=== PATIENT | female | born 1970 | race African-American/Black ===

== ENCOUNTER 2020-09-15 16:06 | Emergency (ER) | payer OTHER, SELFPAY ==
--- NOTE | ~2020-09-15 | CT_ITS ---
EXAMINATION: CT ABDOMEN AND PELVIS WITH CONTRAST CLINICAL INFORMATION: Epigastric pain COMPARISON: None TECHNIQUE: Multidetector volumetric images were obtained from the superior aspect of the liver through the pubic symphysis following administration 85 mL of Omnipaque 350 intravenous contrast. Sagittal and coronal reformatted images were obtained on the technologist's workstation. Oral contrast: No This CT examination was performed using dose optimization techniques as appropriate, variously including the following: *Automated exposure control *Adjustment of mA and/or kV according to patient size (this includes techniques or standardized protocols for targeted exams where dose is matched to indication/reason for exam; i.e. extremities or head) *Use of iterative reconstruction technique DLP: 461 mGy-cm FINDINGS: LUNG BASES: The visualized lung bases are unremarkable. LIVER, GALLBLADDER, AND BILIARY TREE: The liver is normal in size, shape, and attenuation. There is a 1.7 cm lesion in the caudate lobe measuring fluid the density likely cyst. There is mild periportal edema the gallbladder has been surgically removed. The proximal CBD is dilated measuring 1.2 cm. Distal CBD measures 1.7 x 1.5 cm PANCREAS: Unremarkable. SPLEEN: Unremarkable. ADRENAL GLANDS: Unremarkable. KIDNEYS AND URETERS: The kidneys are normal in size, shape, and attenuation. No hydronephrosis, hydroureter, or calculi seen. No perinephric stranding. BLADDER: Unremarkable. GASTROINTESTINAL TRACT: There is gastric sleeve surgical changes. The small bowel loops are normal caliber. There is moderate stool and gas seen in the right colon without distention. No free air or free fluid seen. ABDOMINAL WALL: There is a small umbilical hernia containing fat. LYMPH NODES: Normal. VASCULAR: Unremarkable. PELVIC VISCERA: The uterus is anteverted and appears unremarkable. No adnexal mass or free fluid seen. OSSEOUS STRUCTURES: There is no lytic or sclerotic process. There is mild bilateral facet arthropathy L4-L5 and L5-S1 disc levels. CT/CT abdomen pelvis w con IMPRESSION: Gastric sleeve surgical changes with a distended stomach. Mild constipation. Left hepatic lobe cyst.
[2020-09-15 17:13] VITALS: BP 180/100; PULSE 92; RESP 20; TEMP 36.1; O2SAT 100; BMI 29.2
[2020-09-15 17:56] LABS: MANUAL DIFF FLAG NO
[2020-09-15 17:57] LABS: Basophils Percent Auto 0.2 % (0-2); Eosinophils Absolute Auto 0.1 X10*3/uL (0.0-0.4); Eosinophils Percent Auto 0.6 % (0-4); Hematocrit 48.3 % (37-47); Hemoglobin 16.2 g/dl (12.0-16.0); Imm Gran Abs Auto 0.03 X10*3/uL (0.00-0.03); Imm Gran Pct Auto 0.2 % (0.0-0.4); Lymphocytes Absolute Auto 0.9 X10*3/uL (1.2-4.9); Lymphocytes Percent Auto 6.6 % (20-40); Mean Corpuscular HGB Conc 33.5 g/dl (31.0-35.0); Mean Corpuscular Hemoglobin 29.8 pg (27.0-33.0); Mean Corpuscular Volume 88.8 fL (80-98); Mean Platelet Volume 10.7 fL (9.4-12.3); Monocytes Absolute Auto 0.5 X10*3/uL (0.1-1.2); Monocytes Percent Auto 3.9 % (2-11); Neutrophils Absolute Auto 12.1 X10*3/uL (2.0-8.3); Neutrophils Percent Auto 88.5 % (45-73); Platelet Count 313 X10*3/uL (160-400); Red Blood Count 5.44 X10*6/uL (4.20-5.50); Red Cell Distribution Width 13.1 % (11.0-16.0); White Blood Count 13.7 X10*3/uL (4.8-10.8)
[2020-09-15 17:59] LABS: Glucose Urine UA NEG (NEG); Leukocyte Esterase Urine NEG (NEG); Nitrite Urine NEG (NEG); Specific Gravity - Urine >= 1.030 (1.005-1.025); Urine Blood NEG (NEG); Urine Ketones NEG (NEG); Urine Protein TRACE MG/DL (NEG-TRACE)
[2020-09-15 18:01] LABS: Appearance Urine CLEAR; Color Urine YELLOW
[2020-09-15 18:40] LABS: Influenza A PCR NEGATIVE (Negative); Influenza B PCR NEGATIVE (Negative); Resp Syncy Virus RNA Qual PCR NEGATIVE (Negative); SARS COV2 PCR INHOUSE NEGATIVE (Negative)
[2020-09-15 20:41] VITALS: BP 171/93; PULSE 89; RESP 18; TEMP 37; O2SAT 99
[2020-09-15 21:32] LABS: Alanine Aminotransferase 179 U/L (0-31); Albumin Level 4.3 g/dL (3.5-5.0); Alkaline Phosphatase 171 U/L (39-117); Anion Gap 12 (12-20); Aspartate Amino Transferase 372 U/L (5-31); Bilirubin Total 0.6 mg/dL (0.0-1.0); Blood Urea Nitrogen 14 mg/dL (9-16); Calcium 9.2 mg/dL (8.4-10.2); Carbon Dioxide 30 mmol/L (22-29); Chloride 103 mmol/L (96-108); Creatinine Clr Calc Pharmacy 71.8; Estimated Glomerular Filt Rate > 60; Glucose Random 105 mg/dL (60-115); Potassium 3.9 mmol/L (3.3-5.1); Sodium 141 mmol/L (135-145); Total Protein 7.2 g/dL (6.5-8.0)
--- NOTE | 2020-09-15 21:38 | ED.ABDPAIN ---
HPI - Abdominal Pain General Chief Complaint: Abdominal Pain Stated Complaint: SYMPTOMS Time Seen by Provider: 09/15/20 21:12 Source: patient Mode of arrival: ambulatory Limitations: no limitations History of Present Illness HPI narrative: Patient comes emergency room complaining of nausea, vomiting, diarrhea, and abdominal cramping, worse in the epigastric area. Patient states she has had this episodes in the past, has been seen by Gastroenterology. Patient states she had an upper endoscopy, she was told that she has a small ?lump somewhere in the stomach?. Patient denies fever chills. Related Data Previous Rx's Medication Instructions Recorded ibuprofen 800 mg tablet 800 mg PO TID PRN #90 tab 03/16/20 ProAir HFA 90 mcg/actuation 2 puff INHALATION Q6H PRN 30 Days 07/19/20 aerosol inhaler #8.5 g NS albuterol sulfate 90 mcg/actuation 2 puff INHALATION QID PRN #18 g 07/30/20 aerosol inhaler fluticasone propionate 110 1 puff INHALATION BID 30 Days #12 g 08/30/20 mcg/actuation HFA aerosol inhaler hyoscyamine sulfate 0.125 mg PO QID PRN #10 tab 09/15/20 ondansetron HCl [Zofran] 4 mg PO Q6H PRN #10 tab 09/15/20 Allergies Allergy/AdvReac Type Severity Reaction Status Date / Time No Known Allergies Allergy Unverified 01/22/20 14:59 [No Known Allergies*] Review of Systems Review of Systems Constitutional : No Weight loss, No Fever, No Chills, No Night Sweats, No Fatigue, No Malaise ENT/Mouth : No Hearing loss, No Ear Pain, No Nasal Congestion, No Sinus Pain, No Hoarseness, No sore throat, No Rhinorrhea, No Swallowing Difficulty Eyes: No Eye Pain, No Swelling, No Redness, No Foreign Body, No Discharge, No Vision Changes Cardiovascular : No Chest Pain, No SOB, No Dyspnea on Exertion, No Orthopnea, No Edema, No Palpitations Respiratory : No Cough, No Sputum, No Wheezing, No Smoke Exposure, No Dyspnea Gastrointestinal : Complaining of nausea, vomiting, diarrhea, no constipation, diffuse abdominal cramping, No Hematochezia, No Melena Genitourinary : no irregular bleeding, No Dysuria, No Urinary Frequency, No Hematuria, No Urinary Incontinence, No Urgency, No Flank Pain, No Urinary Flow Changes, No Hesitancy Musculoskeletal : No joint pain, No Myalgias, No Joint Swelling Skin : No Skin Lesions, No rash Neuro : No Weakness, No Numbness, No Paresthesias, No Loss of Consciousness, No Dizziness, No Headache Psych : No Anxiety/Panic, No Depression, No SI/HI/AH/VH, No Social Issues, Heme/Lymph: No Bruising, No Bleeding,No Lymphadenopathy Endocrine : No Polyuria, No Polydipsia, No Temperature Intolerance Physical Exam Vital Signs: Vital Signs: Last Vital Signs Temp 98.6 F 09/15/20 20:41 Pulse 89 09/15/20 20:41 Resp 18 09/15/20 22:00 BP 171/93 H 09/15/20 20:41 Pulse Ox 99 09/15/20 20:41 Body Mass Index 29.2 Appearance: Alert. Oriented X3. No acute distress. Well-appearing Eyes: Pupils equal, round and reactive to light. ENT: Pharynx normal. Moist mucous membranes Neck: Normal inspection. Neck supple. No lymph nodes noted. No crepitus CVS: Normal heart rate and rhythm. Pulses normal. Normal S1 and S2 Respiratory: No respiratory distress. Breath sounds normal. No Wheezing. No rales Abdomen: Soft and mild discomfort to palpation over the epigastric area, No rigidity. No distention. Skin: Skin warm and dry. Normal skin color. Normal skin turgor. Extremities: No lower extremity edema. No lower extremity edema. No Lacerations. No Rash Neuro: Oriented X 3. No motor deficit. No sensory deficit. Moving all extermities. No slurred speech. Course Course Course Narrative: I discussed the labs and imaging with the patient, patient likely having a viral syndrome causing the nausea vomiting and diarrhea. MDM - Abdominal Pain Lab Data Result diagrams: 09/15/20 17:47 09/15/20 20:47 Labs: Lab Results 09/15/20 09/15/20 09/15/20 Range/Units 17:47 17:47 17:48 WBC 13.7 H (4.8-10.8) X10*3/uL RBC 5.44 (4.20-5.50) X10*6/uL Hgb 16.2 H (12.0-16.0) g/dl Hct 48.3 H (37-47) % MCV 88.8 (80-98) fL MCH 29.8 (27.0-33.0) pg MCHC 33.5 (31.0-35.0) g/dl RDW 13.1 (11.0-16.0) % Plt Count 313 (160-400) X10*3/uL MPV 10.7 (9.4-12.3) fL Immature Gran % (Auto) 0.2 (0.0-0.4) % Neut % (Auto) 88.5 H (45-73) % Lymph % (Auto) 6.6 L (20-40) % [place] % (Auto) 3.9 (2-11) % Eos % (Auto) 0.6 (0-4) % Baso % (Auto) 0.2 (0-2) % Lymph # (Auto) 0.9 L (1.2-4.9) X10*3/uL [place] # (Auto) 0.5 (0.1-1.2) X10*3/uL Eos # (Auto) 0.1 (0.0-0.4) X10*3/uL Baso # (Auto) 0.0 (0.0-0.2) X10*3/uL Abs Immat Gran (auto) 0.03 (0.00-0.03) X10*3/uL Absolute Neuts (auto) 12.1 H (2.0-8.3) X10*3/uL Absolute Nucleated RBC 0.000 (0.0-0.012) X10*3/uL Nucleated RBC % (auto) 0.0 (0.0-0.2) /100WBC Hold Blue Top SEE NOTE Sodium (135-145) mmol/L Potassium (3.3-5.1) mmol/L Chloride (96-108) mmol/L Carbon Dioxide (22-29) mmol/L Anion Gap (12-20) BUN (9-16) mg/dL Creatinine (0.5-1.4) mg/dL Estim Creat Clear Calc Estimated GFR Random Glucose (60-115) mg/dL Calcium (8.4-10.2) mg/dL Total Bilirubin (0.0-1.0) mg/dL Direct Bilirubin (0.0-0.5) mg/dL AST (5-31) U/L ALT (0-31) U/L Alkaline Phosphatase (39-117) U/L Total Protein (6.5-8.0) g/dL Albumin (3.5-5.0) g/dL Lipase (8-78) U/L Urine Color Urine Appearance Urine pH (5.0-8.0) Ur Specific [place] (1.005-1.025) Urine Protein (NEG-TRACE) MG/DL Urine Glucose (UA) (NEG) MG/DL Urine Ketones (NEG) MG/DL Urine Blood (NEG) Urine Nitrite (NEG) Ur Leukocyte Esterase (NEG) Urine Opiates Screen (Not Detect) Ur Barbiturates Screen (Not Detect) Ur Phencyclidine Scrn (Not Detect) Ur Amphetamines Screen (Not Detect) U Benzodiazepines Scrn (Not Detect) Urine Cocaine Screen (Not Detect) U Marijuana (THC) Screen (Not Detect) Coronavirus (PCR) NEGATIVE (Negative) Influenza Type A (PCR) NEGATIVE (Negative) Influenza Type B (PCR) NEGATIVE (Negative) RSV RNA Qual (PCR) NEGATIVE (Negative) 09/15/20 09/15/20 09/15/20 Range/Units 17:51 17:51 20:47 WBC (4.8-10.8) X10*3/uL RBC (4.20-5.50) X10*6/uL Hgb (12.0-16.0) g/dl Hct (37-47) % MCV (80-98) fL MCH (27.0-33.0) pg MCHC (31.0-35.0) g/dl RDW (11.0-16.0) % Plt Count (160-400) X10*3/uL MPV (9.4-12.3) fL Immature Gran % (Auto) (0.0-0.4) % Neut % (Auto) (45-73) % Lymph % (Auto) (20-40) % [place] % (Auto) (2-11) % Eos % (Auto) (0-4) % Baso % (Auto) (0-2) % Lymph # (Auto) (1.2-4.9) X10*3/uL [place] # (Auto) (0.1-1.2) X10*3/uL Eos # (Auto) (0.0-0.4) X10*3/uL Baso # (Auto) (0.0-0.2) X10*3/uL Abs Immat Gran (auto) (0.00-0.03) X10*3/uL Absolute Neuts (auto) (2.0-8.3) X10*3/uL Absolute Nucleated RBC (0.0-0.012) X10*3/uL Nucleated RBC % (auto) (0.0-0.2) /100WBC Hold Blue Top Sodium 141 (135-145) mmol/L Potassium 3.9 (3.3-5.1) mmol/L Chloride 103 (96-108) mmol/L Carbon Dioxide 30 H (22-29) mmol/L Anion Gap 12 (12-20) BUN 14 (9-16) mg/dL Creatinine 0.84 (0.5-1.4) mg/dL Estim Creat Clear Calc 71.8 Estimated GFR > 60 Random Glucose 105 (60-115) mg/dL Calcium 9.2 (8.4-10.2) mg/dL Total Bilirubin 0.6 (0.0-1.0) mg/dL Direct Bilirubin 0.3 (0.0-0.5) mg/dL AST 372 H (5-31) U/L ALT 179 H (0-31) U/L Alkaline Phosphatase 171 H (39-117) U/L Total Protein 7.2 (6.5-8.0) g/dL Albumin 4.3 (3.5-5.0) g/dL Lipase 79 H (8-78) U/L Urine Color YELLOW Urine Appearance CLEAR Urine pH 6.0 (5.0-8.0) Ur Specific [place] >= 1.030 H (1.005-1.025) Urine Protein TRACE (NEG-TRACE) MG/DL Urine Glucose (UA) NEG (NEG) MG/DL Urine Ketones NEG (NEG) MG/DL Urine Blood NEG (NEG) Urine Nitrite NEG (NEG) Ur Leukocyte Esterase NEG (NEG) Urine Opiates Screen Not Detected (Not Detect) Ur Barbiturates Screen Not Detected (Not Detect) Ur Phencyclidine Scrn Not Detected (Not Detect) Ur Amphetamines Screen Not Detected (Not Detect) U Benzodiazepines Scrn Not Detected (Not Detect) Urine Cocaine Screen POSITIVE H (Not Detect) U Marijuana (THC) Screen POSITIVE H (Not Detect) Coronavirus (PCR) (Negative) Influenza Type A (PCR) (Negative) Influenza Type B (PCR) (Negative) RSV RNA Qual (PCR) (Negative) Imaging Data CT scan - abdomen: Radiologist's impression: COMPARISON: None TECHNIQUE: Multidetector volumetric images were obtained from the superior aspect of the liver through the pubic symphysis following administration 85 mL of Omnipaque 350 intravenous contrast. Sagittal and coronal reformatted images were obtained on the technologist's workstation. Oral contrast: No This CT examination was performed using dose optimization techniques as appropriate, variously including the following: *Automated exposure control *Adjustment of mA and/or kV according to patient size (this includes techniques or standardized protocols for targeted exams where dose is matched to indication/reason for exam; i.e. extremities or head) *Use of iterative reconstruction technique DLP: 461 mGy-cm FINDINGS: LUNG BASES: The visualized lung bases are unremarkable. LIVER, GALLBLADDER, AND BILIARY TREE: The liver is normal in size, shape, and attenuation. There is a 1.7 cm lesion in the caudate lobe measuring fluid the density likely cyst. There is mild periportal edema the gallbladder has been surgically removed. The proximal CBD is dilated measuring 1.2 cm. Distal CBD measures 1.7 x 1.5 cm PANCREAS: Unremarkable. SPLEEN: Unremarkable. ADRENAL GLANDS: Unremarkable. KIDNEYS AND URETERS: The kidneys are normal in size, shape, and attenuation. No hydronephrosis, hydroureter, or calculi seen. No perinephric stranding. BLADDER: Unremarkable. GASTROINTESTINAL TRACT: There is gastric sleeve surgical changes. The small bowel loops are normal caliber. There is moderate stool and gas seen in the right colon without distention. No free air or free fluid seen. ABDOMINAL WALL: There is a small umbilical hernia containing fat. LYMPH NODES: Normal. VASCULAR: Unremarkable. PELVIC VISCERA: The uterus is anteverted and appears unremarkable. No adnexal mass or free fluid seen. OSSEOUS STRUCTURES: There is no lytic or sclerotic process. There is mild bilateral facet arthropathy L4-L5 and L5-S1 disc levels. CT/CT abdomen pelvis w con IMPRESSION: Gastric sleeve surgical changes with a distended stomach. Mild constipation. Left hepatic lobe cyst. Discharge Plan Discharge Clinical Impression: Abdominal pain, vomiting, and diarrhea Patient Disposition: Home, Self-Care Instructions: Abdominal Pain (ED) Additional Instructions: Please follow-up with your primary care physician tomorrow. If you have any worsening or new symptoms, please return to the emergency room or call 911 Prescriptions: New hyoscyamine sulfate 0.125 mg tablet,disintegrating 0.125 mg PO QID PRN (Reason: dyspepsia) Qty: 10 RF: 0 ondansetron HCl [Zofran] 4 mg tablet 4 mg PO Q6H PRN (Reason: nausea and vomiting) Qty: 10 RF: 0 No Action ibuprofen 800 mg tablet 800 mg PO TID PRN (Reason: for pain) Qty: 90 RF: 5 albuterol sulfate [ProAir HFA] 90 mcg/actuation HFA aerosol inhaler 2 puff inhalation Q6H PRN (Reason: shortness of breath or wheezing) 30 Days Qty: 8.5 RF: 5 albuterol sulfate 90 mcg/actuation HFA aerosol inhaler 2 puff inhalation QID PRN (Reason: shortness of breath or wheezing) Qty: 18 RF: 5 Flovent HFA 110 mcg/actuation HFA aerosol inhaler 1 puff inhalation BID 30 Days Qty: 12 RF: 5 PMFSH Past Medical History Medical History Asthma Surgical History History of sleeve gastrectomy Family History Family History (Updated 02/07/20 @ 10:12 by ANAMIKA Dumont) Father No problems noted. Mother No problems noted. Social History Social History Smoking Status: Current every day smoker Smoked in Last 30 Days: Yes Use of substances other than those prescribed or required for medical reasons: Yes Substance Use Type: Marijuana Advance Directives: No Advance Directives Information Provided: No Patient : No (DENIES)
[2020-09-15 21:53] LABS: Amphetamine Screen Urine Not Detected (Not Detect); Barbiturates, Urine Not Detected (Not Detect); Benzodiazepines Screen Urine Not Detected (Not Detect); Cannabinoid Screen Urine POSITIVE (Not Detect); Cocaine Screen Urine POSITIVE (Not Detect); Opiate Screen Urine Not Detected (Not Detect); Phencyclidine Screen Urine Not Detected (Not Detect)
[2020-09-15] MEDS: iohexoL 350 MG/ML 100 ML INFUS..BTL IV (21:54)
[2020-09-15 21:57] LABS: Bilirubin Direct 0.3 mg/dL (0.0-0.5); Lipase 79 U/L (8-78)
[2020-09-15 22:00] VITALS: RESP 18
[2020-09-15] MEDS: ondansetron HCL 4 MG/2 ML VIAL IVPUSH (22:24)
--- NOTE | 2020-09-15 22:42 | PC.NURSE ---
pt reports nausea while eating chips in bed. affect is normal. monitoring at this time.
[2020-09-15] MEDS: PHENobarb/Hyoscy/Atropine/Scop 10 ML ELIXIR PO (23:18)
== END 2020-09-15 23:21 | disposition home or self-care (01) ==
PROVIDERS: Nurse Practitioner Family; Emergency Provider Emergency Medicine
DX: R10.13 Epigastric pain (principal); Z20.822 Contact with and (suspected) exposure to COVID-19; R11.10 Vomiting, unspecified; R19.7 Diarrhea, unspecified; K76.89 Other specified diseases of liver; K42.9 Umbilical hernia without obstruction or gangrene; F14.90 Cocaine use, unspecified, uncomplicated; F12.90 Cannabis use, unspecified, uncomplicated
CPT/HCPCS: 0241U; 36415; 74177; 80053; 80076; 80307; 81003; 83690; 85025; 96374; 99284; 99285; J2405; Q9967

== ENCOUNTER → 2021-04-07 13:57 | Outpatient (BNVA) | payer OTHER, SELFPAY | PROVIDERS: PCP Internal Medicine; Referring Provider Internal Medicine; Visit Provider Internal Medicine Cardiovascular Disease | DX: I10 Essential (primary) hypertension (principal); R94.31 Abnormal electrocardiogram [ECG] [EKG]; F17.210 Nicotine dependence, cigarettes, uncomplicated; F12.90 Cannabis use, unspecified, uncomplicated | CPT/HCPCS: 93005; 99202; 99212 ==

== ENCOUNTER 2021-04-21 11:17 | Emergency (ER) | payer OTHER, SELFPAY ==
[2021-04-21] VITALS (8 sets, daily range): BP systolic 140–259; BP diastolic 55–164; PULSE 66–101; RESP 16–18; TEMP 36.7–36.9; O2SAT 97–100; BMI 26.4
--- NOTE | ~2021-04-21 | XR_ITS ---
EXAMINATION: XR CHEST CLINICAL INFORMATION: Hypertension COMPARISON: Chest radiographs 10/14/2019, 11/26/2018, CT abdomen 09/15/2020 TECHNIQUE: Portable upright AP view of the chest was obtained. FINDINGS: Heart is within normal size. The vascularity is normal. There is no airspace consolidation or groundglass opacity or effusion. The hilar and mediastinal contours are unremarkable. No visible acute bony abnormality. XR/XR chest 1V IMPRESSION: Unremarkable examination.
--- NOTE | ~2021-04-21 | CT_ITS ---
EXAMINATION: CT HEAD WITHOUT CONTRAST (STROKE PROTOCOL) CLINICAL INFORMATION: Stroke protocol. Weakness and headache COMPARISON: CT brain 12/02/2018 TECHNIQUE: Contiguous axial imaging was performed from the skull base to vertex without intravenous administration of contrast. This CT examination was performed using dose optimization techniques as appropriate, variously including the following: *Automated exposure control *Adjustment of mA and/or kV according to patient size (this includes techniques or standardized protocols for targeted exams where dose is matched to indication/reason for exam; i.e. extremities or head) *Use of iterative reconstruction technique DLP: 656 mGy-cm FINDINGS: There is no intracranial hemorrhage, hematoma, or extra-axial fluid collection. The ventricles are normal in size. There is no hydrocephalus, edema, or mass effect. The toure-white matter differentiation appears symmetric. There is no acute infarct or mass lesion. The calvarium appears intact. There is no pneumocephalus or orbital emphysema. Is complete opacification of bilateral maxillary sinuses. Rest the paranasal sinuses and mastoid air cells are well-aerated and clear. Thickening. There are no air-fluid levels. CT/CT head for stroke IMPRESSION: No acute intracranial process seen. Chronic bilateral maxillary sinusitis. This critical result was discussed with Dr. Lorrie Campos at 12:22 PMon 04/21/2021. It was ascertained that the content and urgency of the report was understood at the time of direct communication.
--- NOTE | 2021-04-21 11:50 | ECG_ITS ---
Test Reason : HIGH BP Blood Pressure : / mmHG Vent. Rate : 104 BPM Atrial Rate : 104 BPM P-R Int : 136 ms QRS Dur : 080 ms QT Int : 386 ms P-R-T Axes : 054 074 019 degrees QTc Int : 507 ms Sinus tachycardia Minimal voltage criteria for LVH, may be normal variant ( Sokolow-Issa ) Nonspecific T wave abnormality Abnormal ECG When compared with ECG of 14-OCT-2019 10:17, Nonspecific T wave abnormality now evident in Lateral leads Referred By: Lorrie Campos Electronically Signed By:KAYLYN TREVINO MD
--- NOTE | 2021-04-21 11:51 | ED_ITS ---
HPI - Neuro Symptoms/Deficit General Chief Complaint: Neuro Symptoms/Deficit Stated Complaint: headache high bp Time Seen by Provider: 04/21/21 11:49 Source: patient Mode of arrival: ambulatory Limitations: no limitations History of Present Illness HPI Narrative: 50 yo female with hx of HTN on 5 medications amlodipine 10mg, carvedilol 12.5mg BID, hydralazine 25mg TID, HCTZ 25mg daily, losartan 100mg daily reports taking herself off BP medications 2 days ago using cocaine 3 days ago and drinking, feeling dizzy so she stopped her medications. Her spouse noted her BP was very high today, felt weak all over with headaches. Triage noted R sided weakness I do not appreciate that but she is overall diffusely weak and not participating in exam well. very poor historian. Onset (ago): day(s) (yesterday then became much worse this AM) Timing confirmed by: spouse Location: other (head) History of same: No Severity: moderate Quality: weak Relieving factors: none Exacerbating factors: other (used cocaine, did not take medications) Context: gradual onset On Anticoagulants: No Associated symptoms: headaches, malaise and weakness Related Data Home Medications Medication Instructions Recorded Confirmed fluticasone propionate 50 2 spray INTRANASAL DAILY PRN g 02/17/21 04/21/21 mcg/actuation nasal spray,suspension loratadine 10 mg capsule 10 mg PO DAILY PRN 02/17/21 04/21/21 omeprazole 40 mg capsule,delayed 40 mg PO DAILY PRN 02/17/21 04/21/21 release Previous Rx's Medication Instructions Recorded albuterol sulfate 90 mcg/actuation 2 puff INHALATION QID PRN #18 g 02/16/21 aerosol inhaler fluticasone propionate 110 1 puff INHALATION BID 30 Days #12 g 02/16/21 mcg/actuation HFA aerosol inhaler (Flovent HFA) ibuprofen 800 mg tablet 800 mg PO TID PRN #90 tab 02/16/21 carvedilol 25 mg tablet (Coreg) 25 mg PO BID #60 tab 04/07/21 hydralazine 50 mg tablet 50 mg PO BID #60 tab 04/07/21 blood pressure monitor #1 ea 04/18/21 Allergies Allergy/AdvReac Type Severity Reaction Status Date / Time No Known Allergies Allergy Verified 04/18/21 14:49 [No Known Allergies*] Review of Systems Review of Systems: Constitutional : No Fever, No Chills, No Fatigue ENT/Mouth : No sore throat, No Rhinorrhea Eyes: No Eye Pain, No Swelling, No Redness Cardiovascular : No Chest Pain, No SOB, No Dyspnea on Exertion Respiratory : No Cough, No Sputum Gastrointestinal : No Nausea, No Vomiting, No Diarrhea, No abdominal Pain Genitourinary : No Dysuria, No Urinary Frequency, No Hematuria, Musculoskeletal : No joint pain, No Myalgias, No Joint Swelling Skin : No Skin Lesions, No rash Neuro : pos Weakness, No Numbness, No Dizziness, positive Headache Psych : No Anxiety/Panic, No Depression Heme/Lymph: No Bruising, No Bleeding,No Lymphadenopathy Endocrine : No Polyuria, No Polydipsia All other systems reviewed and are negative [facility] Past Medical History Medical History Allergic rhinitis Anxiety Asthma Hemorrhagic gastritis Insomnia Lumbar spondylosis Overweight (BMI 25.0-29.9) Smoker Surgical History History of sleeve gastrectomy Family History Family History Father No problems noted. Mother No problems noted. Social History Social History Housing: Apartment Alcohol intake: current Alcohol intake frequency: holidays/special occasions only Patient Tobacco Use Status: Current everyday Tobacco user Cigarettes Per Day: 6 Second Hand Smoke Exposure: Yes Use of substances other than those prescribed or required for medical reasons: Yes Substance Use Type: Crack/Cocaine Advance Directives: No Advance Directives Information Provided: Yes Patient : No service: No Current occupational status: disabled Physical Exam Vital Signs: Vital Signs: Last Vital Signs Temp 98.0 F 04/21/21 11:58 Pulse 101 H 04/21/21 15:57 Resp 18 04/21/21 15:57 BP 148/76 H 04/21/21 15:57 Pulse Ox 98 04/21/21 15:57 BMI result Body Mass Index 26.4 Appearance: Somnolent Oriented X3. No acute distress. Eyes: Pupils equal, round and reactive to light. EOMi ENT: Pharynx normal. Neck: Normal inspection. Neck supple. CVS: Normal heart rate and rhythm. Pulses normal. Respiratory: No respiratory distress. Breath sounds normal. Abdomen: Soft and nontender. Skin: Skin warm and dry. Normal skin color. Normal skin turgor. Extremities: No lower extremity edema. Neuro: Oriented X 3. No motor deficit. No sensory deficit. CN2-12 intact . no drift Course Course Course Narrative: not a candidate for tPa given low NIH score as well as markedly high blood pressure stroke CT scan negative for ICH 1222pm somehow midpush of hydralazine BP 180 now she is markedly awake no deficits very perky smiling feels better. significant drop in BP will add on IVF, no neuro complaints at this time, unexpected drop since she is on 5 BP medications and only received 20mg IV hydralazine and she is normally on 25mg TID of hydralazine daily - NIH 0 feels much better BP markedly improved feels much better no symptoms offered CM to help with her encouraged to take BP medications and no cocaine use she is upset and not taking good care of herself she denies SI to me but states she is overwhelmed at home due to her 's dementia and that she puts his health before hers. trop not over delta has no CP/SOB no neuro findings, BP remained stable. MDM - Neuro Symptoms/Deficit MDM Narrative Medical decision making narrative: 50 yo female with poorly controlled HTN on 5 medications reports she has not been on meds for 5 days and used cocaine now comes in with headaches, dizziness, feeling weak - at this time will need stat head CT for ICH, I do not have a focal deficit, will attempt BP control with IV hydralazine, labs, EKG - start some of her oral medications - anticipate admission Lab Data Result diagrams: 04/21/21 12:05 04/21/21 12:05 Labs: Lab Results 04/21/21 04/21/21 04/21/21 Range/Units 11:54 12:05 12:05 WBC 8.2 (4.8-10.8) X10*3/uL RBC 4.86 (4.20-5.50) X10*6/uL Hgb 14.8 (12.0-16.0) g/dl Hct 42.8 (37.0-47.0) % MCV 88.1 (80.0-98.0) fL MCH 30.5 (27.0-33.0) pg MCHC 34.6 (31.0-35.0) g/dl RDW 13.2 (11.0-16.0) % Plt Count 424 H (160-400) X10*3/uL MPV 9.9 (9.4-12.3) fL Immature Gran % (Auto) 0.2 (0.0-0.4) % Neut % (Auto) 61.3 (45-73) % Lymph % (Auto) 29.5 (20-40) % [place] % (Auto) 6.6 (2-11) % Eos % (Auto) 1.8 (0-4) % Baso % (Auto) 0.6 (0-2) % Lymph # (Auto) 2.4 (1.2-4.9) X10*3/uL [place] # (Auto) 0.5 (0.1-1.2) X10*3/uL Eos # (Auto) 0.2 (0.0-0.4) X10*3/uL Baso # (Auto) 0.1 (0.0-0.2) X10*3/uL Abs Immat Gran (auto) 0.02 (0.00-0.03) X10*3/uL Absolute Neuts (auto) 5.0 (2.0-8.3) x10*3/uL Absolute Nucleated RBC 0.000 (0.0-0.012) X10*3/uL Nucleated RBC % (auto) 0.0 (0.0-0.2) /100WBC PT 11.4 (9.9-13.0) SEC INR 1.0 (0.9-1.1) APTT 33.3 (24.1-38.0) SEC Sodium (135-145) mmol/L Potassium (3.3-5.1) mmol/L Chloride (96-108) mmol/L Carbon Dioxide (22-29) mmol/L Anion Gap (12-20) BUN (9-16) mg/dL Creatinine (0.5-1.4) mg/dL Estim Creat Clear Calc Estimated GFR POC Glucose 81 (60-115) mg/dL Random Glucose (60-115) mg/dL Calcium (8.4-10.2) mg/dL Magnesium (1.6-2.6) mg/dL Total Bilirubin (0.0-1.0) mg/dL Direct Bilirubin (0.0-0.5) mg/dL AST (5-31) U/L ALT (0-31) U/L Alkaline Phosphatase (39-117) U/L Troponin I High Sens (<3.5-17.0) ng/L Total Protein (6.5-8.0) g/dL Albumin (3.5-5.0) g/dL Lipase (8-78) U/L Urine Color Urine Appearance Urine pH (5.0-8.0) Ur Specific [place] (1.005-1.025) Urine Protein (NEG-TRACE) MG/DL Urine Glucose (UA) (NEG) MG/DL Urine Ketones (NEG) MG/DL Urine Blood (NEG) Urine Nitrite (NEG) Ur Leukocyte Esterase (NEG) Urine Opiates Screen (Not Detect) Urine Fentanyl Screen (Not Detect) Ur Barbiturates Screen (Not Detect) Ur Phencyclidine Scrn (Not Detect) Ur Amphetamines Screen (Not Detect) U Benzodiazepines Scrn (Not Detect) Urine Cocaine Screen (Not Detect) U Marijuana (THC) Screen (Not Detect) Ethyl Alcohol mg/dL COVID-19 (LINDA) (Negative) COVID-19 Clin Com 04/21/21 04/21/21 04/21/21 Range/Units 12:05 12:05 12:05 WBC (4.8-10.8) X10*3/uL RBC (4.20-5.50) X10*6/uL Hgb (12.0-16.0) g/dl Hct (37.0-47.0) % MCV (80.0-98.0) fL MCH (27.0-33.0) pg MCHC (31.0-35.0) g/dl RDW (11.0-16.0) % Plt Count (160-400) X10*3/uL MPV (9.4-12.3) fL Immature Gran % (Auto) (0.0-0.4) % Neut % (Auto) (45-73) % Lymph % (Auto) (20-40) % [place] % (Auto) (2-11) % Eos % (Auto) (0-4) % Baso % (Auto) (0-2) % Lymph # (Auto) (1.2-4.9) X10*3/uL [place] # (Auto) (0.1-1.2) X10*3/uL Eos # (Auto) (0.0-0.4) X10*3/uL Baso # (Auto) (0.0-0.2) X10*3/uL Abs Immat Gran (auto) (0.00-0.03) X10*3/uL Absolute Neuts (auto) (2.0-8.3) x10*3/uL Absolute Nucleated RBC (0.0-0.012) X10*3/uL Nucleated RBC % (auto) (0.0-0.2) /100WBC PT (9.9-13.0) SEC INR (0.9-1.1) APTT (24.1-38.0) SEC Sodium 144 (135-145) mmol/L Potassium 3.3 (3.3-5.1) mmol/L Chloride 105 (96-108) mmol/L Carbon Dioxide 29 (22-29) mmol/L Anion Gap 13 (12-20) BUN 13 (9-16) mg/dL Creatinine 0.94 (0.5-1.4) mg/dL Estim Creat Clear Calc 61.1 Estimated GFR > 60 POC Glucose (60-115) mg/dL Random Glucose 91 (60-115) mg/dL Calcium 9.6 (8.4-10.2) mg/dL Magnesium 2.0 (1.6-2.6) mg/dL Total Bilirubin 0.8 (0.0-1.0) mg/dL Direct Bilirubin 0.3 (0.0-0.5) mg/dL AST 19 D (5-31) U/L ALT 13 (0-31) U/L Alkaline Phosphatase 114 D (39-117) U/L Troponin I High Sens 55.8 H* (<3.5-17.0) ng/L Total Protein 8.0 (6.5-8.0) g/dL Albumin 4.7 (3.5-5.0) g/dL Lipase 21 (8-78) U/L Urine Color Urine Appearance Urine pH (5.0-8.0) Ur Specific [place] (1.005-1.025) Urine Protein (NEG-TRACE) MG/DL Urine Glucose (UA) (NEG) MG/DL Urine Ketones (NEG) MG/DL Urine Blood (NEG) Urine Nitrite (NEG) Ur Leukocyte Esterase (NEG) Urine Opiates Screen (Not Detect) Urine Fentanyl Screen (Not Detect) Ur Barbiturates Screen (Not Detect) Ur Phencyclidine Scrn (Not Detect) Ur Amphetamines Screen (Not Detect) U Benzodiazepines Scrn (Not Detect) Urine Cocaine Screen (Not Detect) U Marijuana (THC) Screen (Not Detect) Ethyl Alcohol mg/dL COVID-19 (LINDA) Negative (Negative) COVID-19 Clin Com See Note 04/21/21 04/21/21 04/21/21 Range/Units 12:05 14:58 14:58 WBC (4.8-10.8) X10*3/uL RBC (4.20-5.50) X10*6/uL Hgb (12.0-16.0) g/dl Hct (37.0-47.0) % MCV (80.0-98.0) fL MCH (27.0-33.0) pg MCHC (31.0-35.0) g/dl RDW (11.0-16.0) % Plt Count (160-400) X10*3/uL MPV (9.4-12.3) fL Immature Gran % (Auto) (0.0-0.4) % Neut % (Auto) (45-73) % Lymph % (Auto) (20-40) % [place] % (Auto) (2-11) % Eos % (Auto) (0-4) % Baso % (Auto) (0-2) % Lymph # (Auto) (1.2-4.9) X10*3/uL [place] # (Auto) (0.1-1.2) X10*3/uL Eos # (Auto) (0.0-0.4) X10*3/uL Baso # (Auto) (0.0-0.2) X10*3/uL Abs Immat Gran (auto) (0.00-0.03) X10*3/uL Absolute Neuts (auto) (2.0-8.3) x10*3/uL Absolute Nucleated RBC (0.0-0.012) X10*3/uL Nucleated RBC % (auto) (0.0-0.2) /100WBC PT (9.9-13.0) SEC INR (0.9-1.1) APTT (24.1-38.0) SEC Sodium (135-145) mmol/L Potassium (3.3-5.1) mmol/L Chloride (96-108) mmol/L Carbon Dioxide (22-29) mmol/L Anion Gap (12-20) BUN (9-16) mg/dL Creatinine (0.5-1.4) mg/dL Estim Creat Clear Calc Estimated GFR POC Glucose (60-115) mg/dL Random Glucose (60-115) mg/dL Calcium (8.4-10.2) mg/dL Magnesium (1.6-2.6) mg/dL Total Bilirubin (0.0-1.0) mg/dL Direct Bilirubin (0.0-0.5) mg/dL AST (5-31) U/L ALT (0-31) U/L Alkaline Phosphatase (39-117) U/L Troponin I High Sens 66.8 H* (<3.5-17.0) ng/L Total Protein (6.5-8.0) g/dL Albumin (3.5-5.0) g/dL Lipase (8-78) U/L Urine Color YELLOW Urine Appearance HAZY Urine pH 6.5 (5.0-8.0) Ur Specific [place] 1.015 (1.005-1.025) Urine Protein NEG (NEG-TRACE) MG/DL Urine Glucose (UA) NEG (NEG) MG/DL Urine Ketones NEG (NEG) MG/DL Urine Blood NEG (NEG) Urine Nitrite NEG (NEG) Ur Leukocyte Esterase NEG (NEG) Urine Opiates Screen (Not Detect) Urine Fentanyl Screen (Not Detect) Ur Barbiturates Screen (Not Detect) Ur Phencyclidine Scrn (Not Detect) Ur Amphetamines Screen (Not Detect) U Benzodiazepines Scrn (Not Detect) Urine Cocaine Screen (Not Detect) U Marijuana (THC) Screen (Not Detect) Ethyl Alcohol < 10 mg/dL COVID-19 (LINDA) (Negative) COVID-19 Clin Com 04/21/21 Range/Units 14:58 WBC (4.8-10.8) X10*3/uL RBC (4.20-5.50) X10*6/uL Hgb (12.0-16.0) g/dl Hct (37.0-47.0) % MCV (80.0-98.0) fL MCH (27.0-33.0) pg MCHC (31.0-35.0) g/dl RDW (11.0-16.0) % Plt Count (160-400) X10*3/uL MPV (9.4-12.3) fL Immature Gran % (Auto) (0.0-0.4) % Neut % (Auto) (45-73) % Lymph % (Auto) (20-40) % [place] % (Auto) (2-11) % Eos % (Auto) (0-4) % Baso % (Auto) (0-2) % Lymph # (Auto) (1.2-4.9) X10*3/uL [place] # (Auto) (0.1-1.2) X10*3/uL Eos # (Auto) (0.0-0.4) X10*3/uL Baso # (Auto) (0.0-0.2) X10*3/uL Abs Immat Gran (auto) (0.00-0.03) X10*3/uL Absolute Neuts (auto) (2.0-8.3) x10*3/uL Absolute Nucleated RBC (0.0-0.012) X10*3/uL Nucleated RBC % (auto) (0.0-0.2) /100WBC PT (9.9-13.0) SEC INR (0.9-1.1) APTT (24.1-38.0) SEC Sodium (135-145) mmol/L Potassium (3.3-5.1) mmol/L Chloride (96-108) mmol/L Carbon Dioxide (22-29) mmol/L Anion Gap (12-20) BUN (9-16) mg/dL Creatinine (0.5-1.4) mg/dL Estim Creat Clear Calc Estimated GFR POC Glucose (60-115) mg/dL Random Glucose (60-115) mg/dL Calcium (8.4-10.2) mg/dL Magnesium (1.6-2.6) mg/dL Total Bilirubin (0.0-1.0) mg/dL Direct Bilirubin (0.0-0.5) mg/dL AST (5-31) U/L ALT (0-31) U/L Alkaline Phosphatase (39-117) U/L Troponin I High Sens (<3.5-17.0) ng/L Total Protein (6.5-8.0) g/dL Albumin (3.5-5.0) g/dL Lipase (8-78) U/L Urine Color Urine Appearance Urine pH (5.0-8.0) Ur Specific [place] (1.005-1.025) Urine Protein (NEG-TRACE) MG/DL Urine Glucose (UA) (NEG) MG/DL Urine Ketones (NEG) MG/DL Urine Blood (NEG) Urine Nitrite (NEG) Ur Leukocyte Esterase (NEG) Urine Opiates Screen Not Detected (Not Detect) Urine Fentanyl Screen Not Detected (Not Detect) Ur Barbiturates Screen Not Detected (Not Detect) Ur Phencyclidine Scrn Not Detected (Not Detect) Ur Amphetamines Screen Not Detected (Not Detect) U Benzodiazepines Scrn Not Detected (Not Detect) Urine Cocaine Screen POSITIVE H (Not Detect) U Marijuana (THC) Screen POSITIVE H (Not Detect) Ethyl Alcohol mg/dL COVID-19 (LINDA) (Negative) COVID-19 Clin Com ECG Data Attestation: I personally reviewed and interpreted this ECG as follows: ECG interpretation date: 04/21/21 ECG interpretation time: 13:02 Interpretation: Rate: 104 Rhythm: sinus tachycardia [place]: normal LVH Normal P waves. Normal ALEX. Normal QRS complex. ST T wave : nonspecific, no TE qTC: normal prior studies: no acute ischemia, artifact noted The study has been interpreted contemporaneously by me. . NIH Stroke Scale Internal: Initial- Upon Arrival Level of Consciousness: Alert Level of Consciousness Questions: Answers both questions correctly Level of Consciousness Commands: Performs both tasks correctly Best Gaze: Normal Visual: No visual loss Facial Palsy: Normal Motor Arm (Right): No drift Motor Arm (Left): No drift Motor Leg (Right): No drift Motor Leg (Left): No drift Limb Ataxia: Absent Sensory: Normal Best Language: No aphasia Dysarthia: Normal Extinction and Inattention: No abnormality Score: 0 Discharge Plan Discharge Clinical Impression: Cocaine use, Hypertension, uncontrolled Patient Disposition: Home, Self-Care Instructions: Cocaine Abuse (ED), Chronic Hypertension (ED) Additional Instructions: return to ED for any worsening symptoms or concerns take your medications follow up with your doctor please do not use cocaine you should at least be taking your carvedilol hydrochlorothiazide and amlodipine please call your doctor Prescriptions: No Action Flovent HFA 110 mcg/actuation HFA aerosol inhaler 1 puff inhalation BID 30 Days Qty: 12 RF: 5 albuterol sulfate 90 mcg/actuation HFA aerosol inhaler 2 puff inhalation QID PRN (Reason: shortness of breath or wheezing) Qty: 18 RF: 5 ibuprofen 800 mg tablet 800 mg PO TID PRN (Reason: for pain) Qty: 90 RF: 5 omeprazole 40 mg capsule,delayed release(DR/EC) 40 mg PO DAILY PRN (Reason: Acid Reflux) RF: 0 fluticasone propionate 50 mcg/actuation spray,suspension 2 spray intranasal DAILY PRN (Reason: allergy symptoms) RF: 0 loratadine 10 mg capsule 10 mg PO DAILY PRN (Reason: allergy symptoms) RF: 0 (DME) blood pressure monitor Kit See Rx Instructions .Route Qty: 1 RF: 0 carvedilol [Coreg] 25 mg tablet 25 mg PO BID Qty: 60 RF: 2 hydralazine 50 mg tablet 50 mg PO BID Qty: 60 RF: 2 Referrals: Tanvir Nguyen MD [Primary Care Provider] - 1 day
[2021-04-21 11:58] LABS: Glucose, Whole Blood 81 mg/dL (60-115)
[2021-04-21 12:12] LABS: MANUAL DIFF FLAG NO
[2021-04-21 12:14] LABS: Basophils Absolute Auto 0.1 X10*3/uL (0.0-0.2); Basophils Percent Auto 0.6 % (0-2); Eosinophils Absolute Auto 0.2 X10*3/uL (0.0-0.4); Eosinophils Percent Auto 1.8 % (0-4); Hematocrit 42.8 % (37.0-47.0); Hemoglobin 14.8 g/dl (12.0-16.0); Imm Gran Abs Auto 0.02 X10*3/uL (0.00-0.03); Imm Gran Pct Auto 0.2 % (0.0-0.4); Lymphocytes Absolute Auto 2.4 X10*3/uL (1.2-4.9); Lymphocytes Percent Auto 29.5 % (20-40); Mean Corpuscular HGB Conc 34.6 g/dl (31.0-35.0); Mean Corpuscular Hemoglobin 30.5 pg (27.0-33.0); Mean Corpuscular Volume 88.1 fL (80.0-98.0); Mean Platelet Volume 9.9 fL (9.4-12.3); Monocytes Absolute Auto 0.5 X10*3/uL (0.1-1.2); Monocytes Percent Auto 6.6 % (2-11); Neutrophils Percent Auto 61.3 % (45-73); Platelet Count 424 X10*3/uL (160-400); Red Blood Count 4.86 X10*6/uL (4.20-5.50); Red Cell Distribution Width 13.2 % (11.0-16.0); White Blood Count 8.2 X10*3/uL (4.8-10.8)
[2021-04-21] MEDS: hydrALAZINE HCl 20 MG/ML VIAL IVPUSH (12:15)
--- NOTE | 2021-04-21 12:18 | PC.NURSE ---
at arrival to room pt is listless, boyfriend answering questions. able to follow commands but slow response times. no unilat neuro deficits. listing left in wc. 2 person assist to bed and unable to balance or bear weight. nodds yes when asked about headache. pupils 5mm and reactive. equal. stopped all 5 htn meds 5 days ago. last used etoh and cocaine 2 days ago.
[2021-04-21 12:22] LABS: Prothrombin Time 11.4 SEC (9.9-13.0)
--- NOTE | 2021-04-21 12:22 | PC.NURSE ---
pt starts to perk up during administration of hydralazine. headache is improved as well.
[2021-04-21 12:25] LABS: Partial Thromboplastin Time 33.3 SEC (24.1-38.0)
[2021-04-21 12:34] LABS: Ethanol < 10 mg/dL
[2021-04-21 12:40] LABS: Alanine Aminotransferase 13 U/L (0-31); Albumin Level 4.7 g/dL (3.5-5.0); Alkaline Phosphatase 114 U/L (39-117); Anion Gap 13 (12-20); Aspartate Amino Transferase 19 U/L (5-31); Bilirubin Direct 0.3 mg/dL (0.0-0.5); Bilirubin Total 0.8 mg/dL (0.0-1.0); Blood Urea Nitrogen 13 mg/dL (9-16); Calcium 9.6 mg/dL (8.4-10.2); Carbon Dioxide 29 mmol/L (22-29); Chloride 105 mmol/L (96-108); Creatinine Clr Calc Pharmacy 61.1; Estimated Glomerular Filt Rate > 60; Glucose Random 91 mg/dL (60-115); Lipase 21 U/L (8-78); Potassium 3.3 mmol/L (3.3-5.1); Sodium 144 mmol/L (135-145)
[2021-04-21 12:42] LABS: Troponin-I High Sensitivity 55.8 ng/L (<3.5-17.0)
[2021-04-21 12:43] LABS: COVID-19 Test Negative (Negative); IDNOW Serial# 9DD0AD1C
--- NOTE | 2021-04-21 12:52 | PHA.MEDREC ---
Pharmacy Consult ? Medication Reconciliation Pharmacy has completed the medication reconciliation. Spoke to patients significant other, he says patient doesnt take blood pressure medications consistently due to side effects. Patient should be taking hydrochlorothiazine 25 mg, amlodipine 10 mg and losartan 100 mg. I called [facility] and they havent filled those medications and have no record, therefore I took those off the patients med list. Juliana AburtoD BCPS
[2021-04-21] MEDS: amLODIPine Besylate 10 MG TABLET PO (13:03)
[2021-04-21] MEDS: 0.9 % Sodium Chloride 1,000 ML 999 ML IV (13:16)
--- NOTE | 2021-04-21 13:50 | PC.NURSE ---
remains alert. improvement from arrival.
--- NOTE | 2021-04-21 14:26 | PC.NURSE ---
ambulatory with one assist to br. slightly unsteady on feet. reporting increased dizziness afterwards. wc used. headache resurfacing. bp increasing md aware.
[2021-04-21 15:07] LABS: Appearance Urine HAZY; Color Urine YELLOW; Glucose Urine UA NEG (NEG); Leukocyte Esterase Urine NEG (NEG); Nitrite Urine NEG (NEG); PH 6.5 (5.0-8.0); Specific Gravity - Urine 1.015 (1.005-1.025); Urine Blood NEG (NEG); Urine Ketones NEG (NEG); Urine Protein NEG (NEG-TRACE)
[2021-04-21 15:25] LABS: Amphetamine Screen Urine Not Detected (Not Detect); Barbiturates, Urine Not Detected (Not Detect); Benzodiazepines Screen Urine Not Detected (Not Detect); Cannabinoid Screen Urine POSITIVE (Not Detect); Cocaine Screen Urine POSITIVE (Not Detect); Fentanyl, urine Not Detected (Not Detect); Opiate Screen Urine Not Detected (Not Detect); Phencyclidine Screen Urine Not Detected (Not Detect)
[2021-04-21 15:46] LABS: Troponin-I High Sensitivity 66.8 ng/L (<3.5-17.0)
--- NOTE | 2021-04-21 15:57 | PC.NURSE ---
resting quietly. skin pwd. states headache is slight. nsr on monitor. awaits admission
== END 2021-04-21 16:54 | disposition home or self-care (01) ==
PROVIDERS: Emergency Provider Emergency Medicine; PCP Internal Medicine
DX: F14.90 Cocaine use, unspecified, uncomplicated (principal); I10 Essential (primary) hypertension; Z20.822 Contact with and (suspected) exposure to COVID-19; R51.9 Headache, unspecified; R53.1 Weakness; F12.90 Cannabis use, unspecified, uncomplicated; F17.200 Nicotine dependence, unspecified, uncomplicated
CPT/HCPCS: 36415; 70450; 71045; 80048; 80076; 80307; 81003; 82077; 82947; 83690; 83735; 84484; 85025; 85610; 85730; 87635; 93005; 96361; 96374; 99285

== ENCOUNTER → 2021-05-26 14:50 | Outpatient (REF) | payer OTHER, SELFPAY | LOC: HO.SL 14:50 | PROVIDERS: PCP Internal Medicine; Visit Provider Internal Medicine Cardiovascular Disease | DX: G47.10 Hypersomnia, unspecified (principal); I10 Essential (primary) hypertension | CPT/HCPCS: 95806 ==

== ENCOUNTER → 2022-03-06 12:58 | Outpatient (REF) | payer OTHER, SELFPAY ==
--- NOTE | 2022-03-06 13:27 | CA_ITS ---
Transthoracic Echocardiogram Patient (Last, First, Middle): Kourtney Hubbard I Gender: Female Date of : 1970 Age: 51 Procedure Date: 03/06/2022 Procedure Type: Transthoracic Echocardiogram Location: OP Height: 154.94 cm Weight: 55.79 kg BSA: 1.54 m2 Heart Rate: bpm BP: 122 / 60 mmHg [place] Tile Shader: Referring MD: Tanvir Nguyen MD Symptoms: R94.31 ABNORMAL EKG, I10 HTN Study Quality: Good ECG Rhythm: Sinus Conclusions: - The left ventricular systolic function is moderately decreased. The visually estimated ejection fraction is between 30-35%. - The basal inferior segment is akinetic. - No obvious valvular pathology seen on this study. Findings Left Ventricle Normal left ventricular cavity size. There is mildly increased left ventricular wall thickness. The left ventricular systolic function is moderately decreased. The visually estimated ejection fraction is between 30 35%. The calculated ejection fraction is 30% by biplane method. There is moderate global hypokinesis. E/E prime ratio is >15, consistent with elevated filling pressures. Evidence suggests grade I (mild) diastolic dysfunction. LV peak GLS -11%. Wall Motion Rest Echo Findings The basal inferior segment is akinetic. Right Ventricle Normal right ventricular cavity size and systolic function. Atria Both atria are normal in size. Aortic Valve There is a normal trileaflet aortic valve. There is no aortic valve stenosis. There is no aortic valve regurgitation. Mitral Valve There is mild anterior mitral leaflet thickening. There is trace mitral valve regurgitation. There is no mitral valve stenosis. Pulmonic Valve The pulmonic valve is likely normal. Tricuspid Valve Normal tricuspid valve structure. There is trace tricuspid valve regurgitation. There is no evidence of pulmonary hypertension. Great Vessels The aortic annulus, sinuses of valsalva, and asc aorta are normal in size. Venous The inferior vena cava is normal in size and collapses less than 50% with inspiration. Pericardium/Pleural There is a trivial pericardial effusion. Prior Study Comparison Changes noted compared to prior study dated: 11/26/2018. Decrease in LVEF. Recommendations, Care & Conclusions No obvious valvular pathology seen on this study. Measurements 2D Linear Measurements IVSd: 1.21 0.6-0.9/0.6-1.0 cm LVIDd: 4.40 3.9-5.3/4.2-5.9 cm LVIDd Index: 2.86 2.4-3.2/2.2-3.1 cm/m2 LVIDs: 3.52 2.0-3.6 cm LVPWd: 1.20 0.7-1.1 cm Ao Root: 2.50 2.1-3.5 cm LA Diam: 3.40 2.7-3.8/3.0-4.0 cm LAIDs Index: 2.21 1.5-2.3 cm/m2 LV Mass: 239.86 67-162/88-224 g LV Mass Index: 155.76 43-95/49-115 g/m2 LVOT Diam: 1.90 3.0+(-)1.3 cm 2D Systolic Function EF 4C: 35.70 >55% EF 2C: 27.70 >55% EF BiP: 30.20 >55% Mitral Valve MV Pk E: 0.67 MV PK A: 1.16 MV Decel Time: 215.00 E/A: 0.60 E'Lateral: 6.31 E'Medial: 3.48 E/E' Med: 19.20 E/E' Lat: 10.60 PHT: 63.00 MVA PHT: 3.49 Decel [place]: 3.10 Aortic Valve AoV Pk Shawn: 1.41 AoV Mn Shawn: 0.94 AoV VTI: 0.29 AoV Pk Grad: 8.00 Aov Mn Grad: 4.00 WESLY Cont.VTI: 1.56 LVOT LVOT Pk Shawn: 0.78 LVOT Mn Shawn: 0.54 LVOT VTI: 0.16 LVOT Pk Grad: 2.00 LVOT Mn Grad: 1.00 LVOT Diam: 1.90 LVOT Area: 2.84 Diastolic Function MV Pk E: 0.67 MV Pk A: 1.16 E/A: 0.60 E'Medial: 3.48 E/E' Med: 19.20 E' Laterial: 6.31 E/E' Lat: 10.60 Right Ventricle TAPSE (mm): 23.00 TVS' Shawn: 12.00 Tricuspid Valve TR Pk Shawn: 2.05 TR Pk Grad: 17.00 RA Press: 8.00 RVSP: 25.00 Great Vessels Aorta Ao Root-2D: 2.50 2.0-3.7 cm Ao Asc: 2.80 2.1-3.4 cm Pulmonary Valve PV Pk Shawn: 0.90 Peak PV Grad: 3.00 Updated in Other Vendor System with Status of Final Malcolm Schultz MD electronically signed on 03/06/2022 4:17:51 PM with status of Final
[2022-03-06 14:37] LABS: MANUAL DIFF FLAG NO
[2022-03-06 16:01] LABS: Basophils Absolute Auto 0.1 X10*3/uL (0.0-0.2); Basophils Percent Auto 0.8 % (0-2); Eosinophils Absolute Auto 0.1 X10*3/uL (0.0-0.4); Eosinophils Percent Auto 1.4 % (0-4); Hematocrit 41.5 % (37.0-47.0); Hemoglobin 13.9 g/dl (12.0-16.0); Imm Gran Abs Auto 0.02 X10*3/uL (0.00-0.03); Imm Gran Pct Auto 0.2 % (0.0-0.4); Lymphocytes Absolute Auto 2.5 X10*3/uL (1.2-4.9); Lymphocytes Percent Auto 27.6 % (20-40); Mean Corpuscular HGB Conc 33.5 g/dl (31.0-35.0); Mean Corpuscular Volume 89.6 fL (80.0-98.0); Mean Platelet Volume 10.6 fL (9.4-12.3); Monocytes Absolute Auto 0.5 X10*3/uL (0.1-1.2); Monocytes Percent Auto 5.9 % (2-11); Neutrophils Absolute Auto 5.8 x10*3/uL (2.0-8.3); Neutrophils Percent Auto 64.1 % (45-73); Platelet Count 403 X10*3/uL (160-400); Red Blood Count 4.63 X10*6/uL (4.20-5.50); Red Cell Distribution Width 12.6 % (11.0-16.0); White Blood Count 9.1 X10*3/uL (4.8-10.8)
[2022-03-06 16:22] LABS: Alanine Aminotransferase 18 U/L (0-31); Albumin Level 4.5 g/dL (3.5-5.0); Alkaline Phosphatase 122 U/L (39-117); Anion Gap 14 (12-20); Aspartate Amino Transferase 20 U/L (5-31); Bilirubin Total 0.5 mg/dL (0.0-1.0); Blood Urea Nitrogen 22 mg/dL (9-16); Calcium 9.5 mg/dL (8.4-10.2); Carbon Dioxide 32 mmol/L (22-29); Chloride 103 mmol/L (96-108); Cholesterol 171 mg/dL; Estimated Glomerular Filt Rate > 60; Glucose Fasting 81 mg/dL (60-99); HDL Cholesterol 65 mg/dL; LDL Cholesterol Calculated 93 mg/dl; Potassium 4.1 mmol/L (3.3-5.1); Sodium 145 mmol/L (135-145); Total Protein 7.6 g/dL (6.5-8.0); Triglycerides 68 mg/dL
[2022-03-06 16:42] LABS: TSH reflex Free T4 1.68 uIU/mL (0.32-4.0)
[2022-03-06 16:48] LABS: Troponin-I High Sensitivity 117.3 ng/L (<3.5-17.0)
[2022-03-06 16:57] LABS: Erythrocyte Sedimentation Rate 13 MM/HR (0-20)
== END ==
LOC: HO.CARD 12:58
PROVIDERS: PCP Internal Medicine; Visit Provider Internal Medicine
DX: R94.31 Abnormal electrocardiogram [ECG] [EKG] (principal); I10 Essential (primary) hypertension; R77.8 Other specified abnormalities of plasma proteins; E78.00 Pure hypercholesterolemia, unspecified; M79.7 Fibromyalgia
CPT/HCPCS: 36415; 80053; 80061; 84443; 84484; 85025; 85652; 93306; 93356

== ENCOUNTER → 2022-04-10 09:44 | Outpatient (REF) | payer OTHER, SELFPAY | LOC: HO.CARD 09:44 | PROVIDERS: PCP Internal Medicine; Visit Provider Internal Medicine Cardiovascular Disease | DX: R94.31 Abnormal electrocardiogram [ECG] [EKG] (principal); R93.1 Abnormal findings on diagnostic imaging of heart and coronary circulation; R77.8 Other specified abnormalities of plasma proteins | CPT/HCPCS: J0280; J0461; J2785 ==

== ENCOUNTER 2022-04-10 11:21 | Emergency (ER) | payer OTHER, SELFPAY ==
[2022-04-10 11:32] VITALS: BP 90/47; PULSE 71; RESP 16; O2SAT 99; BMI 24.1
--- NOTE | 2022-04-10 13:16 | ED_ITS ---
HPI - Syncope General Chief Complaint: Syncope Stated Complaint: Near Syncope Time Seen by Provider: 04/10/22 12:57 Source: patient, family, RN notes reviewed and old records reviewed Mode of arrival: other (Stretcher) History of Present Illness HPI narrative: 51-year-old female who had appointment for a stress test this morning. Apparently when she showed up there, her blood pressure was elevated, although it is not known how high. The patient was given carvedilol and hydrochlorothiazide and became near syncopal, with bradycardia and mild hypotension. The patient denies any symptoms at this time. States she felt ?sick? earlier, but feels better now. The patient states she did not have any chest pain, shortness of breath, fevers or chills. MD complaint: felt faint and almost passed out Prodromal symptoms: none Witnessed: Yes - by Other Context: at rest Injuries sustained associated with event: none Current symptoms: back to baseline Treatments prior to arrival: IV fluids Related Data Home Medications Medication Instructions Recorded Confirmed fluticasone propionate 50 2 spray intranasal DAILY PRN 02/17/21 02/18/22 mcg/actuation nasal allergy symptoms spray,suspension loratadine 10 mg capsule 10 mg PO DAILY PRN allergy symptoms 02/17/21 02/18/22 Previous Rx's Medication Instructions Recorded hydralazine 50 mg tablet 50 mg PO BID #60 tabs 05/08/21 carvedilol 25 mg tablet (Coreg) 25 mg PO BID #60 tabs 07/06/21 blood pressure monitor #1 ea 07/12/21 omeprazole 40 mg capsule,delayed 40 mg PO DAILY PRN Acid Reflux 90 11/14/21 release days #90 caps cyanocobalamin (vitamin B-12) 1,000 mcg PO DAILY 90 days #90 tabs 12/28/21 1,000 mcg tablet ibuprofen 800 mg tablet 800 mg PO TID PRN for pain #90 tabs 01/26/22 DEPENDS Adult Pull ups (MEDIUM) #100 ea 02/17/22 sucralfate 100 mg/mL oral 10 ml PO QIDACHS 30 days #1,200 mL 02/22/22 suspension (Carafate) albuterol sulfate 90 mcg/actuation 2 puff PO QID PRN for wheezing 03/07/22 aerosol inhaler (ProAir HFA) #8.5 ea fluticasone propionate 110 1 puff inhalation BID 30 days #12 03/07/22 mcg/actuation HFA aerosol inhaler grams (Flovent HFA) Allergies Allergy/AdvReac Type Severity Reaction Status Date / Time No Known Allergies Allergy Verified 02/18/22 22:13 [No Known Allergies*] Review of Systems Review of Systems: Constitutional: Denies chills and Denies fever(s) Eyes: Denies blurry vision and Denies diplopia ENT: Denies dizziness, Denies nasal congestion and Denies sore throat Cardiovascular: Denies chest pain, Denies rapid heart rate Respiratory: Denies cough and Denies wheezing Gastrointestinal: Denies diarrhea, Denies nausea and Denies vomiting Genitourinary: No dysuria, frequency or urgency. Musculoskeletal: Denies back pain and Denies myalgias Neuro: Denies dizziness and Denies headache Allergic/Immunologic: Denies wheezing, rash PMFSH Past Medical History Medical History Allergic rhinitis Anxiety Asthma Benign essential hypertension Hemorrhagic gastritis Insomnia Lumbar spondylosis Overweight (BMI 25.0-29.9) Smoker Surgical History History of sleeve gastrectomy Family History Family History Father No problems noted. Mother No problems noted. Social History Social History Housing: Apartment Alcohol intake: current Alcohol intake frequency: holidays/special occasions only Patient Tobacco Use Status: Current everyday Tobacco user Cigarettes Per Day: 6 Second Hand Smoke Exposure: Yes Substance Use Type: Crack/Cocaine Advance Directives: No Advance Directives Information Provided: No service: No Current occupational status: disabled Cognitive needs: No Hearing needs: No Vision needs: No Physical Exam Vital Signs: Vital Signs: Last Vital Signs Pulse 71 04/10/22 11:32 Resp 16 04/10/22 11:32 BP 90/47 L 04/10/22 11:32 Pulse Ox 99 04/10/22 11:32 O2 Del Method 04/10/22 11:32 BMI result Body Mass Index 24.1 Vital signs reviewed, mild hypotension Const: General: cooperative, healthy appearing, comfortable and no acute distress Orientation/consciousness: patient oriented x3 HEENT: Head: Yes normal to inspection, Yes normocephalic and Yes atraumatic Ears: external ears normal General nose exam: Normal external nose present Face and sinus: Yes normal facial exam Eyes: Conjunctivae: conjunctivae normal Sclerae: sclerae normal Pupils: Equal, round and reactive pupils present EOM: EOMs intact bilaterally Neck: Neck: Yes normal visual inspection and Yes full ROM Chest: Chest palpation & inspection: normal inspection of the chest Resp: Effort & Inspection: normal respiratory effort and no cough Auscultation: clear to auscultation bilaterally Cardio: Rate: regular rate Rhythm: regular rhythm Heart sounds: no murmurs GI: Inspection: Yes normal to inspection Back/Spine/Pelvis: Cervical Spine: normal cervical lordosis and cervical ROM normal Skin: General skin exam: no rashes or lesions noted, no jaundice and no mottling Neuro: General: patient oriented x3 Cranial nerves: Yes CN's II-XII intact bilaterally and Yes Equal, round and reactive pupils present Gait exam (Neuro): Normal gait present Medical Decision Making Medical Decision Making MDM Narrative: 51-year-old female who presented from stress testing with a near syncopal episode. The patient was noted to be hypertensive, although exact level of hypertension is not noted. The patient received p.o. medications and had an episode of bradycardia with hypotension. Upon arrival here to the emergency room, the patient is awake and alert, has no complaints at present, and feels back to normal except states her mouth feels slightly dry. Laboratory studies were obtained which are unremarkable. EKG as documented below. 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 Differential Diagnoses: Differential diagnosis (Syncope, near syncope, cardiac arrhythmia) Differential Diagnosis: The differential diagnosis associated with the patient?s presentation includes: Independent interpretation of EKG, rhythm strip, radiology study: Independent interp EKG,rhythm strip, radiology study I performed an independent interpretation of the: EKG My interpretation is normal sinus rhythm at 66, normal intervals, borderline QTC, inverted T-waves V3 through V6 as well as nonspecific T-wave changes in the lateral leads 1 and aVL, however no acute changes compared with previous EKG Independent historian (e.g., spouse, EMS, friend): Independent historian (e.g., spouse, EMS, friend) Clinical information obtained from an independent historian. History obtained from or confirmed by: Spouse Non-ED record review: Review of External (Non-ED) Record External record reviewed:: Office record and Outpatient record Tests considered but not performed: Tests Considered But Not Performed The following testing was considered but ultimately not selected after discussion with patient/family. Troponin, however, no history of chest pain or acute coronary syndrome type symptoms. Discharge Plan Discharge Clinical Impression: Near syncope, Abnormal ECG Adverse effects of medication Qualifiers: Encounter type: initial encounter Qualified Code(s): T50.905A - Adverse effect of unspecified drugs, medicaments and biological substances, initial encounter Patient Disposition: Home, Self-Care Instructions: Near Syncope (ED) Prescriptions: No Action hydralazine 50 mg tablet 50 mg PO BID Qty: 60 2RF carvedilol [Coreg] 25 mg tablet 25 mg PO BID Qty: 60 2RF Rx Instructions: must administer with a meal/food omeprazole 40 mg capsule,delayed release(DR/EC) 40 mg PO DAILY PRN (Reason: Acid Reflux) 90 Days Qty: 90 1RF cyanocobalamin (vitamin B-12) 1,000 mcg tablet 1,000 mcg PO DAILY 90 Days Qty: 90 3RF ibuprofen 800 mg tablet 800 mg PO TID PRN (Reason: for pain) Qty: 90 5RF sucralfate [Carafate] 100 mg/mL suspension 10 ml PO QIDACHS 30 Days Qty: 1200 3RF Flovent HFA 110 mcg/actuation HFA aerosol inhaler 1 puff inhalation BID 30 Days Qty: 12 5RF albuterol sulfate [ProAir HFA] 90 mcg/actuation HFA aerosol inhaler 2 puff PO QID PRN (Reason: for wheezing) Qty: 8.5 0RF fluticasone propionate 50 mcg/actuation spray,suspension 2 spray intranasal DAILY PRN (Reason: allergy symptoms) Rx Instructions: administer into each nostril loratadine 10 mg capsule 10 mg PO DAILY PRN (Reason: allergy symptoms) (DME) blood pressure monitor Kit See Rx Instructions .Route Qty: 1 0RF Rx Instructions: As directed - use to monitor BP daily as instructed (DME) DEPENDS Adult Pull ups (MEDIUM) medium See Rx Instructions .Route .MEDSUPPLY Qty: 100 12RF Rx Instructions: As directed
--- NOTE | 2022-04-10 13:25 | ECG_ITS ---
Test Reason : SYNCOPE Blood Pressure : / mmHG Vent. Rate : 066 BPM Atrial Rate : 066 BPM P-R Int : 140 ms QRS Dur : 088 ms QT Int : 538 ms P-R-T Axes : 055 068 060 degrees QTc Int : 564 ms Normal sinus rhythm Minimal voltage criteria for LVH, may be normal variant ( Sokolow-Issa ) T wave abnormality, consider anterolateral ischemia Prolonged QT Abnormal ECG When compared with ECG of 21-APR-2021 12:54, Vent. rate has decreased BY 38 BPM T wave inversion now evident in Anterior leads Referred By: Cristi Olivas Electronically Signed By:KAYLYN TREVINO MD
[2022-04-10 14:03] LABS: MANUAL DIFF FLAG NO
[2022-04-10 14:16] LABS: Basophils Percent Auto 0.4 % (0-2); Eosinophils Absolute Auto 0.1 X10*3/uL (0.0-0.4); Eosinophils Percent Auto 0.6 % (0-4); Hemoglobin 13.1 g/dl (12.0-16.0); Imm Gran Abs Auto 0.02 X10*3/uL (0.00-0.03); Imm Gran Pct Auto 0.2 % (0.0-0.4); Lymphocytes Absolute Auto 1.7 X10*3/uL (1.2-4.9); Lymphocytes Percent Auto 17.4 % (20-40); Mean Corpuscular HGB Conc 34.5 g/dl (31.0-35.0); Mean Corpuscular Hemoglobin 29.9 pg (27.0-33.0); Mean Corpuscular Volume 86.8 fL (80.0-98.0); Mean Platelet Volume 10.2 fL (9.4-12.3); Monocytes Absolute Auto 0.3 X10*3/uL (0.1-1.2); Monocytes Percent Auto 3.1 % (2-11); Neutrophils Absolute Auto 7.6 x10*3/uL (2.0-8.3); Neutrophils Percent Auto 78.3 % (45-73); Platelet Count 396 X10*3/uL (160-400); Red Blood Count 4.38 X10*6/uL (4.20-5.50); Red Cell Distribution Width 12.6 % (11.0-16.0); White Blood Count 9.8 X10*3/uL (4.8-10.8)
[2022-04-10 14:20] LABS: Anion Gap 13 (12-20); Blood Urea Nitrogen 10 mg/dL (9-16); Calcium 8.9 mg/dL (8.4-10.2); Carbon Dioxide 27 mmol/L (22-29); Chloride 106 mmol/L (96-108); Creatinine Clr Calc Pharmacy 64.2; Estimated Glomerular Filt Rate > 60; Glucose Random 117 mg/dL (60-115); Potassium 3.7 mmol/L (3.3-5.1); Sodium 142 mmol/L (135-145)
== END 2022-04-10 15:21 | disposition home or self-care (01) ==
PROVIDERS: Emergency Provider Emergency Medicine; PCP Internal Medicine
DX: R55 Syncope and collapse (principal); F17.210 Nicotine dependence, cigarettes, uncomplicated; Z71.6 Tobacco abuse counseling; Z79.899 Other long term (current) drug therapy
CPT/HCPCS: 36415; 80048; 85025; 93005; 99283; J0461

== ENCOUNTER → 2022-06-13 14:51 | Outpatient (BNVA) | payer OTHER, SELFPAY | PROVIDERS: PCP Internal Medicine; Referring Provider Internal Medicine; Visit Provider Internal Medicine | DX: I10 Essential (primary) hypertension (principal); I42.9 Cardiomyopathy, unspecified; R94.31 Abnormal electrocardiogram [ECG] [EKG]; E66.3 Overweight; F17.210 Nicotine dependence, cigarettes, uncomplicated; Z68.23 Body mass index [BMI] 23.0-23.9, adult; Z71.89 Other specified counseling; Z90.3 Acquired absence of stomach [part of] | CPT/HCPCS: 99202 ==

== ENCOUNTER 2022-09-13 13:13 | Outpatient (AMB) | payer OTHER, SELFPAY ==
[2022-09-13 13:15] VITALS: O2SAT 91
--- NOTE | 2022-09-13 13:15 | MHC.PC.OV ---
Vital Signs 09/13/22 13:15 Pulse Oximetry (%) 91 L Oxygen Delivery Method Room Air Intake Visit Reasons: FOLLOW UP Intake Note: Patient is here for a follow up. Blockmason Required: No Accompanied by: Self / Same As Patient Allergies No Known Allergies [No Known Allergies*] Allergy (Verified 01/19/24 19:54) Medication List - Last Reconciled 01/19/24 by Tanvir Nguyen MD aspirin 81 mg PO DAILY 30 days atorvastatin 40 mg PO BEDTIME 90 days blood pressure monitor As directed - use to monitor BP daily as instructed carvedilol (Coreg) 25 mg PO BID 90 days cholecalciferol (vitamin D3) 50 mcg PO DAILY 90 days [DEPENDS Adult Pull ups (MEDIUM) As directed] fluticasone furoate-vilanterol 100-25 mcg/dose (Breo Ellipta) 1 inh inhalation DAILY isosorbide mononitrate ER 60 mg PO DAILY 90 days loratadine 10 mg PO DAILY losartan 100 mg PO DAILY 90 days omeprazole 40 mg PO DAILY PRN 90 days Tobacco use date assessed: 09/13/22 HPI FOLLOW UP HPI Details Patient comes in today for her follow up visit - was last seen via telehealth back on 02/17/2022 Patient states that she currently feels okay She denies any headaches or dizziness Denies any chest pains, no increased SOB No nausea/vomiting, no abdominal pain No change in bowel habits noted States that she is taking her meds as prescribed but she is unable to accurately list her meds, especially the ones she is supposedly taking for her blood pressure and they appear to have not been refilled for some time now She finally had her echocardiogram done back at the end of February 2022 and would like to know how her test came out She was seen by cardiology a few months ago but they could not figure out what medications patient was on at the time as she herself could not really tell them the name of her current meds or which ones she was taking then Was advised that they need to figure out first what she is on so they can figure out some kind of evaluation and management plan going forward She also has no follow up labs done recently [facility] Medical History Hypertensive emergency Elevated troponin Vitamin D deficiency Essential hypertension Overweight (BMI 25.0-29.9) Smoker Anxiety Insomnia Lumbar spondylosis Allergic rhinitis Hemorrhagic gastritis Asthma Surgical History History of sleeve gastrectomy Family History Father No problems noted. Mother No problems noted. Social History Household Members: None Housing: Apartment Do you presently have visiting nurse or other home services: Yes Alcohol intake: current Alcohol intake frequency: a few times a week Patient Tobacco Use Status: Current someday Tobacco user Tobacco use type: Cigarette Cigarettes Per Day: 4 e-Cigarette/Vaping Use: Never Used Second Hand Smoke Exposure: Yes Substance Use Type: Crack/Cocaine service: No Current occupational status: disabled Cognitive needs: No Hearing needs: No Vision needs: No Questionnaire PHQ-9 Over the last 2 weeks, how often have you been bothered by any of the following problems? 1. Little interest or pleasure in doing things: nearly every day 2. Feeling down, depressed, or hopeless: nearly every day 3. Trouble falling or staying asleep, or sleeping too much: nearly every day 4. Feeling tired or having little energy: not at all 5. Poor appetite or overeating: not at all 6. Feeling bad about yourself - or that you are a failure or have let yourself or your family down: not at all 7. Trouble concentrating on things, such as reading the newspaper or watching television: not at all 8. Moving or speaking so slowly that other people could have noticed. Or the opposite - being so fidgety or restless that you have been moving around a lot more than usual: not at all 9. Thoughts that you would be better off or of hurting yourself in some way: not at all Total score: 9 Depression Screening Interpretation: Positive Depression Screening Follow-up: Existing condition and Declines treatment 49697 - PHQ-9 Billing: Yes Source: Developed by Drs. Cristi Arceo, Radha Egan, Jewel Nash and colleagues, with an educational jose from [employer]. Thrive Questionnaire Date Thrive assessed: 09/13/22 I am a: Patient What is your living situation today?: I have a steady place to live Within the past 12 months, did the food you bought not last and you didn't have the money to get more?: Never true Within the past 12 months, did you worry whether your food would run out before you got money to buy more?: Never true Do you have trouble paying for medicines?: No Do you have trouble getting transportation to medical appointments?: No Do you have trouble paying your heating and electricity bill?: No Do you have trouble taking care of your child, family member or friend?: No Do you have trouble with day-to-day activities such as bathing, preparing meals, shopping, managing finances, etc.?: No Are you currently unemployed and looking for a job?: No Are you interested in more education?: No Please select the resources that you would like help with: None Currently or been in a relationship where the following occur: no concerns reported AUDIT C Alcohol Use Questionnaire (AUDIT-C) 1. How often do you have a drink containing alcohol?: Monthly or less 2. How many drinks containing alcohol do you have on a typical day when you are drinking?: 1 or 2 3. How often do you have six or more drinks on one occasion?: Never Total Score: 1 Score Reviewed/Action Taken: Yes PORFIRIO-7 AMB Questionnaire PORFIRIO-7 Date PORFIRIO - 7 assessed: 09/13/22 Feeling nervous, anxious, or on edge: 3 = Nearly every day Not being able to stop or control worryin = Nearly every day Worrying too much about different things: 3 = Nearly every day Trouble relaxin = Nearly every day Being so restless that it is hard to sit still: 0 = Not at all Becoming easily annoyed or irritable: 0 = Not at all Feeling afraid as if something awful might happen: 0 = Not at all Total PORFIRIO-7 score (0-4 normal; 5-9 mild; 10-14 moderate; 15-21 severe): 12 Source: Developed by Drs. Cristi Arceo, Radha Egan, Jewel Nash and colleagues, with an educational jose from [employer]. Review of Systems Const Denies chills, Denies fatigue, Denies fever(s) and Denies headache(s) ENT Denies dysphagia, Denies dizziness, Denies otalgia, Denies headache(s), Denies nasal congestion, Denies neck pain, Denies odynophagia and Denies sore throat Card Denies chest pain, Denies palpitations and Denies dyspnea Resp Denies chest congestion, Denies cough and Denies dyspnea GI Denies abdominal pain, Denies constipation, Denies dysphagia, Denies heartburn, Denies diarrhea, Denies nausea, Denies odynophagia and Denies vomiting Denies difficulty voiding, Denies nocturia, Denies dysuria, Reports urinary incontinence (at times) and Denies urinary urgency Musc Reports back pain (over the lower back; increased pain and spasms over both sides of spine) and Denies neck pain Skin/Breast Denies rash Neuro Denies dizziness and Denies headache(s) Psych Reports anxiety Endo Denies fatigue and Denies palpitations Physical exam (Primary Care) Vital Signs: Last Vital Signs Pulse Ox 91 L 09/13/22 13:15 Oxygen Delivery Method Room Air 09/13/22 13:15 Tobacco/Smoking Status: Tobacco use Status Tobacco use date assessed 09/13/22 09/13/22 13:21 Patient Tobacco Use Status Current everyday Tobacco 09/13/22 13:21 Tobacco use type Cigarette 09/13/22 13:21 e-Cigarette/Vaping Use Never Used 09/13/22 13:21 PHQ-9: PHQ-9 Score PHQ-9: Total score 9 09/13/22 14:06 Depression Screening Interpretation: Positive Depression Screening Follow-up: Existing condition and Declines treatment Thrive Assessment: Date of Thrive Assessment Date Thrive assessed 09/13/22 09/13/22 13:21 Currently or been in a relationship where the following occur: no concerns reported Const General: no acute distress and alert HENMT Ears: TM's normal bilaterally and EAC's normal Throat: Yes posterior oropharynx normal and Yes tonsils normal (no TP congestion) Neck Neck: Yes no lymphadenopathy and Yes supple Thyroid: Thyroid normal Resp Auscultation: clear to auscultation bilaterally, no crackles and no rales Cardio Rate: regular rate Rhythm: regular rhythm Heart sounds: no murmurs GI Palpation (GI): Soft to palpation and nontender Auscultation: normal bowel sounds General: Yes no CVA tenderness Back/Spine/Pelvis Back: no CVA tenderness Thoracic/Lumbar Spine: paraspinal muscle tenderness bilaterally in the mid lumbar and in the lower lumbar and lumbar spinal tenderness Skin Rashes: no rashes Extrem General: Yes no clubbing, cyanosis or edema Assessment and Plan Assessment & Plan (1) Benign essential hypertension: Code(s): I10 - Essential (primary) hypertension Plan: Reinforced low-sodium diet - goal is systolic BP of at least 130 mm or less She is supposed to be on Losartan 100 mg QD, Amlodipine 10 mg QD, Hydrochlorothiazide 25 mg QD, Carvedilol 25 mg BID and Hydralazine 50 mg BID Admits that she has not been taking her meds for a while now and that she has been out of all of her meds and needs them all refilled Will refill all of her Rx at this time and advised to start back on them TERENCE (2) Abnormal EKG: Code(s): R94.31 - Abnormal electrocardiogram [ECG] [EKG] Plan: Echocardiogram done back in February 2022 revealed moderately decreased left ventricular systolic function, with the visually estimated ejection fraction between 30-35%. The basal inferior segment is akinetic and no obvious valvular pathology seen on this study Follow up with cardiology as scheduled (3) Hemorrhagic gastritis: Code(s): K29.71 - Gastritis, unspecified, with bleeding Qualifiers: Chronicity: chronic Gastritis type: unspecified gastritis Qualified Code(s): K29.51 - Unspecified chronic gastritis with bleeding Plan: EGD done back in 2015 ([address] Dr[address] Llanos) revealed findings of hemorrhagic gastritis with a small hiatal hernia Reinforced dietary restrictions Continue Omeprazole 40 mg QD She was seeing Dr. Llanos in the past for GI follow-up but has not seen GI in a while now She was referred back to GI at her last visit but it does not look like she has been seen yet (4) Asthma: Code(s): J45.909 - Unspecified asthma, uncomplicated Qualifiers: Asthma complication type: uncomplicated Asthma persistence: persistent Asthma severity: moderate Qualified Code(s): J45.40 - Moderate persistent asthma, uncomplicated Plan: Continue Flovent HFA 110 mcg 1 inhalation BID and ProAIr HFA 2 inhalations every 6 hours as needed (5) Allergic rhinitis: Code(s): J30.9 - Allergic rhinitis, unspecified Qualifiers: Allergic rhinitis seasonality: unspecified Allergic rhinitis trigger: unspecified Qualified Code(s): J30.9 - Allergic rhinitis, unspecified Plan: Continue Fluticasone 50 mcg nasal spray QD PRN and Loratadine 10 mg QD PRN (6) Lumbar spondylosis: Code(s): M47.816 - Spondylosis without myelopathy or radiculopathy, lumbar region Plan: Reinforced activity and weight lifting restrictions (7) Insomnia: Code(s): G47.00 - Insomnia, unspecified Qualifiers: Insomnia type: primary Qualified Code(s): F51.01 - Primary insomnia Plan: Sleep hygiene reinforced Continue Rozerem 8 mg Q HS PRN (8) Anxiety: Code(s): F41.9 - Anxiety disorder, unspecified Plan: Continue Citalopram 20 mg QD Follow up with psychiatry as scheduled (9) Smoker: Code(s): F17.200 - Nicotine dependence, unspecified, uncomplicated Plan: Counseled again on smoking cessation Plan Follow up in 1 month for her uncontrolled BP (due to non-compliance with meds) Medications: New amlodipine 10 mg PO DAILY 30 tabs 2RF 30 days loratadine 10 mg PO DAILY PRN 90 tabs 3RF allergy symptoms 90 days J30.9 - Allergic rhinitis, unspecified Changed From albuterol sulfate 90 mcg/actuation 2 puffs PO QID PRN 8.5 ea 0RF for wheezing To albuterol sulfate 90 mcg/actuation (ProAir HFA) 2 puffs PO QID PRN 8.5 ea 5RF shortness of breath or wheezing From fluticasone propionate 50 mcg/actuation administer into each nostril 2 sprays intranasal DAILY PRN allergy symptoms To fluticasone propionate 50 mcg/actuation administer into each nostril 2 sprays intranasal DAILY PRN 16 grams 5RF allergy symptoms From loratadine 10 mg PO DAILY PRN allergy symptoms To loratadine 10 mg PO DAILY PRN 90 caps 3RF allergy symptoms 90 days Refilled carvedilol (Coreg) must administer with a meal/food 25 mg PO BID 60 tabs 2RF omeprazole 40 mg PO DAILY PRN 90 caps 1RF Acid Reflux 90 days fluticasone propionate 110 mcg/actuation (Flovent HFA) 1 puff inhalation BID 12 grams 5RF 30 days Coding Level of Care Code Est Pt Level 3 (36091) Diagnoses Benign essential hypertension I10 Abnormal EKG R94.31 Chronic gastritis with bleeding, unspecified gastritis type K29.51 Chronicity: chronic Gastritis type: unspecified gastritis Moderate persistent asthma without complication J45.40 Asthma complication type: uncomplicated Asthma persistence: persistent Asthma severity: moderate Allergic rhinitis, unspecified seasonality, unspecified trigger J30.9 Allergic rhinitis seasonality: unspecified Allergic rhinitis trigger: unspecified Lumbar spondylosis M47.816 Primary insomnia F51.01 Insomnia type: primary Anxiety F41.9 Smoker F17.200
== END 2022-09-13 14:14 | disposition home or self-care (01) ==
LOC: HO.HMGH 13:13
PROVIDERS: PCP Internal Medicine; Visit Provider Internal Medicine
DX: I10 Essential (primary) hypertension (principal); R94.31 Abnormal electrocardiogram [ECG] [EKG]; K29.51 Unspecified chronic gastritis with bleeding; J45.40 Moderate persistent asthma, uncomplicated; J30.9 Allergic rhinitis, unspecified; M47.816 Spondylosis without myelopathy or radiculopathy, lumbar region; F51.01 Primary insomnia; F41.9 Anxiety disorder, unspecified; F17.200 Nicotine dependence, unspecified, uncomplicated
CPT/HCPCS: 99499

== ENCOUNTER 2023-01-03 14:51 | Outpatient (AMB) | payer OTHER, SELFPAY ==
--- NOTE | 2023-01-03 15:06 | MHC.PC.OV ---
Vital Signs 01/03/23 15:07 Height 5 ft 4 in Weight 139 lb 8 oz BMI 23.9 BP 136/80 Blood Pressure Location Lt brachial Position Sitting Pulse 61 Pulse Source Pulse Oximeter Pulse Oximetry (%) 99 Oxygen Delivery Method Room Air Intake Visit Reasons: 1 month f/u Allergies No Known Allergies [No Known Allergies*] Allergy (Verified 01/03/23 15:43) Medication List - Last Reconciled 01/03/23 by Tanvir Nguyen MD albuterol sulfate 90 mcg/actuation (ProAir HFA) 2 puffs PO QID PRN amlodipine 10 mg PO DAILY 30 days blood pressure monitor As directed - use to monitor BP daily as instructed carvedilol (Coreg) 25 mg PO BID cyanocobalamin (vitamin B-12) 1,000 mcg PO DAILY 90 days [DEPENDS Adult Pull ups (MEDIUM) As directed] fluticasone propionate 50 mcg/actuation 2 sprays intranasal DAILY PRN fluticasone propionate 110 mcg/actuation (Flovent HFA) 1 puff inhalation BID 30 days ibuprofen 800 mg PO TID PRN loratadine 10 mg PO DAILY PRN 90 days loratadine 10 mg PO DAILY PRN 90 days omeprazole 40 mg PO DAILY PRN 90 days sucralfate (Carafate) 10 mL PO QIDACHS 30 days Ventolin HFA 90 mcg/actuation (albuterol sulfate) 2 puffs inhalation Q6H PRN 30 days NS Tobacco use date assessed: 01/03/23 Dental Screening Dental Screen Date: 01/03/23 Did you have a dental visit in the last 12 months?: No Did you have a dental problem in the last 6 months where you did not have access to dental care?: No Was dental information given to patient?: No HPI 1 month f/u HPI Details Patient comes in today for her follow up visit States that she feels okay Relates that she was seen by cardiology at [facility] [place] recently and had some work ups done to check out her heart but we are unable to find any records or reports related to these Have advised patient that the last time cardiology saw her, based on her records, was BEFORE her last visit with me in September 2022 but she remains insistent that she was seen and had some tests done recently Recalls also getting some kind of stress test done a few months ago but again there are no records pertaining to this Have noted that when she was seen by cardiology back in June 2022, there were a lot of confusion as to what medications she was actually taking at the time for her blood pressure as they tried to correlate her Rx with her pharmacy and was supposedly told that there were Rx that have not been refilled in a while States that she is currently on Losartan 100 mg QD, Amlodipine 10 mg QD and Carvedilol 25 mg BID; is not taking Hydralazine at present She denies any headaches or dizziness Denies any chest pains, no SOB No nausea/vomiting, no abdominal pain No change in bowel habits noted Would like to see ENT to have her hearing examined - feels that she is slowly losing her hearing PFSH Medical History Allergic rhinitis Anxiety Asthma Benign essential hypertension Hemorrhagic gastritis Insomnia Lumbar spondylosis Overweight (BMI 25.0-29.9) Smoker Surgical History History of sleeve gastrectomy Family History Father No problems noted. Mother No problems noted. Social History Housing: Apartment Alcohol intake: current Alcohol intake frequency: holidays/special occasions only Patient Tobacco Use Status: Current everyday Tobacco user Tobacco use type: Cigarette Cigarettes Per Day: 4 e-Cigarette/Vaping Use: Never Used Second Hand Smoke Exposure: Yes Substance Use Type: Crack/Cocaine service: No Current occupational status: disabled Cognitive needs: No Hearing needs: No Vision needs: No Questionnaire PHQ-9 Over the last 2 weeks, how often have you been bothered by any of the following problems? 1. Little interest or pleasure in doing things: nearly every day 2. Feeling down, depressed, or hopeless: nearly every day 3. Trouble falling or staying asleep, or sleeping too much: nearly every day 4. Feeling tired or having little energy: not at all 5. Poor appetite or overeating: not at all 6. Feeling bad about yourself - or that you are a failure or have let yourself or your family down: not at all 7. Trouble concentrating on things, such as reading the newspaper or watching television: not at all 8. Moving or speaking so slowly that other people could have noticed. Or the opposite - being so fidgety or restless that you have been moving around a lot more than usual: not at all 9. Thoughts that you would be better off or of hurting yourself in some way: not at all Total score: 9 Depression Screening Interpretation: Positive (feels that she is more stressed out and anxious rather than depressed) Depression Screening Follow-up: Existing condition, Follow-up Visit Requested and Declines treatment 01806 - PHQ-9 Billing: Yes Source: Developed by Drs. Cristi Arceo, Radha Egan, Jewel Nash and colleagues, with an educational jose from [employer]. Thrive Questionnaire Date Thrive assessed: 01/03/23 I am a: Patient What is your living situation today?: I have a steady place to live Within the past 12 months, did the food you bought not last and you didn't have the money to get more?: Never true Within the past 12 months, did you worry whether your food would run out before you got money to buy more?: Never true Do you have trouble paying for medicines?: No Do you have trouble getting transportation to medical appointments?: No Do you have trouble paying your heating and electricity bill?: No Do you have trouble taking care of your child, family member or friend?: No Do you have trouble with day-to-day activities such as bathing, preparing meals, shopping, managing finances, etc.?: No Are you currently unemployed and looking for a job?: No Are you interested in more education?: No Please select the resources that you would like help with: None Currently or been in a relationship where the following occur: no concerns reported AUDIT C Alcohol Use Questionnaire (AUDIT-C) 1. How often do you have a drink containing alcohol?: Monthly or less 2. How many drinks containing alcohol do you have on a typical day when you are drinking?: 1 or 2 3. How often do you have six or more drinks on one occasion?: Never Total Score: 1 Score Reviewed/Action Taken: Yes PORFIRIO-7 AMB Questionnaire PORFIRIO-7 Date PORFIRIO - 7 assessed: 01/03/23 Feeling nervous, anxious, or on edge: 3 = Nearly every day Not being able to stop or control worryin = Nearly every day Worrying too much about different things: 3 = Nearly every day Trouble relaxin = Nearly every day Being so restless that it is hard to sit still: 0 = Not at all Becoming easily annoyed or irritable: 0 = Not at all Feeling afraid as if something awful might happen: 0 = Not at all Total PORFIRIO-7 score (0-4 normal; 5-9 mild; 10-14 moderate; 15-21 severe): 12 Source: Developed by Drs. Cristi Arceo, Radha Egan, Jewel Nash and colleagues, with an educational jose from [employer]. Review of Systems Const Denies chills, Reports fatigue, Denies fever(s) and Denies headache(s) ENT Denies dysphagia, Denies dizziness, Denies otalgia, Denies headache(s), Reports hearing loss, Denies neck pain, Denies odynophagia and Denies sore throat Card Denies chest pain, Denies palpitations and Denies dyspnea Resp Denies cough and Denies dyspnea GI Denies abdominal pain, Denies constipation, Denies dysphagia, Denies heartburn, Denies diarrhea, Denies nausea, Denies odynophagia and Denies vomiting Denies difficulty voiding, Denies nocturia, Denies dysuria and Reports urinary incontinence (at times) Musc Reports back pain (over the lower back) and Denies neck pain Skin/Breast Denies rash Neuro Denies dizziness and Denies headache(s) Psych Reports anxiety Endo Reports fatigue and Denies palpitations Physical exam (Primary Care) Vital Signs: Last Vital Signs Pulse 61 01/03/23 15:07 BP 136/80 01/03/23 15:07 Pulse Ox 99 01/03/23 15:07 Oxygen Delivery Method Room Air 01/03/23 15:07 BMI result Body Mass Index 23.9 Tobacco/Smoking Status: Tobacco use Status Tobacco use date assessed 01/03/23 01/03/23 15:10 Patient Tobacco Use Status Current everyday Tobacco 01/03/23 15:10 Tobacco use type Cigarette 01/03/23 15:10 e-Cigarette/Vaping Use Never Used 01/03/23 15:10 PHQ-9: PHQ-9 Score PHQ-9: Total score 9 01/04/23 09:21 Depression Screening Interpretation: Positive (feels that she is more stressed out and anxious rather than depressed) Depression Screening Follow-up: Existing condition, Follow-up Visit Requested and Declines treatment Thrive Assessment: Date of Thrive Assessment Date Thrive assessed 01/03/23 01/03/23 15:10 Currently or been in a relationship where the following occur: no concerns reported Const General: no acute distress and alert HENMT Ears: TM's normal bilaterally and EAC's normal Throat: Yes posterior oropharynx normal and Yes tonsils normal (no TP congestion) Neck Neck: Yes no lymphadenopathy and Yes supple Resp Auscultation: clear to auscultation bilaterally, no rales and no wheezes Cardio Rate: regular rate Rhythm: regular rhythm Heart sounds: no murmurs GI Palpation (GI): Soft to palpation and nontender Auscultation: normal bowel sounds Back/Spine/Pelvis Thoracic/Lumbar Spine: lumbar spinal tenderness Skin Rashes: no rashes Extrem General: Yes no clubbing, cyanosis or edema Assessment and Plan Assessment & Plan (1) Benign essential hypertension: Code(s): I10 - Essential (primary) hypertension Plan: Reinforced low-sodium diet - goal is systolic BP of at least 130 mm or less Continue Losartan 100 mg QD, Amlodipine 10 mg QD and Carvedilol 25 mg BID Will have her get some follow up labs done in 3 months (2) Abnormal EKG: Code(s): R94.31 - Abnormal electrocardiogram [ECG] [EKG] Plan: Was supposed to have echocardiogram done earlier this year but patient states that she never did get it done - this was reordered a few months ago but was cancelled, as patient apparently had one done recently back in February 2022, which revealed (+) cardiomyopathy Her left ventricular systolic function was noted to be moderately decreased, with a visually estimated ejection fraction between 30-35%. The basal inferior segment was akinetic but no obvious valvular pathology was seen on this study. Follow up with cardiology as scheduled - she was seen back in June 2022 but does not have a follow up appt scheduled and she is advised to call up the cardiology office to schedule one (3) Hemorrhagic gastritis: Code(s): K29.71 - Gastritis, unspecified, with bleeding Qualifiers: Gastritis type: unspecified gastritis Chronicity: chronic Qualified Code(s): K29.51 - Unspecified chronic gastritis with bleeding Plan: EGD done back in [address] ([address] Llanos) evealed findings of hemorrhagic gastritis with a small hiatal hernia She has been advised that this may be the cause of her recurrent nausea and vomiting over the years Reinforced dietary restrictions Continue Omeprazole 40 mg QD and Carafate 10 ml QID Follow up with GI as scheduled (4) Asthma: Code(s): J45.909 - Unspecified asthma, uncomplicated Qualifiers: Asthma severity: moderate Asthma persistence: persistent Asthma complication type: uncomplicated Qualified Code(s): J45.40 - Moderate persistent asthma, uncomplicated Plan: Continue Flovent HFA 110 mcg 1 inhalation BID and ProAIr HFA 2 inhalations every 6 hours as needed (5) Allergic rhinitis: Code(s): J30.9 - Allergic rhinitis, unspecified Qualifiers: Allergic rhinitis trigger: unspecified Allergic rhinitis seasonality: unspecified Qualified Code(s): J30.9 - Allergic rhinitis, unspecified Plan: Continue Fluticasone 50 mcg nasal spray QD PRN and Loratadine 10 mg QD PRN (6) Lumbar spondylosis: Code(s): M47.816 - Spondylosis without myelopathy or radiculopathy, lumbar region Plan: Reinforced activity and weight lifting restrictions Continue Ibuprofen 800 mg TID PRN for pain (7) Hearing loss: Code(s): H91.90 - Unspecified hearing loss, unspecified ear Qualifiers: Hearing loss type: unspecified Laterality: unspecified laterality Qualified Code(s): H91.90 - Unspecified hearing loss, unspecified ear Plan: Per request, will refer her to ENT for further evaluation and management (8) Insomnia: Code(s): G47.00 - Insomnia, unspecified Qualifiers: Insomnia type: primary Qualified Code(s): F51.01 - Primary insomnia Plan: Sleep hygiene reinforced Used to take Rozerem but states that she is currently not taking anything for sleep (9) Anxiety: Code(s): F41.9 - Anxiety disorder, unspecified Plan: Was taking Citalopram 20 mg QD in the past but self-discontinued this at some point Follow up with psychiatry as scheduled (10) Smoker: Code(s): F17.200 - Nicotine dependence, unspecified, uncomplicated Plan: Counseled again on smoking cessation Plan Follow up in 3 months Orders: Orders B Type Natriuretic Peptide 3 Months I50.9 - Heart failure, unspecified Comprehensive [place]. Panel Fast 3 Months E78.00 - Pure hypercholesterolemia, unspecified Lipid Panel 3 Months E78.00 - Pure hypercholesterolemia, unspecified TSH reflex Free T4 3 Months E78.00 - Pure hypercholesterolemia, unspecified Vitamin D 25-OH Total 3 Months E55.9 - Vitamin D deficiency, unspecified Complete Blood Count Auto Diff 3 Months I10 - Essential (primary) hypertension UA CC w/rflx Micro + Cult 3 Months R30.0 - Dysuria Referrals Ear/Nose/Throat Referral H91.90 - Unspecified hearing loss, unspecified ear Medications: Discontinued hydralazine Discontinued Reason: Doctor's Order 50 mg PO BID 60 tabs 2RF Coding Level of Care Code Est Pt Level 4 (17879) Diagnoses Benign essential hypertension I10 Abnormal EKG R94.31 Hemorrhagic gastritis K29.51 Gastritis type: unspecified gastritis Chronicity: chronic Asthma J45.40 Asthma severity: moderate Asthma persistence: persistent Asthma complication type: uncomplicated Allergic rhinitis J30.9 Allergic rhinitis trigger: unspecified Allergic rhinitis seasonality: unspecified Lumbar spondylosis M47.816 Hearing loss H91.90 Hearing loss type: unspecified Laterality: unspecified laterality Insomnia F51.01 Insomnia type: primary Anxiety F41.9 Smoker F17.200
[2023-01-03 15:07] VITALS: BP 136/80; PULSE 61; O2SAT 99; BMI 23.9
== END 2023-01-03 16:07 | disposition home or self-care (01) ==
PROVIDERS: PCP Internal Medicine; Visit Provider Internal Medicine
DX: I10 Essential (primary) hypertension (principal); J45.40 Moderate persistent asthma, uncomplicated; F41.9 Anxiety disorder, unspecified; F17.210 Nicotine dependence, cigarettes, uncomplicated; R94.31 Abnormal electrocardiogram [ECG] [EKG]; K29.51 Unspecified chronic gastritis with bleeding; J30.9 Allergic rhinitis, unspecified; M47.816 Spondylosis without myelopathy or radiculopathy, lumbar region; H91.93 Unspecified hearing loss, bilateral; F51.01 Primary insomnia
CPT/HCPCS: 99214

== ENCOUNTER 2023-02-06 10:24 | Outpatient (AMB) | payer OTHER, SELFPAY ==
--- NOTE | 2023-02-06 10:39 | A.OFFPC_ITS ---
Vital Signs 02/06/23 10:40 Height 5 ft 4 in Weight 138 lb BMI 23.7 BP 144/78 H Blood Pressure Location Lt brachial Position Sitting Pulse 71 Pulse Source Pulse Oximeter Pulse Oximetry (%) 98 Oxygen Delivery Method Room Air Intake Visit Reasons: Low back pain Instructor Bridge Required: No Accompanied by: Self / Same As Patient Allergies No Known Allergies [No Known Allergies*] Allergy (Verified 02/06/23 12:07) Medication List - Last Reconciled 02/06/23 by Tanvir Nguyen MD albuterol sulfate 90 mcg/actuation (ProAir HFA) 2 puffs PO QID PRN amlodipine 10 mg PO DAILY 30 days blood pressure monitor As directed - use to monitor BP daily as instructed carvedilol (Coreg) 25 mg PO BID cyanocobalamin (vitamin B-12) 1,000 mcg PO DAILY 90 days [DEPENDS Adult Pull ups (MEDIUM) As directed] fluticasone propionate 50 mcg/actuation 2 sprays intranasal DAILY PRN fluticasone propionate 110 mcg/actuation (Flovent HFA) 1 puff inhalation BID 30 days ibuprofen 800 mg PO TID PRN loratadine 10 mg PO DAILY PRN 90 days loratadine 10 mg PO DAILY PRN 90 days omeprazole 40 mg PO DAILY PRN 90 days sucralfate (Carafate) 10 mL PO QIDACHS 30 days tizanidine 4 mg PO Q8H PRN 30 days Ventolin HFA 90 mcg/actuation (albuterol sulfate) 2 puffs inhalation Q6H PRN 30 days NS Tobacco use date assessed: 02/06/23 Dental Screening Dental Screen Date: 02/06/23 Did you have a dental visit in the last 12 months?: No Did you have a dental problem in the last 6 months where you did not have access to dental care?: No Was dental information given to patient?: No HPI Low back pain HPI Details Patient comes in today complaining of increased pain and recurrent spasms over her lower back bilaterally (on both sides of her spine) for the past couple of days She denies any heavy lifting or any activity or trauma recently that could have triggered her current back problems but recalls falling (fell sitting down) a few weeks ago - is not sure if this is what brought on her current issue States that she felt concerned about her kidneys based on the location of her pain so she called to schedule an appointment to come in and get this checked out She denies any urinary frequency or dysuria and has not noticed any blood in her urine lately No other acute complaints or symptoms are noted at present [facility] Medical History Benign essential hypertension Overweight (BMI 25.0-29.9) Smoker Anxiety Insomnia Lumbar spondylosis Allergic rhinitis Hemorrhagic gastritis Asthma Surgical History History of sleeve gastrectomy Family History Father No problems noted. Mother No problems noted. Social History Housing: Apartment Alcohol intake: current Alcohol intake frequency: holidays/special occasions only Patient Tobacco Use Status: Current everyday Tobacco user Tobacco use type: Cigarette Cigarettes Per Day: 4 e-Cigarette/Vaping Use: Never Used Second Hand Smoke Exposure: Yes Substance Use Type: Crack/Cocaine service: No Current occupational status: disabled Cognitive needs: No Hearing needs: No Vision needs: No Questionnaire PHQ-9 Over the last 2 weeks, how often have you been bothered by any of the following problems? 1. Little interest or pleasure in doing things: nearly every day 2. Feeling down, depressed, or hopeless: nearly every day 3. Trouble falling or staying asleep, or sleeping too much: nearly every day 4. Feeling tired or having little energy: not at all 5. Poor appetite or overeating: not at all 6. Feeling bad about yourself - or that you are a failure or have let yourself or your family down: not at all 7. Trouble concentrating on things, such as reading the newspaper or watching television: not at all 8. Moving or speaking so slowly that other people could have noticed. Or the opposite - being so fidgety or restless that you have been moving around a lot more than usual: not at all 9. Thoughts that you would be better off or of hurting yourself in some way: not at all Total score: 9 Depression Screening Interpretation: Positive (feels that she is more stressed out and anxious rather than depressed) Depression Screening Follow-up: Existing condition, Follow-up Visit Requested and Declines treatment Depression Screening Done: Yes [id number] - PHQ-9 Billing: Yes Source: Developed by Drs. Cristi Arceo, Radha Egan, Jewel Nash and colleagues, with an educational jose from [employer]. Thrive Questionnaire Date Thrive assessed: 02/06/23 I am a: Patient What is your living situation today?: I have a steady place to live Within the past 12 months, did the food you bought not last and you didn't have the money to get more?: Never true Within the past 12 months, did you worry whether your food would run out before you got money to buy more?: Never true Do you have trouble paying for medicines?: No Do you have trouble getting transportation to medical appointments?: No Do you have trouble paying your heating and electricity bill?: No Do you have trouble taking care of your child, family member or friend?: No Do you have trouble with day-to-day activities such as bathing, preparing meals, shopping, managing finances, etc.?: No Are you currently unemployed and looking for a job?: No Are you interested in more education?: No Please select the resources that you would like help with: None Currently or been in a relationship where the following occur: no concerns reported AUDIT C Alcohol Use Questionnaire (AUDIT-C) 1. How often do you have a drink containing alcohol?: Monthly or less 2. How many drinks containing alcohol do you have on a typical day when you are drinking?: 1 or 2 3. How often do you have six or more drinks on one occasion?: Never Total Score: 1 Score Reviewed/Action Taken: Yes PORFIRIO-7 AMB Questionnaire PORFIRIO-7 Date PORFIROI - 7 assessed: 02/06/23 Feeling nervous, anxious, or on edge: 3 = Nearly every day Not being able to stop or control worryin = Nearly every day Worrying too much about different things: 3 = Nearly every day Trouble relaxin = Nearly every day Being so restless that it is hard to sit still: 0 = Not at all Becoming easily annoyed or irritable: 0 = Not at all Feeling afraid as if something awful might happen: 0 = Not at all Total PORFIRIO-7 score (0-4 normal; 5-9 mild; 10-14 moderate; 15-21 severe): 12 Source: Developed by Drs. Cristi Arceo, Radha Egan, Jewel Nash and colleagues, with an educational jose from [employer]. Review of Systems Const Denies fatigue, Denies fever(s) and Denies headache(s) ENT Denies dysphagia, Denies dizziness, Denies otalgia, Denies headache(s), Reports hearing loss, Denies neck pain, Denies odynophagia and Denies sore throat Card Denies chest pain, Denies palpitations and Denies dyspnea Resp Denies cough and Denies dyspnea GI Denies abdominal pain, Denies constipation, Denies dysphagia, Denies heartburn, Denies diarrhea, Denies nausea, Denies odynophagia and Denies vomiting Denies difficulty voiding, Denies nocturia, Denies dysuria and Reports urinary incontinence (at times) Musc Reports back pain (over the lower back; increased pain and spasms over both sides of spine) and Denies neck pain Skin/Breast Denies rash Neuro Denies dizziness and Denies headache(s) Psych Reports anxiety Endo Denies fatigue and Denies palpitations Physical exam (Primary Care) Vital Signs: Last Vital Signs Pulse 71 02/06/23 10:40 BP 144/78 H 02/06/23 10:40 Pulse Ox 98 02/06/23 10:40 Oxygen Delivery Method Room Air 02/06/23 10:40 BMI result Body Mass Index 23.7 Tobacco/Smoking Status: Tobacco use Status Tobacco use date assessed 02/06/23 02/06/23 10:41 Patient Tobacco Use Status Current everyday Tobacco 02/06/23 10:41 Tobacco use type Cigarette 02/06/23 10:41 e-Cigarette/Vaping Use Never Used 02/06/23 10:41 PHQ-9: PHQ-9 Score PHQ-9: Total score 9 02/06/23 10:41 Depression Screening Interpretation: Positive (feels that she is more stressed out and anxious rather than depressed) Depression Screening Follow-up: Existing condition, Follow-up Visit Requested and Declines treatment Thrive Assessment: Date of Thrive Assessment Date Thrive assessed 02/06/23 02/06/23 10:41 Currently or been in a relationship where the following occur: no concerns reported Const General: no acute distress and alert HENMT Ears: TM's normal bilaterally and EAC's normal Throat: Yes posterior oropharynx normal and Yes tonsils normal (no TP congestion) Neck Neck: Yes no lymphadenopathy and Yes supple Resp Auscultation: clear to auscultation bilaterally, no rales and no wheezes Cardio Rate: regular rate Rhythm: regular rhythm Heart sounds: no murmurs GI Palpation (GI): Soft to palpation and nontender Auscultation: normal bowel sounds Back/Spine/Pelvis Thoracic/Lumbar Spine: paraspinal muscle tenderness bilaterally in the upper lumbar, in the mid lumbar and in the lower lumbar and lumbar spinal tenderness Skin Rashes: no rashes Extrem General: Yes no clubbing, cyanosis or edema Office Procedures Flu Questionnaire Does the patient have a severe egg allergy?: No Immunizations flu vacc [id number] 6mos up(PF) 60 mcg(15 mcgx4)/0.5 mL IM syringe Performing Provider: Tanvir Nguyen MD [facility] Documented (not given) by: Vicki Nielsen on 02/06/23 10:45 Reason Not Given: Patient Refused Assessment and Plan Assessment & Plan (1) Strain of lumbar paraspinal muscle: Code(s): S39.012A - Strain of muscle, fascia and tendon of lower back, initial encounter Qualifiers: Encounter type: initial encounter Qualified Code(s): S39.012A - Strain of muscle, fascia and tendon of lower back, initial encounter Plan: Patient is reassured that based on the location of her pain and the nature of her symptoms, she does NOT have any problems with her kidneys and that her symptoms are mostly due to muscle strain of the bilateral paraspinal muscles over her lumbar region Advised that her fall a few weeks ago may have contributed to her current issues but they could also have been triggered by something more recent Will start her on Tizanidine 4 mg TID PRN; may also apply some warm compress over her lower back PRN for symptomatic relief Will refer her as well to physical therapy for further evaluation and management Plan Follow up as scheduled next month Orders: Orders Influenza [id number] Immunization Today Z23 - Encounter for immunization PT Evaluation and Treatment Today S39.012A - Strain of muscle, fascia and tendon of lower back, initial encounter Medications: New tizanidine 4 mg PO Q8H 30 days PRN 90 tabs 0RF muscle spasms Coding Level of Care Code Est Pt Level 3 (95270) Diagnoses Strain of lumbar paraspinous muscle, initial encounter S39.012A Encounter type: initial encounter
[2023-02-06 10:40] VITALS: BP 144/78; PULSE 71; O2SAT 98; BMI 23.7
== END 2023-02-06 11:17 | disposition home or self-care (01) ==
PROVIDERS: PCP Internal Medicine; Visit Provider Internal Medicine
DX: S39.012A Strain of muscle, fascia and tendon of lower back, initial encounter (principal)
CPT/HCPCS: 99213

== ENCOUNTER 2023-02-14 14:05 | Outpatient (REF) | payer OTHER, SELFPAY ==
[2023-02-15 04:37] LABS: HIV AB/AG Nonreactive (Nonreactive); HIV Num 1 0.07 S/CO (0.00-0.99)
== END 2023-02-14 14:06 | disposition home or self-care (01) ==
LOC: HO.LAB 14:05
PROVIDERS: PCP Internal Medicine; Visit Provider Internal Medicine
DX: Z20.2 Contact with and (suspected) exposure to infections with a predominantly sexual mode of transmission (principal)
CPT/HCPCS: 36415; 87389

== ENCOUNTER 2023-06-01 09:19 | Outpatient (REF) | payer OTHER, SELFPAY ==
[2023-06-01 09:33] LABS: MANUAL DIFF FLAG NO
[2023-06-01 10:34] LABS: Basophils Absolute Auto 0.1 X10*3/uL (0.0-0.2); Basophils Percent Auto 0.6 % (0-2); Eosinophils Absolute Auto 0.1 X10*3/uL (0.0-0.4); Eosinophils Percent Auto 1.3 % (0-4); Hematocrit 42.2 % (37.0-47.0); Imm Gran Abs Auto 0.01 X10*3/uL (0.00-0.03); Imm Gran Pct Auto 0.1 % (0.0-0.4); Lymphocytes Absolute Auto 2.4 X10*3/uL (1.2-4.9); Mean Corpuscular HGB Conc 33.2 g/dl (31.0-35.0); Mean Corpuscular Hemoglobin 29.5 pg (27.0-33.0); Mean Corpuscular Volume 88.8 fL (80.0-98.0); Mean Platelet Volume 10.7 fL (9.4-12.3); Monocytes Absolute Auto 0.4 X10*3/uL (0.1-1.2); Monocytes Percent Auto 4.8 % (2-11); Neutrophils Percent Auto 63.2 % (45-73); Platelet Count 326 X10*3/uL (160-400); Red Blood Count 4.75 X10*6/uL (4.20-5.50); Red Cell Distribution Width 12.7 % (11.0-16.0); White Blood Count 7.9 X10*3/uL (4.8-10.8)
[2023-06-01 10:42] LABS: Appearance Urine Clear; Color Urine Yellow; Glucose Urine UA Negative (Negative); Leukocyte Esterase Urine Negative (Negative); Nitrite Urine Negative (Negative); PH 6.5 (5.0-9.0); Urine Blood Negative (Negative); Urine Ketones Negative (Negative); Urine Protein Negative (Neg-Trace)
[2023-06-01 11:02] LABS: B Type Natriuretic Peptide 338 pg/mL (<100)
[2023-06-01 11:30] LABS: Alanine Aminotransferase 14 U/L (0-31); Albumin Level 4.1 g/dL (3.5-5.0); Alkaline Phosphatase 120 U/L (39-117); Anion Gap 12 (12-20); Aspartate Amino Transferase 17 U/L (5-31); Bilirubin Total 0.7 mg/dL (0.0-1.0); Blood Urea Nitrogen 12 mg/dL (9-16); Calcium 9.4 mg/dL (8.4-10.2); Carbon Dioxide 29 mmol/L (22-29); Chloride 105 mmol/L (96-108); Cholesterol 162 mg/dL (<200); Estimated Glomerular Filt Rate 57; Glucose Fasting 80 mg/dL (60-99); HDL Cholesterol 74 mg/dL (>40); LDL Cholesterol Calculated 75 mg/dL (<100); Sodium 142 mmol/L (135-145); Total Protein 7.3 g/dL (6.5-8.0); Triglycerides 65 mg/dL (<150)
[2023-06-01 11:34] LABS: Vitamin D 25-OH Total 9.3 ng/mL (>30)
== END 2023-06-01 09:20 | disposition home or self-care (01) ==
LOC: HO.LAB 09:19
PROVIDERS: PCP Internal Medicine; Visit Provider Internal Medicine
DX: I11.0 Hypertensive heart disease with heart failure (principal); I50.9 Heart failure, unspecified; R30.0 Dysuria; E78.00 Pure hypercholesterolemia, unspecified; E55.9 Vitamin D deficiency, unspecified
CPT/HCPCS: 36415; 80053; 80061; 81003; 82306; 83880; 84443; 85025

== ENCOUNTER 2023-09-21 09:35 | Outpatient (AMB) | payer OTHER, SELFPAY ==
[2023-09-21 09:37] VITALS: BP 176/102; PULSE 90; O2SAT 98; BMI 24.7
--- NOTE | 2023-09-21 09:37 | A.OFFPC_ITS ---
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 Required: No Marketing Support Assistant: Not Required per policy Accompanied by: Self / Same As Patient Allergies No Known Allergies [No Known Allergies*] Allergy (Verified 09/21/23 10:24) Medication List - Last Reconciled 09/21/23 by Tanvir Nguyen MD albuterol sulfate 90 mcg/actuation (Ventolin HFA) 2 puffs PO QID PRN amlodipine 10 mg PO DAILY 30 days blood pressure monitor As directed - use to monitor BP daily as instructed carvedilol (Coreg) 25 mg PO BID cyanocobalamin (vitamin B-12) 1,000 mcg PO DAILY 90 days [DEPENDS Adult Pull ups (MEDIUM) As directed] fluticasone propionate 110 mcg/actuation (Flovent HFA) 1 puff inhalation BID 30 days fluticasone propionate 50 mcg/actuation 2 sprays intranasal DAILY PRN ibuprofen 800 mg PO TID PRN loratadine 10 mg PO DAILY PRN 90 days loratadine 10 mg PO DAILY PRN 90 days omeprazole 40 mg PO DAILY PRN 90 days sucralfate (Carafate) 10 mL PO QIDACHS 30 days tizanidine 4 mg PO Q8H PRN 30 days Ventolin HFA 90 mcg/actuation (albuterol sulfate) 2 puffs inhalation Q6H PRN 30 days NS Tobacco use date assessed: 09/21/23 Dental Screening Dental Screen Date: 09/21/23 Did you have a dental visit in the last 12 months?: No Did you have a dental problem in the last 6 months where you did not have access to dental care?: No Was dental information given to patient?: Patient has dentist HPI Chest pain HPI Details Patient comes in today for her follow up visit States that she's had a low-grade fever and sore throat x 3 days Notes that her chest feels tight at times; states that she has a recurrent cough and coughs up thick whitish phlegm occasionally Has noticed some BLUNT and chest discomfort/heaviness recently She denies any headaches or dizziness No nausea/vomiting, no abdominal pain No change in bowel habits noted Would like to know how she did on her labs done back in May 2023 [facility] Medical History (Updated 09/21/23 @ 11:05 by Tanvir Nguyen MD) Vitamin D deficiency Essential hypertension Overweight (BMI 25.0-29.9) Smoker Anxiety Insomnia Lumbar spondylosis Allergic rhinitis Hemorrhagic gastritis Asthma Surgical History History of sleeve gastrectomy Family History Father No problems noted. Mother No problems noted. Social History Housing: Apartment Alcohol intake: current Alcohol intake frequency: holidays/special occasions only Patient Tobacco Use Status: Current everyday Tobacco user Tobacco use type: Cigarette Cigarettes Per Day: 4 e-Cigarette/Vaping Use: Never Used Second Hand Smoke Exposure: Yes Substance Use Type: Crack/Cocaine service: No Current occupational status: disabled Cognitive needs: No Hearing needs: No Vision needs: No Questionnaire PHQ-9 Over the last 2 weeks, how often have you been bothered by any of the following problems? 1. Little interest or pleasure in doing things: not at all 2. Feeling down, depressed, or hopeless: not at all 3. Trouble falling or staying asleep, or sleeping too much: not at all 4. Feeling tired or having little energy: not at all 5. Poor appetite or overeating: not at all 6. Feeling bad about yourself - or that you are a failure or have let yourself or your family down: not at all 7. Trouble concentrating on things, such as reading the newspaper or watching television: not at all 8. Moving or speaking so slowly that other people could have noticed. Or the opposite - being so fidgety or restless that you have been moving around a lot more than usual: not at all 9. Thoughts that you would be better off or of hurting yourself in some way: not at all Total score: 0 Depression Screening Interpretation: Positive (feels that she is more stressed out and anxious rather than depressed) Depression Screening Follow-up: Existing condition, Follow-up Visit Requested and Declines treatment Depression Screening Done: Yes 59682 - PHQ-9 Billing: Yes Source: Developed by Drs. Cristi Arceo, Radha Egan, Jewel Nash and colleagues, with an educational jose from [employer]. Thrive Questionnaire Date Thrive assessed: 09/21/23 I am a: Patient What is your living situation today?: I have a steady place to live Within the past 12 months, did the food you bought not last and you didn't have the money to get more?: Never true Within the past 12 months, did you worry whether your food would run out before you got money to buy more?: Never true Do you have trouble paying for medicines?: No Do you have trouble getting transportation to medical appointments?: No Do you have trouble paying your heating and electricity bill?: No Do you have trouble taking care of your child, family member or friend?: No Do you have trouble with day-to-day activities such as bathing, preparing meals, shopping, managing finances, etc.?: No Are you currently unemployed and looking for a job?: No Are you interested in more education?: No Please select the resources that you would like help with: None Currently or been in a relationship where the following occur: no concerns reported THRIVE Score: 0 AUDIT C Alcohol Use Questionnaire (AUDIT-C) 1. How often do you have a drink containing alcohol?: Monthly or less 2. How many drinks containing alcohol do you have on a typical day when you are drinking?: 1 or 2 3. How often do you have six or more drinks on one occasion?: Never Total Score: 1 Score Reviewed/Action Taken: Yes PORFIRIO-7 AMB Questionnaire PORFIRIO-7 Date PORFIRIO - 7 assessed: 09/21/23 Feeling nervous, anxious, or on edge: 0 = Not at all Not being able to stop or control worryin = Not at all Worrying too much about different things: 0 = Not at all Trouble relaxin = Not at all Being so restless that it is hard to sit still: 0 = Not at all Becoming easily annoyed or irritable: 0 = Not at all Feeling afraid as if something awful might happen: 0 = Not at all Total PORFIRIO-7 score (0-4 normal; 5-9 mild; 10-14 moderate; 15-21 severe): 0 Source: Developed by Drs. Cristi Arceo, Radha Egan, Jewel Nash and colleagues, with an educational jose from [employer]. Review of Systems Const Denies chills, Reports fatigue, Reports fever(s) (x 3 days) and Denies headache(s) ENT Denies dysphagia, Denies dizziness, Denies otalgia, Denies headache(s), Reports hearing loss, Reports nasal congestion, Denies neck pain, Denies odynophagia and Reports sore throat Card Denies chest pain, Denies palpitations and Reports dyspnea on exertion (mild) Resp Reports chest congestion (chest feels tight at times), Reports cough (on and off, coughs up thick whitish phegm at times), Reports dyspnea on exertion (mild) and Denies wheezing GI Denies abdominal pain, Denies constipation, Denies dysphagia, Denies heartburn, Denies diarrhea, Denies nausea, Denies odynophagia and Denies vomiting Denies difficulty voiding, Denies nocturia, Denies dysuria, Reports urinary incontinence (at times) and Denies urinary urgency Musc Reports back pain (over the lower back; increased pain and spasms over both sides of spine) and Denies neck pain Skin/Breast Denies rash Neuro Denies dizziness and Denies headache(s) Psych Reports anxiety Endo Reports fatigue and Denies palpitations Aller/Immun Denies wheezing Physical exam (Primary Care) Vital Signs: Last Vital Signs Pulse 90 09/21/23 09:37 BP 176/102 H 09/21/23 09:37 Pulse Ox 98 09/21/23 09:37 Oxygen Delivery Method Room Air 09/21/23 09:37 BMI result Body Mass Index 24.7 Tobacco/Smoking Status: Tobacco use Status Tobacco use date assessed 09/21/23 09/21/23 09:39 Patient Tobacco Use Status Current everyday Tobacco 09/21/23 09:39 Tobacco use type Cigarette 09/21/23 09:39 e-Cigarette/Vaping Use Never Used 09/21/23 09:39 PHQ-9: PHQ-9 Score PHQ-9: Total score 0 09/21/23 09:44 Depression Screening Interpretation: Positive (feels that she is more stressed out and anxious rather than depressed) Depression Screening Follow-up: Existing condition, Follow-up Visit Requested and Declines treatment Thrive Assessment: Date of Thrive Assessment Date Thrive assessed 09/21/23 09/21/23 09:39 Currently or been in a relationship where the following occur: no concerns reported Const General: no acute distress and alert HENMT Ears: TM's normal bilaterally and EAC's normal Throat: Yes posterior oropharynx normal and Yes tonsils normal (no TP congestion) Neck Neck: Yes no lymphadenopathy and Yes supple Thyroid: Thyroid normal Resp Auscultation: no crackles, no rales, rhonchi (scattered) throughout, no wheezes and diminished lung sounds bilateral Cardio Rate: regular rate Rhythm: regular rhythm Heart sounds: no murmurs GI Palpation (GI): Soft to palpation and nontender Auscultation: normal bowel sounds General: Yes no CVA tenderness Back/Spine/Pelvis Back: no CVA tenderness Thoracic/Lumbar Spine: paraspinal muscle tenderness bilaterally in the mid lumbar and in the lower lumbar and lumbar spinal tenderness Skin Rashes: no rashes Extrem General: Yes no clubbing, cyanosis or edema Results Reviewed Results Reviewed: Laboratory Tests 06/01/23 06/01/23 09:25 09:32 WBC 7.9 Hgb 14.0 Hct 42.2 Plt Count 326 Sodium 142 Potassium 4.0 Creatinine 1.02 Estimated GFR 57 Fasting Glucose 80 Calcium 9.4 AST 17 ALT 14 B-Natriuretic Peptide 338 H Triglycerides 65 Cholesterol 162 LDL Cholesterol, Calc 75 HDL Cholesterol 74 25-OH Vitamin D Total 9.3 L TSH 1.70 Ur Specific [place] 1.020 Urine Protein Negative Urine Glucose (UA) Negative Urine Blood Negative Urine Nitrite Negative Ur Leukocyte Esterase Negative Assessment and Plan Assessment & Plan (1) Essential hypertension: Code(s): I10 - Essential (primary) hypertension Plan: Reinforced low sodium diet - goal is systolic BP of at least 120 to 130 mm or less Patient at this point is completely unsure of what she is taking for her blood pressure and based on her Rx log, she has not filled her Rx in a while She is advised that we need to get her blood pressure controlled better as quickly as possible Will start her back on Losartan 100 mg QD, Amlodipine 10 mg QD and Carvedilol 25 mg BID She is reminded to try to monitor her blood pressure regularly (2) Vitamin D deficiency: Code(s): E55.9 - Vitamin D deficiency, unspecified Plan: She is advised that her Vitamin D level was very low on her labs done back in May 2023 - level was <10 Will start her on Vitamin D3 2000 units QD (3) QT prolongation: Code(s): R94.31 - Abnormal electrocardiogram [ECG] [EKG] Plan: Patient was seen for this by cardiology last year but her BP at the time was very high and patient was unable to provide information as to what medications she was on at the time so no evaluation could be done then Echocardiogram done back in February 2022 revealed moderately decreased left ventricular systolic function, with the visually estimated ejection fraction between 30-35%. The basal inferior segment is akinetic but no obvious valvular pathology was seen on the study She is advised that we will repeat an echocardiogram on her sometime this year but I would like her to work on getting her blood pressure under control first (4) Asthma exacerbation: Code(s): J45.901 - Unspecified asthma with (acute) exacerbation Qualifiers: Asthma severity: unspecified severity Asthma persistence: persistent Qualified Code(s): J45.901 - Unspecified asthma with (acute) exacerbation Plan: Will start her empirically on Azithromycin QD x 5 days Continue Flovent HFA 110 mcg 1 inhalation BID and Albuterol HFA 2 inhalations Q 6 hours PRN (5) Hemorrhagic gastritis: Code(s): K29.71 - Gastritis, unspecified, with bleeding Qualifiers: Gastritis type: unspecified gastritis Chronicity: chronic Qualified Code(s): K29.51 - Unspecified chronic gastritis with bleeding Plan: EGD done back in 2015 ([address] Llanos) evealed findings of hemorrhagic gastritis with a small hiatal hernia Reinforced dietary restrictions Continue Omeprazole 40 mg QD and Carafate 10 ml QID Follow up with GI as scheduled (6) Allergic rhinitis: Code(s): J30.9 - Allergic rhinitis, unspecified Qualifiers: Allergic rhinitis trigger: unspecified Allergic rhinitis seasonality: unspecified Qualified Code(s): J30.9 - Allergic rhinitis, unspecified Plan: Continue Fluticasone 50 mcg nasal spray QD PRN and Loratadine 10 mg QD PRN (7) Lumbar spondylosis: Code(s): M47.816 - Spondylosis without myelopathy or radiculopathy, lumbar region Plan: Reinforced activity and weight lifting restrictions Continue Ibuprofen 800 mg TID PRN for pain (8) Hearing loss: Code(s): H91.90 - Unspecified hearing loss, unspecified ear Qualifiers: Hearing loss type: unspecified Laterality: unspecified laterality Qualified Code(s): H91.90 - Unspecified hearing loss, unspecified ear Plan: She was seen by ENT last month (August 2023) and confirmed that she does have significant hearing loss but she is not at a point yet where she will require hearing aids Follow up with ENT as scheduled (9) Insomnia: Code(s): G47.00 - Insomnia, unspecified Qualifiers: Insomnia type: primary Qualified Code(s): F51.01 - Primary insomnia Plan: Sleep hygiene reinforced Used to take Rozerem but states that she is currently not taking anything for sleep (10) Anxiety: Code(s): F41.9 - Anxiety disorder, unspecified Plan: Was taking Citalopram 20 mg QD in the past but self-discontinued this at some point Follow up with psychiatry as scheduled (11) Smoker: Code(s): F17.200 - Nicotine dependence, unspecified, uncomplicated Plan: Counseled again on smoking cessation Plan Follow up in 3 months Medications: New losartan 100 mg PO DAILY 90 days 90 tabs 1RF cholecalciferol (vitamin D3) 50 mcg PO DAILY 90 days 90 caps 3RF E55.9 - Vitamin D deficiency, unspecified azithromycin take 500 mg today (day 1), then 250 mg for 4 days (days 2-5) PO 6 tabs 0RF Changed From carvedilol (Coreg) must administer with a meal/food 25 mg PO BID 60 tabs 2RF To carvedilol (Coreg) must administer with a meal/food 25 mg PO BID 90 days 180 tabs 1RF From amlodipine 10 mg PO DAILY 30 days 30 tabs 2RF To amlodipine 10 mg PO DAILY 90 days 90 tabs 1RF Coding Level of Care Code Est Pt Level 4 (98164) Diagnoses Essential hypertension I10 Vitamin D deficiency E55.9 QT prolongation R94.31 Exacerbation of persistent asthma, unspecified asthma severity J45.901 Asthma severity: unspecified severity Asthma persistence: persistent Chronic gastritis with bleeding, unspecified gastritis type K29.51 Gastritis type: unspecified gastritis Chronicity: chronic Allergic rhinitis, unspecified seasonality, unspecified trigger J30.9 Allergic rhinitis trigger: unspecified Allergic rhinitis seasonality: unspecified Lumbar spondylosis M47.816 Hearing loss, unspecified hearing loss type, unspecified laterality H91.90 Hearing loss type: unspecified Laterality: unspecified laterality Primary insomnia F51.01 Insomnia type: primary Anxiety F41.9 Smoker F17.200
== END 2023-09-21 10:41 | disposition home or self-care (01) ==
PROVIDERS: PCP Internal Medicine; Visit Provider Internal Medicine
DX: I10 Essential (primary) hypertension (principal); E55.9 Vitamin D deficiency, unspecified; R94.31 Abnormal electrocardiogram [ECG] [EKG]; J45.901 Unspecified asthma with (acute) exacerbation; K29.51 Unspecified chronic gastritis with bleeding; J30.9 Allergic rhinitis, unspecified; M47.816 Spondylosis without myelopathy or radiculopathy, lumbar region; H91.90 Unspecified hearing loss, unspecified ear; F51.01 Primary insomnia; F41.9 Anxiety disorder, unspecified; F17.200 Nicotine dependence, unspecified, uncomplicated
CPT/HCPCS: 99214

== ENCOUNTER 2023-10-02 13:25 | Observation (INO) | payer OTHER, SELFPAY ==
[2023-10-02] VITALS (10 sets, daily range): BP systolic 166–205; BP diastolic 75–106; PULSE 58–84; RESP 16–28; TEMP 36.2–36.9; O2SAT 97–99; BMI 27.4
--- NOTE | 2023-10-02 | ECG_ITS ---
Test Reason : chest pain Blood Pressure : / mmHG Vent. Rate : 079 BPM Atrial Rate : 079 BPM P-R Int : 128 ms QRS Dur : 076 ms QT Int : 380 ms P-R-T Axes : 012 051 036 degrees QTc Int : 435 ms Normal sinus rhythm Minimal voltage criteria for LVH, may be normal variant ( Sokolow-Issa ) Borderline ECG When compared with ECG of 10-APR-2022 11:48, T wave inversion no longer evident in Anterolateral leads QT has shortened Referred By: Generic ED Physician Electronically Signed By:RUDOLPH OVIEDO
--- NOTE | ~2023-10-02 | XR_ITS ---
EXAMINATION: XR CHEST CLINICAL INFORMATION: Chest pain COMPARISON: Chest radiograph 04/21/2021 TECHNIQUE: 2 views of the chest were obtained. FINDINGS: There is mild cardiac enlargement. No other significant abnormality is noted involving the lungs, mediastinum, bony thorax or soft tissues. Multiple surgical clips are present in the upper abdomen. XR/XR chest 2V IMPRESSION: Mild cardiomegaly. No acute intrathoracic disease.
--- NOTE | 2023-10-02 13:50 | ED_ITS ---
HPI - Chest Pain General Chief Complaint: Chest Pain Stated Complaint: Chest Pain 2 days Time Seen by Provider: 10/02/23 14:35 History of Present Illness HPI narrative: 53 y/o F patient; PMH uncontrolled HTN due to medication non-compliance, hypertensive cardiomyopathy; presents from home reporting two days of left-sided chest pain radiating into her left-sided neck and down her left-sided arm associated with nausea without vomiting, chills, and diaphoresis. She states it has been constant the last two days. Worse with exertion such as going up steps. It first started by waking her up from sleep with the pain. She did see her PCP one week ago. She states she was supposed to be on 13 medications but was not taking them reliably so her PCP changed her to D3, Carvedilol 25mg BID, and Losartan 100mg OD. She states she has been taking these as prescribed including this morning. Chart review shows patient followed by Dairy Technician Dr. Schultz, last seen in office 06/13/2022. At that time noted to have uncontrolled HTN due to non- compliance with medication and uncertainty regarding which anti-hypertensive medications patient was actually taking. ECHO 03/06/2022 with LVEF 30 - 35%, moderate global hypokinesis. Consistent with grade I diastolic dysfunction. The patient confirms that this visit and ECHO were her last follow up with cardiology she states I haven't been taking care of myself . Related Data Previous Rx's ?Medication ?Instructions ?Recorded blood pressure monitor #1 ea 07/12/21 DEPENDS Adult Pull ups (MEDIUM) #100 ea 02/17/22 sucralfate 100 mg/mL oral 10 ml PO QIDACHS 30 days #1,200 mL 02/22/22 suspension (Carafate) Ventolin HFA 90 mcg/actuation 2 puff inhalation Q6H PRN 06/02/22 aerosol inhaler (albuterol sulfate) shortness of breath or wheezing 30 days #18 grams fluticasone propionate 110 1 puff inhalation BID 30 days #12 09/13/22 mcg/actuation HFA aerosol inhaler grams (Flovent HFA) loratadine 10 mg capsule 10 mg PO DAILY PRN allergy 09/13/22 symptoms 90 days #90 caps loratadine 10 mg tablet 10 mg PO DAILY PRN allergy 09/13/22 symptoms 90 days #90 tabs cyanocobalamin (vitamin B-12) 1,000 mcg PO DAILY 90 days #90 tabs 12/12/22 1,000 mcg tablet tizanidine 4 mg tablet 4 mg PO Q8H PRN muscle spasms 30 02/06/23 days #90 tabs ibuprofen 800 mg tablet 800 mg PO TID PRN for pain #90 tabs 03/19/23 omeprazole 40 mg capsule,delayed 40 mg PO DAILY PRN Acid Reflux 90 03/28/23 release days #90 caps albuterol sulfate 90 mcg/actuation 2 puff PO QID PRN for wheezing #18 05/14/23 aerosol inhaler (Ventolin HFA) ea fluticasone propionate 50 2 spray intranasal DAILY PRN for 09/13/23 mcg/actuation nasal allergies #48 mL spray,suspension amlodipine 10 mg tablet 10 mg PO DAILY 90 days #90 tabs 09/21/23 azithromycin 250 mg tablet See Rx Instructions PO .COMPLEX #6 09/21/23 tabs carvedilol 25 mg tablet (Coreg) 25 mg PO BID 90 days #180 tabs 09/21/23 cholecalciferol (vitamin D3) 50 50 mcg PO DAILY 90 days #90 caps 09/21/23 mcg (2,000 unit) capsule losartan 100 mg tablet 100 mg PO DAILY 90 days #90 tabs 09/21/23 Allergies Allergy/AdvReac Type Severity Reaction Status Date / Time No Known Allergies Allergy Verified 10/02/23 13:46 [No Known Allergies*] Review of Systems 2 Review of Systems: Yes all other systems are reviewed and are negative PMFSH Past Medical History Attestation statement: The following information was validated with the patient. Source: old records reviewed Medical History Vitamin D deficiency Essential hypertension Overweight (BMI 25.0-29.9) Smoker Anxiety Insomnia Lumbar spondylosis Allergic rhinitis Hemorrhagic gastritis Asthma Surgical History History of sleeve gastrectomy Family History Family History Father No problems noted. Mother No problems noted. Social History Social History Housing: Apartment Alcohol intake: current Alcohol intake frequency: a few times a week Patient Tobacco Use Status: Current everyday Tobacco user Tobacco use type: Cigarette Cigarettes Per Day: 4 Smoked in Last 30 Days: Yes e-Cigarette/Vaping Use: Never Used Second Hand Smoke Exposure: Yes Use of substances other than those prescribed or required for medical reasons: No Substance Use Type: Crack/Cocaine Advance Directives: No Advance Directives Information Provided: No Do you have a plan to hurt others: No Plan service: No Current occupational status: disabled Cognitive needs: No Hearing needs: No Vision needs: No Physical Exam 2 Vital Signs: Vital Signs: Last Vital Signs Temp 98.0 F 10/02/23 16:10 Pulse 59 10/02/23 16:10 Resp 20 10/02/23 16:10 BP 182/87 H 10/02/23 16:10 Pulse Ox 98 10/02/23 16:10 O2 Del Method Room Air 10/02/23 16:10 BMI result Body Mass Index 27.4 Patient is afebrile, hypertensive, without tachycardia. Const: General: cooperative Orientation/consciousness: patient oriented x3 HEENT: Head: Yes normal to inspection Eyes: General: appearance normal, both eyes and all related structures P upils: Equal, round and reactive pupils present Neck: Neck: Yes normal visual inspection, Yes full ROM, Yes supple and No tender Chest: Chest palpation & inspection: normal inspection of the chest and normal palpation of entire chest wall Resp: Effort & Inspection: normal respiratory effort, able to speak in complete sentences, no cough and no respiratory distress Auscultation: clear to auscultation bilaterally Cardio: Rate: regular rate Rhythm: regular rhythm Peripheral pulses: P eripheral pulses 2+ throughout GI: Inspection: Yes normal to inspection, No Abdominal wall edema and No distended Palpation (GI): Soft to palpation, not firm, nontender, no guarding and not rigid Auscultation: normal bowel sounds Neuro: General: patient oriented x3 Cranial nerves: Yes Equal, round and reactive pupils present Course Course Course Narrative: RME performed by Bette Lemus PA-C. Patient is a 53 year old assigned female at presenting to the emergency department with chest pain. Patient states over the last 2 days she has had chest pain. Detailed physical exam and review of systems are deferred to the reel worker. EKG, Labs, imaging, and swabs ordered. Patient placed back in the waiting room pending room availability and results. Reevaluation(s) Reevaluation #1: Patient is afebrile and hypertensive. Reviewed triage work up - agree with plan. Ordered for dose of Nitroglycerin due to hypertension and chest pain. Reevaluation #2: Patient with continued chest pain and now associated nausea. Ordered for repeat EKG - unchanged compared to prior. Ordered for second dose of Nitroglycerin, Zofran 4mg IV, and ASA 324mg PO. Laboratory studies reviewed. No leukocytosis. Baseline Hgb. No transaminitis. Troponin 42.2. COVID/Flu/RSV negative. CXR unremarkable. Possible element of hypertensive urgency as patient's BP on arrival 205/88. However improved to 182/87. Would not further emergently lower at this time as patient has known chronic hypertension. Goal BP 180mmHg systolic. Plan: Admit to hospitalist for ACS work up. Believe patient will need repeat ECHO and possibly stress test. Condition: Stable Hospitalist requesting utox - ordered. Hospitalist requesting cardiology consult. Spoke with Dr. Schultz (Cardiology) who agreed with plan for admission. Medications Administered Discontinued Medications Generic Name Dose Route Start Last Admin Trade Name Freq PRN Reason Stop Dose Admin Aspirin 324 mg 10/02/23 16:08 10/02/23 16:34 Aspirin 81 Mg Tab.Chew PO 10/02/23 16:09 324 mg ONCE ONE Administration Nitroglycerin 0.4 mg 10/02/23 15:09 10/02/23 15:27 Nitroglycerin 0.4 Mg Tab.Subl SUBLINGUAL 10/02/23 15:10 0.4 mg ONCE ONE Administration Nitroglycerin 0.4 mg 10/02/23 16:26 10/02/23 16:34 Nitroglycerin 0.4 Mg Tab.Subl SUBLINGUAL 10/02/23 16:27 0.4 mg ONCE ONE Administration Ondansetron HCl 4 mg 10/02/23 16:26 10/02/23 16:34 Ondansetron Hcl 4 Mg/2 Ml Vial IVPUSH 10/02/23 16:27 4 mg ONCE ONE Administration Medical Decision Making Lab Data 10/02/23 14:56 10/02/23 14:56 Labs: Lab Results 10/02/23 Range/Units 14:56 WBC 7.2 (4.8-10.8) X10*3/uL RBC 4.60 (4.20-5.50) X10*6/uL Hgb 14.6 (12.0-16.0) g/dl Hct 41.3 (37.0-47.0) % MCV 89.8 (80.0-98.0) fL MCH 31.7 (27.0-33.0) pg MCHC 35.4 H (31.0-35.0) g/dl RDW 12.9 (11.0-16.0) % Plt Count TNP MPV TNP Immature Gran % (Auto) 0.3 (0.0-0.4) % Neut % (Auto) 73.2 H (45-73) % Lymph % (Auto) 21.1 (20-40) % [place] % (Auto) 4.4 (2-11) % Eos % (Auto) 0.6 (0-4) % Baso % (Auto) 0.4 (0-2) % Lymph # (Auto) 1.5 (1.2-4.9) X10*3/uL [place] # (Auto) 0.3 (0.1-1.2) X10*3/uL Eos # (Auto) 0.0 (0.0-0.4) X10*3/uL Baso # (Auto) 0.0 (0.0-0.2) X10*3/uL Abs Immat Gran (auto) 0.02 (0.00-0.03) X10*3/uL Absolute Neuts (auto) 5.3 (2.0-8.3) x10*3/uL Absolute Nucleated RBC 0.000 (0.0-0.012) X10*3/uL Nucleated RBC % (auto) 0.0 (0.0-0.2) /100WBC Smear Tech's Comments VERIFIED Sodium 141 (135-145) mmol/L Potassium 3.5 (3.3-5.1) mmol/L Chloride 109 H (96-108) mmol/L Carbon Dioxide 23 (22-29) mmol/L Anion Gap 13 (12-20) BUN 13 (9-16) mg/dL Creatinine 0.90 (0.5-1.4) mg/dL Estim Creat Clear Calc 62.6 Estimated GFR > 60 Random Glucose 111 (60-115) mg/dL Calcium 9.1 (8.4-10.2) mg/dL Magnesium 1.9 (1.6-2.6) mg/dL Total Bilirubin 0.6 (0.0-1.0) mg/dL AST 19 (5-31) U/L ALT 14 (0-31) U/L Alkaline Phosphatase 105 (39-117) U/L Troponin I High Sens 42.2 H (<3.5-17.0) ng/L Total Protein 7.1 (6.5-8.0) g/dL Albumin 3.9 (3.5-5.0) g/dL Lipase 41 (8-78) U/L Influenza Type A (PCR) NEGATIVE (Negative) Influenza Type B (PCR) NEGATIVE (Negative) RSV RNA Qual (PCR) NEGATIVE (Negative) SARS-CoV-2 RNA (RT-PCR) NEGATIVE (Negative) Radiology Impression Discussion of test interpretation with radiology: I have reviewed the radiologist's reading. Radiologist Impression: EXAMINATION: XR CHEST CLINICAL INFORMATION: Chest pain COMPARISON: Chest radiograph 04/21/2021 TECHNIQUE: 2 views of the chest were obtained. FINDINGS: There is mild cardiac enlargement. No other significant abnormality is noted involving the lungs, mediastinum, bony thorax or soft tissues. Multiple surgical clips are present in the upper abdomen. XR/XR chest 2V IMPRESSION: Mild cardiomegaly. No acute intrathoracic disease. Discharge Plan Discharge Patient Disposition: Admitted As Inpatient Prescriptions: No Action sucralfate [Carafate] 100 mg/mL suspension 10 ml PO QIDACHS 30 Days Qty: 1200 3RF albuterol sulfate [Ventolin HFA] 90 mcg/actuation HFA aerosol inhaler 2 puff inhalation Q6H PRN (Reason: shortness of breath or wheezing) 30 Days Qty: 18 5RF cyanocobalamin (vitamin B-12) 1,000 mcg tablet 1,000 mcg PO DAILY 90 Days Qty: 90 3RF ibuprofen 800 mg tablet 800 mg PO TID PRN (Reason: for pain) Qty: 90 5RF omeprazole 40 mg capsule,delayed release(DR/EC) 40 mg PO DAILY PRN (Reason: Acid Reflux) 90 Days Qty: 90 1RF albuterol sulfate [Ventolin HFA] 90 mcg/actuation HFA aerosol inhaler 2 puff PO QID PRN (Reason: for wheezing) Qty: 18 5RF fluticasone propionate 50 mcg/actuation spray,suspension 2 spray intranasal DAILY PRN (Reason: for allergies) Qty: 48 1RF Flovent HFA 110 mcg/actuation HFA aerosol inhaler 1 puff inhalation BID 30 Days Qty: 12 5RF loratadine 10 mg capsule 10 mg PO DAILY PRN (Reason: allergy symptoms) 90 Days Qty: 90 3RF loratadine 10 mg tablet 10 mg PO DAILY PRN (Reason: allergy symptoms) 90 Days Qty: 90 3RF (DME) blood pressure monitor Kit See Rx Instructions .Route Qty: 1 0RF Rx Instructions: As directed - use to monitor BP daily as instructed (DME) DEPENDS Adult Pull ups (MEDIUM) medium See Rx Instructions .Route .MEDSUPPLY Qty: 100 12RF Rx Instructions: As directed tizanidine 4 mg tablet 4 mg PO Q8H PRN (Reason: muscle spasms) 30 Days Qty: 90 0RF azithromycin 250 mg tablet See Rx Instructions PO .COMPLEX Qty: 6 0RF Rx Instructions: take 500 mg today (day 1), then 250 mg for 4 days (days 2-5) PO losartan 100 mg tablet 100 mg PO DAILY 90 Days Qty: 90 1RF amlodipine 10 mg tablet 10 mg PO DAILY 90 Days Qty: 90 1RF carvedilol [Coreg] 25 mg tablet 25 mg PO BID 90 Days Qty: 180 1RF Rx Instructions: must administer with a meal/food cholecalciferol (vitamin D3) 50 mcg (2,000 unit) capsule 50 mcg PO DAILY 90 Days Qty: 90 3RF Print Language: [place] Islander
--- NOTE | 2023-10-02 15:09 | ECG_ITS ---
Test Reason : CHEST PAIN Blood Pressure : / mmHG Vent. Rate : 057 BPM Atrial Rate : 057 BPM P-R Int : 132 ms QRS Dur : 086 ms QT Int : 470 ms P-R-T Axes : 016 057 070 degrees QTc Int : 457 ms Sinus bradycardia Moderate voltage criteria for LVH, may be normal variant ( Sokolow-Issa , [place] product ) Nonspecific ST and T wave abnormality Abnormal ECG When compared with ECG of 02-OCT-2023 13:39, Nonspecific T wave abnormality, worse in Lateral leads Referred By: Mae Dietrich Electronically Signed By:RUDOLPH OVIEDO
[2023-10-02 15:25] LABS: Eosinophils Percent Auto 0.6 % (0-4); Hematocrit 41.3 % (37.0-47.0); Hemoglobin 14.6 g/dl (12.0-16.0); Imm Gran Pct Auto 0.3 % (0.0-0.4); Lymphocytes Percent Auto 21.1 % (20-40); Mean Corpuscular HGB Conc 35.4 g/dl (31.0-35.0); Mean Corpuscular Hemoglobin 31.7 pg (27.0-33.0); Mean Corpuscular Volume 89.8 fL (80.0-98.0); Monocytes Percent Auto 4.4 % (2-11); Neutrophils Percent Auto 73.2 % (45-73); Red Cell Distribution Width 12.9 % (11.0-16.0)
[2023-10-02 15:26] LABS: Basophils Percent Auto 0.4 % (0-2); Imm Gran Abs Auto 0.02 X10*3/uL (0.00-0.03); Lymphocytes Absolute Auto 1.5 X10*3/uL (1.2-4.9); MANUAL DIFF FLAG SCAN; Monocytes Absolute Auto 0.3 X10*3/uL (0.1-1.2); Neutrophils Absolute Auto 5.3 x10*3/uL (2.0-8.3); PLT CLUMP 1; SCAN SMEAR FLAG 1
[2023-10-02] MEDS: Nitroglycerin 0.4 MG TAB.SUBL SUBLINGUAL ×2 (15:27→16:34)
[2023-10-02 15:31] LABS: Alanine Aminotransferase 14 U/L (0-31); Albumin Level 3.9 g/dL (3.5-5.0); Alkaline Phosphatase 105 U/L (39-117); Anion Gap 13 (12-20); Aspartate Amino Transferase 19 U/L (5-31); Bilirubin Total 0.6 mg/dL (0.0-1.0); Blood Urea Nitrogen 13 mg/dL (9-16); Calcium 9.1 mg/dL (8.4-10.2); Carbon Dioxide 23 mmol/L (22-29); Chloride 109 mmol/L (96-108); Creatinine Clr Calc Pharmacy 62.6; Estimated Glomerular Filt Rate > 60; Glucose Random 111 mg/dL (60-115); Lipase 41 U/L (8-78); Magnesium 1.9 mg/dL (1.6-2.6); Potassium 3.5 mmol/L (3.3-5.1); SLIDE REVIEW VERIFIED; Sodium 141 mmol/L (135-145); Total Protein 7.1 g/dL (6.5-8.0)
[2023-10-02 15:39] LABS: Troponin-I High Sensitivity 42.2 ng/L (<3.5-17.0)
[2023-10-02 15:40] LABS: White Blood Count 7.2 X10*3/uL (4.8-10.8)
[2023-10-02 15:51] LABS: Influenza A PCR NEGATIVE (Negative); Influenza B PCR NEGATIVE (Negative); Resp Syncy Virus RNA Qual PCR NEGATIVE (Negative); SARS COV2 PCR INHOUSE NEGATIVE (Negative)
--- NOTE | 2023-10-02 16:10 | PC.NURSE ---
pt is alert and oriented, skin appropriate for ethnicity, respirations even and unlabored, pt reports not feeling any better, still having the chest pain 5/10 on the left sided and now having nausea on top of if, which is new, normal sinus on the monitor
[2023-10-02] MEDS: Aspirin 81 MG TAB.CHEW 324 MG PO (16:34)
[2023-10-02] MEDS: ondansetron HCL 4 MG/2 ML VIAL IVPUSH (16:34)
[2023-10-02 17:36] LABS: Troponin-I High Sensitivity 39.2 ng/L (<3.5-17.0)
--- NOTE | 2023-10-02 17:53 | PHA.MEDREC ---
Pharmacy Consult ? Medication Reconciliation Pharmacy has completed the medication reconciliation.Patient stated she saw her doctor within the past few weeks and she stated she was not taking her medications correctly before then so the Doctor decided to discontinue her at home medications except the vitamin D-3 softgel caps, the losaratan 100mg tab and the carvedilol 25mg tab and slowly re-introduce the other necessary ones she needs,
--- NOTE | 2023-10-02 18:11 | PM.IMHP ---
History of Present Illness Date of Service: 10/02/23 Chief Complaint: chest pain 53yo F with HTN, HFrEF [EF 30-35% 03/06/22] and asthma who woke up this morning with chest pressure radiating up to her left jaw and the back of her head. No exertional worsening of the pain. No dyspnea but endorses diaphoresis and nausea. She says the pain was actually present last night and came on at rest. Currently on just losartan and carvedilol but previously on many more medications; the current regimen was prescribed by her PCP last week. She sees banana grader Dr Schultz and has noted to have issues with medication compliance. Denies diabetes, CAD, or CVA. She arrived in the ED with BP 205/88 and was given aspirin and nitroglycerin. Currently BP is 166/75 and chest pain has mostly resolved, with just some residual chest pressure. EKG with sinus braycardia and LVH. Hs-Tn-I 42.2; repeat after 2hr 39.2. History of cocaine use but denies any recent use. Review of Systems Review of Systems: Yes all other systems are reviewed and are negative FOR[facility]LY [facility], [facility] Medical History Vitamin D deficiency Essential hypertension Overweight (BMI 25.0-29.9) Smoker Anxiety Insomnia Lumbar spondylosis Allergic rhinitis Hemorrhagic gastritis Asthma Family History Father No problems noted. Mother No problems noted. Surgical History History of sleeve gastrectomy Social History Housing: Apartment Alcohol intake: current Alcohol intake frequency: a few times a week Patient Tobacco Use Status: Current everyday Tobacco user Tobacco use type: Cigarette Cigarettes Per Day: 4 Smoked in Last 30 Days: Yes e-Cigarette/Vaping Use: Never Used Second Hand Smoke Exposure: Yes Use of substances other than those prescribed or required for medical reasons: No Substance Use Type: Crack/Cocaine Advance Directives: No Advance Directives Information Provided: No Do you have a plan to hurt others: No Plan service: No Current occupational status: disabled Cognitive needs: No Hearing needs: No Vision needs: No Meds Allergies Allergy/AdvReac Type Severity Reaction Status Date / Time No Known Allergies Allergy Verified 10/02/23 13:46 [No Known Allergies*] Active Medications: Current Medications Acetaminophen (Acetaminophen 325 Mg Tablet) 650 mg PO Q6H PRN PRN Reason: Pain, Mild (Pain Scale 1-3) Enoxaparin Sodium (Enoxaparin Sodium 40 Mg/0.4 Ml Syringe) 40 mg SUBCUT Q24H YUE Ondansetron HCl (Ondansetron Hcl 4 Mg/2 Ml Vial) 4 mg IVPUSH Q8H PRN PRN Reason: Nausea and Vomiting Sodium Chloride (0.9 % Sodium Chloride Flush 3 Ml Syringe) 3 ml IVFLUSH QSHIFT YEU Physical Exam Vital Signs and Narrative: Vital Signs: Last Vital Signs Temp 98.0 F 10/02/23 16:10 Pulse 58 10/02/23 17:17 Resp 18 10/02/23 17:17 BP 166/75 H 10/02/23 17:17 Pulse Ox 98 10/02/23 16:10 O2 Del Method Room Air 10/02/23 16:10 BMI result Body Mass Index 27.4 Gen: in no acute distress HEENT: sclera anicteric, moist mucus membranes Neck: supple Lungs: clear to auscultation bilaterally Heart: regular rate and rhythm, no murmurs Abd: soft, non-tender, non-distended Ext: no edema Skin: warm/well-perfused Neuro: alert and oriented x3, no focal findings Psych: appropriate affect Results Labs 10/02/23 14:56 10/02/23 14:56 Labs: Laboratory Results - last 24 hr 10/02/23 10/02/23 14:56 16:58 MCV 89.8 MCH 31.7 MCHC 35.4 H RDW 12.9 Plt Count TNP MPV TNP Immature Gran % (Auto) 0.3 Neut % (Auto) 73.2 H Lymph % (Auto) 21.1 [place] % (Auto) 4.4 Eos % (Auto) 0.6 Baso % (Auto) 0.4 Lymph # (Auto) 1.5 [place] # (Auto) 0.3 Eos # (Auto) 0.0 Baso # (Auto) 0.0 Abs Immat Gran (auto) 0.02 Absolute Neuts (auto) 5.3 Absolute Nucleated RBC 0.000 Nucleated RBC % (auto) 0.0 Smear Tech's Comments VERIFIED Anion Gap 13 Estim Creat Clear Calc 62.6 Estimated GFR > 60 Random Glucose 111 Calcium 9.1 Magnesium 1.9 Total Bilirubin 0.6 AST 19 ALT 14 Alkaline Phosphatase 105 Troponin I High Sens 42.2 H 39.2 H Total Protein 7.1 Albumin 3.9 Lipase 41 Influenza Type A (PCR) NEGATIVE Influenza Type B (PCR) NEGATIVE RSV RNA Qual (PCR) NEGATIVE SARS-CoV-2 RNA (RT-PCR) NEGATIVE Imaging Radiologist's Impressions: Impressions Chest X-Ray 10/02/23 14:15 IMPRESSION: Mild cardiomegaly. No acute intrathoracic disease. Assessment and Plan (1) Chest pain: Status: Acute (2) Hypertension: Status: Acute Plan 53yo F with HTN, HFrEF [EF 30-35% 03/06/22] and asthma presenting with chest pain, questionable medication compliance, and history [though denies recent] of cocaine use. Found to have indeterminate-level troponins. Chest pain mostly improved but not entirely gone after nitrates. NSTEMI - Doubt ACS, likely type 2 due to uncontrolled HTN. Admit to telemetry on observation, resume antihypertensives, give ASA + atorvastatin, check lipid panel + A1c, consult Cardiology. Check Utox. HTN - Resume carvedilol and losartan; add other agents as needed to control BP VTE ppx - LMWH dispo - eventually home code - full Quality Stroke Does the patient have a stroke diagnosis?: No VTE Prior VTE?: No VTE Risk Level:: Medical - moderate - high VTE Device Contraindication: N/A - Device Ordered VTE Drug Contraindication: N/A - Med Ordered
[2023-10-02] MEDS: Enoxaparin Sodium 40 MG/0.4 ML SYRINGE SUBCUT (18:31)
[2023-10-02] MEDS: Atorvastatin Calcium 40 MG TABLET PO (21:57)
[2023-10-02] MEDS: carvediloL 25 MG TABLET PO (21:57)
[2023-10-02] MEDS: Acetaminophen 325 MG TABLET 650 MG PO (21:57)
--- NOTE | 2023-10-02 22:00 | PC.NURSE ---
This headline writer assumed care of this Pt at 1900. Pt A&Ox3, primarily Pashto speaking, reports 5/10 left sided CP. Pt ambulated independently with steady gait to BR.
[2023-10-03] VITALS (10 sets, daily range): BP systolic 125–177; BP diastolic 60–86; PULSE 53–66; RESP 12–20; TEMP 36.2–36.8; O2SAT 95–98; BMI 28.0
[2023-10-03] MEDS: 0.9 % Sodium Chloride Flush 3 ML SYRINGE IVFLUSH ×4 (00:50→20:32)
[2023-10-03 05:44] LABS: Cholesterol 139 mg/dL (<200); HDL Cholesterol 65 mg/dL (>40); LDL Cholesterol Calculated 61 mg/dL (<100); Triglycerides 67 mg/dL (<150)
[2023-10-03 05:47] LABS: B Type Natriuretic Peptide 193 pg/mL (<100)
--- NOTE | 2023-10-03 05:54 | MHC.EDTECH ---
pt resting in bed no issues noted. call ndiaye within reach. pt given another blanket
--- NOTE | 2023-10-03 07:00 | CA_ITS ---
Transthoracic Echocardiogram Patient (Last, First, Middle): Kourtney Hubbard I Gender: Female Date of : 1970 Age: 53 Procedure Date: 10/03/2023 Procedure Type: Transthoracic Echocardiogram Location: [facility] [place] [facility] [place] Height: 154.94 cm Weight: 67.13 kg BSA: 1.66 m2 Heart Rate: bpm BP: 149 / 74 mmHg Barrel Header: Referring MD: Malcolm Schultz MD Symptoms: chest pain Study Quality: Adequate ECG Rhythm: Sinus Conclusions: - The left ventricular systolic function is moderately decreased. The calculated ejection fraction is 36% by biplane method. - No obvious valvular pathology seen on this study. Findings Procedure Information Contrast agent, definity, is being given per protocol without apparent complications. Left Ventricle Normal left ventricular cavity size. There is moderately increased left ventricular wall thickness. The left ventricular systolic function is moderately decreased. The calculated ejection fraction is 36% by biplane method. There is moderate global hypokinesis. Evidence suggests grade I (mild) diastolic dysfunction. Right Ventricle Normal right ventricular cavity size and systolic function. Atria Both atria are normal in size. Aortic Valve The aortic valve was not well visualized. There is no aortic valve stenosis. There is no aortic valve regurgitation. Mitral Valve The mitral valve appears normal. There is trace mitral valve regurgitation. There is no mitral valve stenosis. Pulmonic Valve The pulmonic valve is likely normal. Tricuspid Valve There is trace tricuspid valve regurgitation. There is no evidence of pulmonary hypertension. Great Vessels The asc aorta is normal in size. Venous The inferior vena cava is normal in size and collapses greater than 50% with inspiration. Pericardium/Pleural There is no evidence of pericardial effusion. Prior Study Comparison No significant change compared to prior study dated: 03/06/2022. Recommendations, Care & Conclusions No obvious valvular pathology seen on this study. Measurements 2D Linear Measurements IVSd: 1.30 0.6-0.9/0.6-1.0 cm LVIDd: 4.87 3.9-5.3/4.2-5.9 cm LVIDd Index: 2.93 2.4-3.2/2.2-3.1 cm/m2 LVIDs: 3.62 2.0-3.6 cm LVPWd: 1.32 0.7-1.1 cm Ao Root: 2.50 2.1-3.5 cm LA Diam: 4.20 2.7-3.8/3.0-4.0 cm LAIDs Index: 2.53 1.5-2.3 cm/m2 LV Mass: 316.88 67-162/88-224 g LV Mass Index: 190.89 43-95/49-115 g/m2 LVOT Diam: 2.10 3.0+(-)1.3 cm 2D Systolic Function EF 4C: 36.30 >55% EF 2C: 40.60 >55% EF BiP: 35.70 >55% Mitral Valve MV Pk E: 0.80 MV PK A: 0.96 MV Decel Time: 276.00 E/A: 0.80 E'Lateral: 4.90 E'Medial: 4.24 E/E' Med: 18.90 E/E' Lat: 16.40 PHT: 81.00 MVA PHT: 2.72 Decel [place]: 2.90 Aortic Valve AoV Pk Shawn: 1.62 AoV Pk Grad: 10.00 LVOT LVOT Pk Shawn: 0.89 LVOT Mn Shawn: 0.61 LVOT VTI: 0.19 LVOT Pk Grad: 3.00 LVOT Mn Grad: 2.00 LVOT Diam: 2.10 LVOT Area: 3.46 Diastolic Function MV Pk E: 0.80 MV Pk A: 0.96 E/A: 0.80 E'Medial: 4.24 E/E' Med: 18.90 E' Laterial: 4.90 E/E' Lat: 16.40 Right Ventricle TAPSE (mm): 22.00 TVS' Shawn: 12.00 Tricuspid Valve TR Pk Shawn: 1.56 TR Pk Grad: 10.00 RA Press: 3.00 RVSP: 13.00 Great Vessels Aorta Ao Root-2D: 2.50 2.0-3.7 cm Ao Asc: 3.00 2.1-3.4 cm Pulmonary Valve PV Pk Shawn: 0.99 Peak PV Grad: 4.00 Updated in Other Vendor System with Status of Final Malcolm Schultz MD electronically signed on 10/03/2023 5:20:14 PM with status of Final
[2023-10-03 07:26] LABS: Estimated Average Glucose 94 mg/dL; Hemoglobin A1c % 4.9 % (<6.0)
[2023-10-03] MEDS: carvediloL 25 MG TABLET PO (09:12)
[2023-10-03] MEDS: Losartan Potassium 50 MG TABLET 100 MG PO (09:13)
[2023-10-03] MEDS: Cholecalciferol (Vitamin D3) 25 MCG TABLET 50 MCG PO (09:13)
[2023-10-03] MEDS: Aspirin 81 MG TAB.CHEW PO (09:13)
--- NOTE | 2023-10-03 09:52 | P.CONCA_ITS ---
History of Present Illness History of Present Illness Date of Service: 10/03/23 Chief complaint: chest pain, elevated troponin Narrative: This is a cardiology consultation regarding chest pain and high blood pressure. We have seen in the clinic in the past. Patient has a long history of noncompliance. She has hypertension that is not well controlled and she has had blood pressures very much in the 200s in the past. She also has a cardiomyopathy based on a prior echocardiogram. However, has not had any ischemic workup. Per the last note from PCP from few days ago, it seems that she has not taken any meds for a while. This is based on the treatment log. Hence it seems that he started on combination of carvedilol, losartan, amlodipine. Patient claims to have taken all these medications over the last few days but presents with chest pain and a pressures well above the 200 range and hence she is admitted. Currently, she still has some nonspecific discomfort in the chest. Not clear what that is. Review of Systems 2 Review of Systems: Yes all other systems are reviewed and are negative Constitutional: Constitutional: Reports as per HPI and Reports no additional constitutional complaints Eyes: Eyes: Reports as per HPI and Denies no additional eye complaints ENT: Denies system reviewed and no additional complaints, except as documented and Reports as per HPI Cardiovascular: Cardiovascular: Reports as per HPI, Reports no additional cardiovascular complaints, Denies acrocyanosis, Denies cool extremities, Reports chest pain, Denies leg edema, Denies lightheadedness, Denies palpitations and Denies dyspnea Respiratory: Respiratory: Reports as per HPI, Denies no additional respiratory complaints and Denies dyspnea Gastrointestinal: Gastrointestinal: Reports as per HPI and Denies no additional gastrointestinal complaints Genitourinary: Genitourinary: Reports as per HPI Musculoskeletal: Musculoskeletal: Reports no additional musculoskeletal complaints and Reports as per HPI Integumentary/Breasts: Skin/Breast: Reports system reviewed and no additional complaints, except as docu Neurologic: Reports system reviewed and no additional complaints, except as documented and Reports as per HPI Psychiatric: Psychiatric: Reports no additional psychiatric complaints and Reports as per HPI Endocrine: Endocrine: Reports no additional endocrine complaints, Reports as per HPI and Denies palpitations Hematologic/Lymphatic: Hematologic/Lymphatic: Reports no additional hematologic/lymphatic complaints and Reports as per HPI Allergic/Immunologic: Allergic/Immunologic: Reports no additional allergic/immunologic complaints and Reports as per HPI [facility] Past Medical History Medical History (Updated 10/03/23 @ 09:57 by Malcolm Schultz MD) Vitamin D deficiency Essential hypertension Overweight (BMI 25.0-29.9) Smoker Anxiety Insomnia Lumbar spondylosis Allergic rhinitis Hemorrhagic gastritis Asthma Family History Family History Father No problems noted. Mother No problems noted. Surgical History Surgical History History of sleeve gastrectomy Social History Social History Housing: Apartment Alcohol intake: current Alcohol intake frequency: a few times a week Patient Tobacco Use Status: Current someday Tobacco user Tobacco use type: Cigarette Cigarettes Per Day: 4 Smoked in Last 30 Days: Yes e-Cigarette/Vaping Use: Never Used Second Hand Smoke Exposure: Yes Use of substances other than those prescribed or required for medical reasons: No Substance Use Type: Crack/Cocaine Advance Directives: No Advance Directives Information Provided: No Do you have a plan to hurt others: No Plan Nutrition Risks: No Nutritional Risk service: No Current occupational status: disabled Cognitive needs: No Hearing needs: No Vision needs: No Meds Allergies Allergy/AdvReac Type Severity Reaction Status Date / Time No Known Allergies Allergy Verified 10/02/23 13:46 [No Known Allergies*] Active Medications: Current Medications Acetaminophen (Acetaminophen 325 Mg Tablet) 650 mg PO Q6H PRN PRN Reason: Pain, Mild (Pain Scale 1-3) Last Admin: 10/02/23 21:57 Dose: 650 mg Aspirin (Aspirin 81 Mg Tab.Chew) 81 mg PO DAILY [facility] Last Admin: 10/03/23 09:13 Dose: 81 mg Atorvastatin Calcium (Atorvastatin Calcium 40 Mg Tablet) 40 mg PO BEDTIME [facility] Last Admin: 10/02/23 21:57 Dose: 40 mg Carvedilol (Carvedilol 25 Mg Tablet) 25 mg PO BID [facility]; Protocol Last Admin: 10/03/23 09:12 Dose: 25 mg Enoxaparin Sodium (Enoxaparin Sodium 40 Mg/0.4 Ml Syringe) 40 mg SUBCUT Q24H [facility] Last Admin: 10/02/23 18:31 Dose: 40 mg Losartan Potassium (Losartan Potassium 50 Mg Tablet) 100 mg PO DAILY [facility]; Protocol Last Admin: 10/03/23 09:13 Dose: 100 mg Ondansetron HCl (Ondansetron Hcl 4 Mg/2 Ml Vial) 4 mg IVPUSH Q8H PRN PRN Reason: Nausea and Vomiting Sodium Chloride (0.9 % Sodium Chloride Flush 3 Ml Syringe) 3 ml IVFLUSH QSHIFT [facility] Last Admin: 10/03/23 09:13 Dose: 3 ml Vitamin D (Cholecalciferol (Vitamin D3) 25 Mcg Tablet) 50 mcg PO DAILY [facility] Last Admin: 10/03/23 09:13 Dose: 50 mcg Physical Exam 2 Vital Signs: Vital Signs: Last Vital Signs Temp 97.5 F 10/03/23 07:56 Pulse 66 10/03/23 09:12 Resp 16 10/03/23 07:56 BP 149/74 H 10/03/23 09:13 Pulse Ox 97 10/03/23 07:56 O2 Del Method Room Air 10/03/23 07:56 BMI result Body Mass Index 27.4 Const: General: comfortable and no acute distress O rientation/consciousness: patient oriented x3 HEENT: Other: Unremarkable Head: Yes normal to inspection Neck: Neck: Yes normal visual inspection Chest: Chest palpation & inspection: normal inspection of the chest Resp: Auscultation: clear to auscultation bilaterally Cardio: Palpation: normal PMI Heart sounds: S1 normal heart sound present, S2 normal heart sound present, no gallops, no murmurs and no rubs GI: Palpation (GI): Soft to palpation Back/Spine/Pelvis: Other: unremarkable Skin: General skin exam: no rashes or lesions noted Neuro: General: patient oriented x3 Extrem: General: Yes normal to inspection Psych: Mental Status: mental status grossly normal Objective Labs and Meds 10/02/23 14:56 10/02/23 14:56 Lab results: Laboratory Results - last 24 hr 10/02/23 10/02/23 10/03/23 14:56 16:58 04:43 WBC 7.2 RBC 4.60 Hgb 14.6 Hct 41.3 MCV 89.8 MCH 31.7 MCHC 35.4 H RDW 12.9 Plt Count TNP MPV TNP Immature Gran % (Auto) 0.3 Neut % (Auto) 73.2 H Lymph % (Auto) 21.1 [place] % (Auto) 4.4 Eos % (Auto) 0.6 Baso % (Auto) 0.4 Lymph # (Auto) 1.5 [place] # (Auto) 0.3 Eos # (Auto) 0.0 Baso # (Auto) 0.0 Abs Immat Gran (auto) 0.02 Absolute Neuts (auto) 5.3 Absolute Nucleated RBC 0.000 Nucleated RBC % (auto) 0.0 Smear Tech's Comments VERIFIED Sodium 141 Potassium 3.5 Chloride 109 H Carbon Dioxide 23 Anion Gap 13 BUN 13 Creatinine 0.90 Estim Creat Clear Calc 62.6 Estimated GFR > 60 Random Glucose 111 Estimat Average Glucose 94 Hemoglobin A1c % 4.9 Calcium 9.1 Magnesium 1.9 Total Bilirubin 0.6 AST 19 ALT 14 Alkaline Phosphatase 105 Troponin I High Sens 42.2 H 39.2 H B-Natriuretic Peptide 193 H Total Protein 7.1 Albumin 3.9 Triglycerides 67 Cholesterol 139 LDL Cholesterol, Calc 61 HDL Cholesterol 65 Lipase 41 Influenza Type A (PCR) NEGATIVE Influenza Type B (PCR) NEGATIVE RSV RNA Qual (PCR) NEGATIVE SARS-CoV-2 RNA (RT-PCR) NEGATIVE ECG Interpretation: EKG with sinus rhythm at 79/Min; voltage criteria for LVH; normal [place] and corrected QT. Compared to prior EKG from 2021, the T inversions in the anterior/anterolateral leads are not seen. Imaging Radiologist's impression: Impressions Chest X-Ray 10/02/23 14:15 IMPRESSION: Mild cardiomegaly. No acute intrathoracic disease. Assessment and Plan (1) Hypertensive emergency: Status: Acute (2) Elevated troponin: Status: Acute Plan Initial blood pressure was 205/88 mm Hg. Most recently 149/74 mm Hg the same. High sensitivity troponin levels are 42.2 and 39.2. Echocardiogram from 2021 with LVEF of 30-35%. Basal inferior akinesis. Overall, poorly controlled hypertension mainly from noncompliance with evidence of cardiomyopathy. Elevated troponins suggest some degree of myocardial injury from the uncontrolled pressures. Current meds are carvedilol 25 mg b.i.d., losartan 100 mg daily and the blood pressure seems fairly reasonable. This actually indicates that she has probably not taking her meds at home. Otherwise, she is also on aspirin and some statins. With regard to the chest pain, could be all from high blood pressure. Underlying coronary disease also a possibility. We can repeat echocardiogram for evaluation. At some point, myocardial perfusion imaging study. Again even if there is an issue and she needs interventions, with poor compliance there would be more problems. Hence still compliance and taking medications as advised still the primary recommendation. Discussed with Dr. White. Procedures Date of Service Date of Service: 10/03/23
--- NOTE | 2023-10-03 12:04 | P.PNIM_ITS ---
Subjective Subjective Date of Service: 10/03/23 Interval History: BP improved Nausea resolved Still having chest pressure, about 4/10 in intensity Review of Systems Review of Systems: Yes all other systems are reviewed and are negative Physical Exam 2 Vital Signs: Vital Signs: Last Vital Signs Temp 97.8 F 10/03/23 11:31 Pulse 53 10/03/23 11:31 Resp 18 10/03/23 11:31 BP 132/60 10/03/23 11:31 Pulse Ox 96 10/03/23 11:31 O2 Del Method Room Air 10/03/23 11:31 BMI result Body Mass Index 28.0 Gen: in no acute distress HEENT: sclera anicteric, moist mucus membranes Neck: supple Lungs: clear to auscultation bilaterally Heart: regular rate and rhythm, no murmurs Abd: soft, non-tender, non-distended Ext: no edema Skin: warm/well-perfused Neuro: alert and oriented x3, no focal findings Psych: appropriate affect Objective Data Active Medications Acetaminophen (Acetaminophen 325 Mg Tablet) 650 mg PO Q6H PRN PRN Reason: Pain, Mild (Pain Scale 1-3) Last Admin: 10/02/23 21:57 Dose: 650 mg Documented By: YENY Aspirin (Aspirin 81 Mg Tab.Chew) 81 mg PO DAILY [facility] Last Admin: 10/03/23 09:13 Dose: 81 mg Documented By: LILLIAN Atorvastatin Calcium (Atorvastatin Calcium 40 Mg Tablet) 40 mg PO BEDTIME [facility] Last Admin: 10/02/23 21:57 Dose: 40 mg Documented By: YENY Carvedilol (Carvedilol 25 Mg Tablet) 25 mg PO BID [facility]; Protocol Last Admin: 10/03/23 09:12 Dose: 25 mg Documented By: LILLIAN Enoxaparin Sodium (Enoxaparin Sodium 40 Mg/0.4 Ml Syringe) 40 mg SUBCUT Q24H [facility] Last Admin: 10/02/23 18:31 Dose: 40 mg Documented By: JAVI Losartan Potassium (Losartan Potassium 50 Mg Tablet) 100 mg PO DAILY [facility]; Protocol Last Admin: 10/03/23 09:13 Dose: 100 mg Documented By: LILLIAN Nitroglycerin (Nitroglycerin 0.1 Mg Patch.Td24) 0.1 mg TRANSDERMA DAILY [facility]; Protocol Ondansetron HCl (Ondansetron Hcl 4 Mg/2 Ml Vial) 4 mg IVPUSH Q8H PRN PRN Reason: Nausea and Vomiting Sodium Chloride (0.9 % Sodium Chloride Flush 3 Ml Syringe) 3 ml IVFLUSH QSHIFT [facility] Last Admin: 10/03/23 09:13 Dose: 3 ml Documented By: LILLIAN Vitamin D (Cholecalciferol (Vitamin D3) 25 Mcg Tablet) 50 mcg PO DAILY [facility] Last Admin: 10/03/23 09:13 Dose: 50 mcg Documented By: LILLIAN Labs 10/02/23 14:56 10/02/23 14:56 Labs: Laboratory Results - last 24 hr 10/02/23 10/02/23 10/03/23 14:56 16:58 04:43 MCV 89.8 MCH 31.7 MCHC 35.4 H RDW 12.9 Plt Count TNP MPV TNP Immature Gran % (Auto) 0.3 Neut % (Auto) 73.2 H Lymph % (Auto) 21.1 [place] % (Auto) 4.4 Eos % (Auto) 0.6 Baso % (Auto) 0.4 Lymph # (Auto) 1.5 [place] # (Auto) 0.3 Eos # (Auto) 0.0 Baso # (Auto) 0.0 Abs Immat Gran (auto) 0.02 Absolute Neuts (auto) 5.3 Absolute Nucleated RBC 0.000 Nucleated RBC % (auto) 0.0 Smear Tech's Comments VERIFIED Anion Gap 13 Estim Creat Clear Calc 62.6 Estimated GFR > 60 Random Glucose 111 Estimat Average Glucose 94 Hemoglobin A1c % 4.9 Calcium 9.1 Magnesium 1.9 Total Bilirubin 0.6 AST 19 ALT 14 Alkaline Phosphatase 105 Troponin I High Sens 42.2 H 39.2 H B-Natriuretic Peptide 193 H Total Protein 7.1 Albumin 3.9 Triglycerides 67 Cholesterol 139 LDL Cholesterol, Calc 61 HDL Cholesterol 65 Lipase 41 Influenza Type A (PCR) NEGATIVE Influenza Type B (PCR) NEGATIVE RSV RNA Qual (PCR) NEGATIVE SARS-CoV-2 RNA (RT-PCR) NEGATIVE Assessment and Plan (1) Hypertensive emergency: Status: Acute Plan d2 53yo F with HTN, HFrEF [EF 30-35% 03/06/22] and asthma presenting with chest pain, questionable medication compliance, and history [though denies recent] of cocaine use. Found to have indeterminate-level troponins. Chest pain improves but persists. troponin elevation - Doubt ACS, likely type 2 due to uncontrolled HTN. Cardiology consulted, TTE pending, may need inpt stress test. Check Utox. Continue + atorvastatin. HTN - Resumed carvedilol and losartan; add other agents as needed to control BP; concern of noncompliance. VTE ppx - LMWH dispo - eventually home code - full Total time managing care of this patient today: 35 minutes. Quality Stroke Does the patient have a stroke diagnosis?: No VTE Prior VTE?: No VTE Risk Level:: Medical - moderate - high VTE Device Contraindication: N/A - Device Ordered VTE Drug Contraindication: N/A - Med Ordered
[2023-10-03] MEDS: Nitroglycerin 0.1 MG PATCH.TD24 TRANSDERMA (12:09)
--- NOTE | 2023-10-03 12:42 | MHC.CM.PN ---
CM met with Patient at bedside and addressed MAYA with her, providing Patient with the original and a copy has been placed on the chart. Patient lives alone in an apartment and she uses a walker to assist with mobility. Patient has a [employer] 14 hours/week and home/resume said services is the goal CM has initiated and will follow for dc planning.PCP is Dr. Tanvir Nguyen.
--- NOTE | 2023-10-03 13:02 | PC.NURSE ---
Pt arrived from ED on stretcher approx 1015. A&OX4 speech clear. MELCHOR to command with mild weakness, +pp bilat no edema noted. Denies headache, dizziness, c/o left eye blurriness pupils PERRL 2B. LSCTA denies shortness of breath, SB on tele. Continues to c/o pain to left chest radiating to shoulder and left neck 5/10 per pt improved from previous. BS+X4 abdomen soft non-tender denies nausea/vomiting at this time. VSS. Pressure 130's per Dr Cindy pinzon to give nitro patch. Pt resting in bed. Bed alarm and lowest locked position for safety
[2023-10-03] MEDS: ondansetron HCL 4 MG/2 ML VIAL IVPUSH (13:13)
--- NOTE | 2023-10-03 13:25 | PC.NURSE ---
Pt c/o nausea/vomiting approx 1315 after attempting to eat meal. VSS pressure in 140's systolic. Zofran given. Pt continues to c/o blurry vision to left eye ongoing since admission when right eye covered pt states cannot see much from left. Dr White notified.
[2023-10-03] MEDS: Enoxaparin Sodium 40 MG/0.4 ML SYRINGE SUBCUT (18:38)
[2023-10-03] MEDS: Acetaminophen 325 MG TABLET 650 MG PO (18:38)
[2023-10-03] MEDS: Atorvastatin Calcium 40 MG TABLET PO (20:32)
[2023-10-03] MEDS: Acetaminophen 325 MG TABLET 975 MG PO (23:54)
[2023-10-03] MEDS: amLODIPine Besylate 5 MG TABLET PO (23:55)
--- NOTE | 2023-10-04 | ECG_ITS ---
Test Reason : Chest pain Blood Pressure : / mmHG Vent. Rate : 058 BPM Atrial Rate : 058 BPM P-R Int : 134 ms QRS Dur : 086 ms QT Int : 414 ms P-R-T Axes : 031 064 057 degrees QTc Int : 406 ms Sinus bradycardia Minimal voltage criteria for LVH, may be normal variant ( Sokolow-Issa ) ST & T wave abnormality, consider lateral ischemia Abnormal ECG When compared with ECG of 02-OCT-2023 16:04, T inversions in anterolateral leads Referred By: Joy Candelario Electronically Signed By:RUDOLPH OVIEDO
[2023-10-04 00:34] LABS: Amphetamine Screen Urine Not Detected (Not Detect); Barbiturates, Urine Not Detected (Not Detect); Benzodiazepines Screen Urine Not Detected (Not Detect); Buprenorphine Scr Not Detected (Not Detect); Cannabinoid Screen Urine Not Detected (Not Detect); Cocaine Screen Urine POSITIVE (Not Detect); Fentanyl, urine Not Detected (Not Detect); Methadone Screen, Urine Not Detected (Not Detect); Opiate Screen Urine Not Detected (Not Detect); Oxycodone Screen Urine Not Detected (Not Detect); Phencyclidine Screen Urine Not Detected (Not Detect)
[2023-10-04] MEDS: Ketorolac Tromethamine 15 MG/ML VIAL IVPUSH (00:53)
--- NOTE | 2023-10-04 01:34 | PC.NURSE ---
Pt c/o 6/10 headache and 7/10 left side chest pain/pressure that is radiating to left upper back, pt BP 177/84. Dr Paris notified - Tylenol dose adjusted and administered for headache, amlodipine administered for elevated BP. EKG ordered and completed, toradol administered for chest pain. Drug screen also completed and Dr Paris aware of results. No changes noted on tele, pt is SR/ST with HR 50-70s.
[2023-10-04 03:34] VITALS: BP 146/70; PULSE 53; RESP 18; TEMP 36.6; O2SAT 96
[2023-10-04 06:54] LABS: Troponin-I High Sensitivity 29.9 ng/L (<3.5-17.0)
[2023-10-04 07:40] VITALS: BP 144/71; PULSE 62; RESP 18; TEMP 36.1; O2SAT 96
[2023-10-04 09:43] VITALS: BP 144/71
[2023-10-04] MEDS: Aspirin 81 MG TAB.CHEW PO (09:43)
[2023-10-04] MEDS: Losartan Potassium 50 MG TABLET 100 MG PO (09:43)
[2023-10-04] MEDS: 0.9 % Sodium Chloride Flush 3 ML SYRINGE IVFLUSH (09:43)
[2023-10-04] MEDS: Cholecalciferol (Vitamin D3) 25 MCG TABLET 50 MCG PO (09:43)
[2023-10-04 09:45] VITALS: BP 144/71; PULSE 62
[2023-10-04] MEDS: Nitroglycerin 0.1 MG PATCH.TD24 TRANSDERMA (09:45)
[2023-10-04] MEDS: carvediloL 25 MG TABLET PO (09:45)
--- NOTE | 2023-10-04 10:03 | PM.PNCARD ---
Subjective Subjective Date of Service: 10/04/23 Interval history: She states she is feeling better. No further chest pain after as today. Review of Systems Review of Systems Yes all other systems are reviewed and are negative Constitutional: Reports as per HPI and Reports no additional constitutional complaints Eyes: Reports as per HPI and Denies no additional eye complaints Denies system reviewed and no additional complaints, except as documented and Reports as per HPI Cardiovascular: Reports as per HPI, Reports no additional cardiovascular complaints, Denies acrocyanosis, Denies cool extremities, Denies chest pain, Denies leg edema, Denies lightheadedness, Denies palpitations and Denies dyspnea Respiratory: Reports as per HPI, Denies no additional respiratory complaints and Denies dyspnea Gastrointestinal: Reports as per HPI and Denies no additional gastrointestinal complaints Genitourinary: Reports as per HPI Musculoskeletal: Reports no additional musculoskeletal complaints and Reports as per HPI Skin/Breast: Reports system reviewed and no additional complaints, except as docu Reports system reviewed and no additional complaints, except as documented and Reports as per HPI Psychiatric: Reports no additional psychiatric complaints and Reports as per HPI Endocrine: Reports no additional endocrine complaints, Reports as per HPI and Denies palpitations Hematologic/Lymphatic: Reports no additional hematologic/lymphatic complaints and Reports as per HPI Allergic/Immunologic: Reports no additional allergic/immunologic complaints and Reports as per HPI Physical Exam Vital Signs: Last Vital Signs Temp 97.0 F 10/04/23 07:40 Pulse 62 10/04/23 09:45 Resp 18 10/04/23 07:40 BP 144/71 H 10/04/23 09:45 Pulse Ox 96 10/04/23 07:40 O2 Del Method Room Air 10/04/23 07:40 BMI result Body Mass Index 28.0 Const General: comfortable and no acute distress Orientation/consciousness: patient oriented x3 HEENT Other: Unremarkable Head: Yes normal to inspection Neck Neck: Yes normal visual inspection Chest Chest palpation & inspection: normal inspection of the chest Resp Auscultation: clear to auscultation bilaterally Cardio Palpation: normal PMI Heart sounds: S1 normal heart sound present, S2 normal heart sound present, no gallops, no murmurs and no rubs GI Palpation (GI): Soft to palpation Back/Spine/Pelvis Other: unremarkable Skin General skin exam: no rashes or lesions noted Neuro General: patient oriented x3 Extrem General: Yes normal to inspection Psych Mental Status: mental status grossly normal Objective Labs and Meds 10/02/23 14:56 10/02/23 14:56 Lab results: Laboratory Results - last 24 hr 10/04/23 10/04/23 00:08 06:05 Hold Purple Top SEE NOTE Troponin I High Sens 29.9 H Urine Opiates Screen Not Detected Ur Buprenorphine Scrn Not Detected Ur Oxycodone Screen Not Detected Urine Methadone Screen Not Detected Urine Fentanyl Screen Not Detected Ur Barbiturates Screen Not Detected Ur Phencyclidine Scrn Not Detected Ur Amphetamines Screen Not Detected U Benzodiazepines Scrn Not Detected Urine Cocaine Screen POSITIVE H U Marijuana (THC) Screen Not Detected Progress Note: A&P Assessment and plan (1) Hypertensive emergency: Status: Acute (2) Elevated troponin: Status: Acute Plan Initial blood pressure was 205/88 mm Hg. Most recently 149/74 mm Hg the same. High sensitivity troponin levels are 42.2, 39.2 and 29.9. Echocardiogram as today with LVEF of 36%. Similar to prior LV function. Overall, poorly controlled hypertension mainly from noncompliance with evidence of cardiomyopathy. Elevated troponins suggest some degree of myocardial injury from the uncontrolled pressures. Current meds are carvedilol 25 mg b.i.d., losartan 100 mg daily and the blood pressure seems fairly reasonable. This actually indicates that she has probably not taking her meds at home. Additionally, on nitroglycerin paste. Otherwise, she is also on aspirin and some statins. With regard to the chest pain, could be all from high blood pressure. Underlying coronary disease also a possibility. We can ambulate and she how she does. Then discharge planning. Can switch the nitroglycerin to oral Isosorbide mononitrate 60 mg daily. Time Spent With Patient Time: Total time managing care of this patient today ____ minutes. Progress Note: Quality Stroke Does the patient have a stroke diagnosis?: No Procedures Date of Service Date of Service: 10/04/23
--- NOTE | 2023-10-04 10:29 | P.DS_ITS ---
DS: Providers Provider Date of Service: 10/04/23 Date of admission: 10/02/23 18:03 Primary care physician: Tanvir Nguyen MD Consults: 10/02/23 18:09 Consult to Cardiology Routine Consulting Provider: [facility] Reason for consultation: elev trop, chest pain DS: Diagnosis Discharge Diagnosis (1) Hypertensive emergency: Status: Acute (2) Elevated troponin: Status: Acute DS: Summary Hospital Course Hospital Course: HPI: 53yo F with HTN, HFrEF [EF 30-35% 03/06/22] and asthma who woke up this morning with chest pressure radiating up to her left jaw and the back of her head. No exertional worsening of the pain. No dyspnea but endorses diaphoresis and nausea. She says the pain was actually present last night and came on at rest. Currently on just losartan and carvedilol but previously on many more medications; the current regimen was prescribed by her PCP last week. 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 Denies diabetes, CAD, or CVA. She arrived in the ED with BP 205/88 and was given aspirin and nitroglycerin. Currently BP is 166/75 and chest pain has mostly resolved, with just some residual chest pressure. EKG with sinus braycardia and LVH. Hs-Tn-I 42.2; repeat after 2hr 39.2. History of cocaine use but denies any recent use. Hospital course: Troponin was trended and it was thought to be type 2 due to uncontrolled hypertension. Cardiology was consulted during hospital course and echocardiogram was performed. Ejection fraction 36%. Patient was resumed on home p.o. antihypertensives with optimal blood pressure control during hospital course. Poorly controlled hypertension mainly from noncompliance with evidence of cardiomyopathy. Patient counseled regarding compliance with prescription home medications and cessation of cocaine use. Patient without chest discomfort prior to discharge at rest and on ambulation. Patient was initiated on aspirin and high-intensity statin prior to discharge. Patient stable to be discharged with close follow-up outpatient. Status at Discharge Functional status at discharge: independent ambulation Overall status at discharge: patient is back to baseline Time Attestation Discharge Coordination Time (in mins): 35 minutes Quality: Safe Use of Opioids Does Pt have an Active Cancer Diagnosis on the Problem List?: No Quality: Stroke Does the patient have a stroke diagnosis?: No Physical Exam Vital Signs: Vital Signs: Last Vital Signs Temp 97.0 F 10/04/23 07:40 Pulse 62 10/04/23 09:45 Resp 18 10/04/23 07:40 BP 144/71 H 10/04/23 09:45 Pulse Ox 96 10/04/23 07:40 O2 Del Method Room Air 10/04/23 07:40 BMI result Body Mass Index 28.0 Gen: in no acute distress HEENT: sclera anicteric, moist mucus membranes Neck: supple Lungs: clear to auscultation bilaterally Heart: regular rate and rhythm, no murmurs Abd: soft, non-tender, non-distended Ext: no edema Skin: warm/well-perfused Neuro: alert and oriented x3, no focal findings Psych: appropriate affect DS: Data Data Completed and Pending Labs on day of discharge: Laboratory Results - last 24 hr 10/04/23 10/04/23 00:08 06:05 Hold Purple Top SEE NOTE Troponin I High Sens 29.9 H Urine Opiates Screen Not Detected Ur Buprenorphine Scrn Not Detected Ur Oxycodone Screen Not Detected Urine Methadone Screen Not Detected Urine Fentanyl Screen Not Detected Ur Barbiturates Screen Not Detected Ur Phencyclidine Scrn Not Detected Ur Amphetamines Screen Not Detected U Benzodiazepines Scrn Not Detected Urine Cocaine Screen POSITIVE H U Marijuana (THC) Screen Not Detected Imaging Chest x-ray: Radiologist's impression: ITS Impressions Chest X-Ray 10/02/23 14:15 IMPRESSION: Mild cardiomegaly. No acute intrathoracic disease. Discharge Plan Discharge Anticipated Discharge Date/Time: 10/04/23 10:24 Patient Disposition: Home, Self-Care Discharge Diagnosis: Hypertensive urgency/emergency Elevated troponin Cocaine use disorder Referrals: Tanvir Nguyen MD [Primary Care Provider] - 1 Week Discharge Medications: New atorvastatin 40 mg Tablet 40 mg PO BEDTIME 30 Days Qty: 30 0RF aspirin 81 mg Tablet,Chewable 81 mg PO DAILY 30 Days Qty: 30 0RF isosorbide mononitrate 60 mg tablet extended release 24 hr 60 mg PO DAILY Qty: 30 0RF Continued (DME) blood pressure monitor Kit See Rx Instructions .Route Qty: 1 0RF Rx Instructions: As directed - use to monitor BP daily as instructed (DME) DEPENDS Adult Pull ups (MEDIUM) medium See Rx Instructions .Route .QuippiPPLY Qty: 100 12RF Rx Instructions: As directed losartan 100 mg tablet 100 mg PO DAILY 90 Days Qty: 90 1RF carvedilol [Coreg] 25 mg tablet 25 mg PO BID 90 Days Qty: 180 1RF Rx Instructions: must administer with a meal/food cholecalciferol (vitamin D3) 50 mcg (2,000 unit) capsule 50 mcg PO DAILY 90 Days Qty: 90 3RF Discharge Orders: Discharge Order (Routine); Ordered 10/04/23 Ordered By: Megan Boyd Diet: Low salt diet Activity on Discharge: As tolerated Stand Alone Forms: Patient Portal Discharge page Print Language: French Care Plan Goals: Compliance with p.o. home antihypertensives Follow-up with PCP in 1 week Health Concerns: Uncontrolled blood pressure Cocaine use disorder Plan of Treatment: Carvedilol 25 mg b.i.d. Losartan 100 mg daily Aspirin 81 mg daily Atorvastatin 40 mg daily Isosorbide mononitrate 60 mg daily Assessment: As above
--- NOTE | 2023-10-04 10:33 | MHC.CM.PN ---
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
== END 2023-10-04 11:50 | disposition home or self-care (01) ==
LOC: HO.ED 16:58 → HO.EDOVER 18:22 → HO.IMC 10-03 09:23
PROVIDERS: Internal Medicine; Physician Assistant Medical; Admitting Provider Family Medicine; Emergency Provider Emergency Medicine; PCP Internal Medicine; Visit Provider Student in an Organized Health Care Education/Training Program
DX: I16.1 Hypertensive emergency (principal); R77.8 Other specified abnormalities of plasma proteins; F14.90 Cocaine use, unspecified, uncomplicated; R07.9 Chest pain, unspecified; R11.0 Nausea; I51.7 Cardiomegaly; I50.20 Unspecified systolic (congestive) heart failure; R79.89 Other specified abnormal findings of blood chemistry; J45.909 Unspecified asthma, uncomplicated
CPT/HCPCS: 0241U; 36415; 71046; 80053; 80061; 80307; 83036; 83690; 83735; 83880; 84484; 85025; 93005; 93306; 96372; 96374; 96375; 96376; 99222; 99285; J1650; J1885; J2405; Q9957

== ENCOUNTER → 2023-10-02 13:39 | Outpatient (BNV) | payer OTHER, SELFPAY | PROVIDERS: Emergency Provider Emergency Medicine; PCP Internal Medicine; Visit Provider Internal Medicine | DX: R07.9 Chest pain, unspecified (principal) | CPT/HCPCS: 93010 ==

== ENCOUNTER 2023-10-02 18:03 | Outpatient (BNV) | payer OTHER, SELFPAY | END 2023-10-04 00:38 | PROVIDERS: Admitting Provider Family Medicine; Emergency Provider Emergency Medicine; PCP Internal Medicine; Visit Provider Internal Medicine | DX: R07.9 Chest pain, unspecified (principal) | CPT/HCPCS: 93010 ==

== ENCOUNTER 2023-10-02 18:03 | Outpatient (BNV) | payer OTHER, SELFPAY | END 2023-10-03 07:00 | PROVIDERS: Admitting Provider Family Medicine; Emergency Provider Emergency Medicine; PCP Internal Medicine; Visit Provider Internal Medicine | DX: R07.9 Chest pain, unspecified (principal); I51.9 Heart disease, unspecified | CPT/HCPCS: 93306 ==

== ENCOUNTER → 2023-10-02 18:03 | Outpatient (BNV) | payer OTHER, SELFPAY | PROVIDERS: Admitting Provider Family Medicine; Emergency Provider Emergency Medicine; PCP Internal Medicine; Visit Provider Family Medicine | DX: I16.1 Hypertensive emergency (principal); R77.8 Other specified abnormalities of plasma proteins | CPT/HCPCS: 99223; 99232; 99239 ==

== ENCOUNTER → 2023-10-02 18:03 | Outpatient (BNV) | payer OTHER, SELFPAY | PROVIDERS: Admitting Provider Family Medicine; Emergency Provider Emergency Medicine; PCP Internal Medicine; Visit Provider Internal Medicine | DX: I16.1 Hypertensive emergency (principal); R77.8 Other specified abnormalities of plasma proteins | CPT/HCPCS: 99223; 99233 ==

== ENCOUNTER 2023-10-12 12:51 | Outpatient (AMB) | payer OTHER, SELFPAY ==
[2023-10-12 12:53] VITALS: BP 150/100; PULSE 57; O2SAT 98; BMI 27.4
--- NOTE | 2023-10-12 12:53 | A.OFFPC_ITS ---
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 DOS: 10/02/23 and DOD: 10/04/23. Admitted for Dx of Hypertension emergency. Pt was found to have elevated BP reading due to medication non-compliancy. She was able to follow up with Cardiology Out Patient. Today reports feeling much better but continues to have frequent headaches. New Plan of Treatment after discharged from hospital: Carvedilol 25 mg b.i.d. Losartan 100 mg daily Aspirin 81 mg daily Atorvastatin 40 mg daily Isosorbide mononitrate 60 mg daily [facility] Medical History (Updated 10/12/23 @ 00:02 by Lázaro Menon) Hypertensive emergency Elevated troponin Vitamin D deficiency Essential hypertension Overweight (BMI 25.0-29.9) Smoker Anxiety Insomnia Lumbar spondylosis Allergic rhinitis Hemorrhagic gastritis Asthma Surgical History History of sleeve gastrectomy Family History Father No problems noted. Mother No problems noted. Social History Household Members: None Housing: Apartment Do you presently have visiting nurse or other home services: Yes Alcohol intake: current Alcohol intake frequency: a few times a week Patient Tobacco Use Status: Current someday Tobacco user Tobacco use type: Cigarette Cigarettes Per Day: 4 e-Cigarette/Vaping Use: Never Used Second Hand Smoke Exposure: Yes Substance Use Type: Crack/Cocaine service: No Current occupational status: disabled Cognitive needs: No Hearing needs: No Vision needs: No Questionnaire Thrive Questionnaire Date Thrive assessed: 10/03/23 PORFIRIO-7 AMB Questionnaire PORFIRIO-7 Date PORFIRIO - 7 assessed: 09/21/23 Source: Developed by Drs. Cristi Arceo, Radha Egan, Jewel Nash and colleagues, with an educational jose from [employer]. Review of Systems Const All systems reviewed & are unremarkable except as noted in HPI and below Physical exam (Primary Care) Vital Signs: Last Vital Signs Pulse 57 10/12/23 12:53 BP 150/100 H 10/12/23 12:53 Pulse Ox 98 10/12/23 12:53 Oxygen Delivery Method Room Air 10/12/23 12:53 BMI result Body Mass Index 27.4 Tobacco/Smoking Status: Tobacco use Status Tobacco use date assessed 09/21/23 10/12/23 12:54 Patient Tobacco Use Status Current someday Tobacco 10/12/23 12:54 Tobacco use type Cigarette 10/12/23 12:54 e-Cigarette/Vaping Use Never Used 10/12/23 12:54 Thrive Assessment: Date of Thrive Assessment Date Thrive assessed 10/03/23 10/12/23 12:54 Const General: cooperative, comfortable and no acute distress Orientation/consciousness: patient oriented x3 Resp Effort & Inspection: normal respiratory effort and able to speak in complete sentences Auscultation: clear to auscultation bilaterally, no crackles, no rales, no rhonc hi and no wheezes Cardio Rate: regular rate Rhythm: abnormal rhythm regularly irregular Neuro General: patient oriented x3, gait normal and moves all extremities Psych Speech and movement: Normal speech and movement present Vital Signs: Last Vital Signs Pulse 57 10/12/23 12:53 BP 150/100 H 10/12/23 12:53 Pulse Ox 98 10/12/23 12:53 Oxygen Delivery Method Room Air 10/12/23 12:53 BMI result Body Mass Index 27.4 Const General: cooperative, comfortable and no acute distress Orientation/consciousness: patient oriented x3 Resp Effort & Inspection: normal respiratory effort and able to speak in complete sentences Auscultation: clear to auscultation bilaterally, no crackles, no rales, no rhonchi and no wheezes Cardio Rate: regular rate Rhythm: abnormal rhythm regularly irregular Neuro General: patient oriented x3, gait normal and moves all extremities Psych Speech and movement: Normal speech and movement present Assessment and Plan Assessment & Plan (1) Hypertensive emergency: Code(s): I16.1 - Hypertensive emergency Plan: Stable, continue on prescribed medications Educated her on importance of medication adherence. Educated on risk factors for VT, Stroke and CVD Continue f/u with Cardiology as scheduled F/U with PCP in the next 3 months or as scheduled. Medications: Refilled cholecalciferol (vitamin D3) 50 mcg PO DAILY 90 caps 3RF 90 days E55.9 - Vitamin D deficiency, unspecified Coding Level of Care Code Est Pt Level 4 (47970) Diagnoses Hypertensive emergency I16.1 Comment Spent 20 minutes reviewing hospital notes
== END 2023-10-12 15:58 | disposition home or self-care (01) ==
PROVIDERS: PCP Internal Medicine; Visit Provider Nurse Practitioner Family
DX: I16.1 Hypertensive emergency (principal)
CPT/HCPCS: 99214

== ENCOUNTER 2023-12-07 13:41 | Outpatient (AMB) | payer OTHER, SELFPAY ==
[2023-12-07 13:49] VITALS: BP 122/60; PULSE 62; BMI 27.5
--- NOTE | 2023-12-07 13:49 | A.OFFVIS_ITS ---
Vital Signs 12/07/23 13:49 Height 5 ft 1 in Weight 145 lb 8.081 oz BMI 27.5 BP 122/60 Blood Pressure Location Lt brachial Position Sitting Pulse 62 Pulse Source Pulse Oximeter Intake Visit Reasons: F/u per HS Allergies No Known Allergies [No Known Allergies*] Allergy (Verified 10/12/23 12:53) Medication List - Last Reconciled 12/07/23 by Alana Uriostegui, AUDIT MACHINE OPERATOR-C aspirin 81 mg PO DAILY 30 days atorvastatin 40 mg PO BEDTIME 30 days blood pressure monitor As directed - use to monitor BP daily as instructed carvedilol (Coreg) 25 mg PO BID 90 days cholecalciferol (vitamin D3) 50 mcg PO DAILY 90 days [DEPENDS Adult Pull ups (MEDIUM) As directed] fluticasone furoate-vilanterol 100-25 mcg/dose (Breo Ellipta) 1 inh inhalation DAILY isosorbide mononitrate ER 60 mg PO DAILY loratadine 10 mg PO DAILY losartan 100 mg PO DAILY 90 days HPI HPI F/u per HS: Details: Kourtney is a 53-year-old female with past medical history of smoking, hypertension, cardiomyopathy who was recently admitted to [facility] with chest discomfort and hypertensive urgency. Her troponin was mildly elevated. An echocardiogram showed EF 36% which is not new for her. Her medications were adjusted and she now presents for follow-up. Today she reports she has been feeling well since her hospital discharge. Her home blood pressures have ranged 120-130 systolic. She has not had any recurrent chest discomfort. No shortness of breath, PND, orthopnea or edema. No lightheadedness, presyncope, syncope, falls. Taking all meds as directed. [facility] Medical History Hypertensive emergency Elevated troponin Vitamin D deficiency Essential hypertension Overweight (BMI 25.0-29.9) Smoker Anxiety Insomnia Lumbar spondylosis Allergic rhinitis Hemorrhagic gastritis Asthma Surgical History History of sleeve gastrectomy Family History Father No problems noted. Mother No problems noted. Social History Household Members: None Housing: Apartment Do you presently have visiting nurse or other home services: Yes Alcohol intake: current Alcohol intake frequency: a few times a week Patient Tobacco Use Status: Current someday Tobacco user Tobacco use type: Cigarette Cigarettes Per Day: 4 e-Cigarette/Vaping Use: Never Used Second Hand Smoke Exposure: Yes Substance Use Type: Crack/Cocaine service: No Current occupational status: disabled Cognitive needs: No Hearing needs: No Vision needs: No Review of Systems Const All systems reviewed & are unremarkable except as noted in HPI and below Denies weakness ENT Denies dizziness Card Reports chest pain, Denies chest pain with activity, Denies syncope, Denies rapid heart rate, Denies pedal edema, Denies edema, Denies leg edema, Denies lightheadedness, Denies palpitations, Denies dyspnea, Denies dyspnea on exertion and Denies orthopnea Resp Denies cough, Denies dyspnea and Denies dyspnea on exertion GI Denies hematochezia and Denies change in stool character Musc Denies abnormal gait, Denies muscle cramps, Denies muscle weakness, Denies numbness, Denies radiating pain into limb and Denies tingling Neuro Denies abnormal gait, Denies dizziness, Denies syncope, Denies numbness, Denies tingling and Denies weakness Endo Denies palpitations Physical Exam Vital Signs: Last Vital Signs Pulse 62 12/07/23 13:49 BP 122/60 12/07/23 13:49 BMI result Body Mass Index 27.5 Const General: cooperative, healthy appearing, comfortable and no acute distress Orientation/consciousness: patient oriented x3 Neck Neck: Yes normal visual inspection and Yes no JVD Resp Effort & Inspection: normal respiratory effort Auscultation: clear to auscultation bilaterally, no crackles, no rales, no rhonchi and no wheezes Cardio Jugular venous distension: no JVD Rate: regular rate Rhythm: regular rhythm Heart sounds: S1 normal heart sound present, S2 normal heart sound present, no murmurs and no rubs GI Inspection: Yes normal to inspection Skin General skin exam: no rashes or lesions noted Neuro General: patient oriented x3 Extrem General: Yes normal to inspection, No no pedal edema and No calf tenderness Psych Appearance: grossly normal Mental Status: mental status grossly normal Speech and movement: Normal speech and movement present Assessment & Plan Assessment & Plan (1) Cardiomyopathy: Code(s): I42.9 - Cardiomyopathy, unspecified Category: Medical Plan: History of cardiomyopathy. Prior echocardiogram 02/2022 showed EF 30-35%, basal inferior akinetic. At that time her cardiomyopathy was thought to be hypertension related. Her last prior visit to our office was 06/13/2022. She then presented to the are 10/02/2023 with chest discomfort and hypertensive urgency. Blood pressure 205/88. She reported compliance with her medications which included carvedilol, losartan. She did have mildly elevated troponin levels. She was admitted for evaluation and med titration. Isosorbide was added and med doses increased. Echocardiogram during admission showed EF 36%, grade 1 diastolic dysfunction, moderate LVH, no reported wall motion abnormality. She has done well since her hospital discharge and tells me home blood pressures are 120-130 systolic. Blood pressure today 122/60. She continues to report med compliance. She will continue on carvedilol and losartan for neurohormonal modulation. Continue isosorbide. She does not appear fluid overloaded on exam. Will order an exercise nuclear stress test to evaluate for any ischemia. No med changes made. All the above reviewed with her and she states understanding. Emergency care if needed for symptoms. Cardiology follow-up 6-8 weeks, sooner if needed. (2) Hypertension: Code(s): I10 - Essential (primary) hypertension Category: Medical Plan: As above (3) Chest pain: Code(s): R07.9 - Chest pain, unspecified Category: Medical Plan: As above. Troponin mildly elevated. Urine cocaine screen was positive. EKG does show sinus bradycardia with T-wave inversions in the lateral leads, voltage criteria for LVH, rate 58. Symptoms have been related to uncontrolled hypertension, cocaine use. Ischemia needs to be ruled out. Exercise nuclear stress test to be done. Continue aspirin, atorvastatin, isosorbide and carvedilol.. (4) Abnormal EKG: Code(s): R94.31 - Abnormal electrocardiogram [ECG] [EKG] Category: Medical Plan: As above (5) Hospital discharge follow-up: Code(s): Z09 - Encounter for follow-up examination after completed treatment for conditions other than malignant neoplasm Category: Medical Plan: As above Plan Time spent on chart review, documentation, interview and assessment Orders: Orders NM cardiolite stress test Today I10 - Essential (primary) hypertension, I42.9 - Cardiomyopathy, unspecified, R94.31 - Abnormal electrocardiogram [ECG] [EKG] CA stress test Today I42.9 - Cardiomyopathy, unspecified, R94.31 - Abnormal electrocardiogram [ECG] [EKG] Coding Level of Care Code Est Pt Level 4 (66031) Diagnoses Cardiomyopathy I42.9 Hypertension I10 Chest pain R07.9 Abnormal EKG R94.31 Hospital discharge follow-up Z09 Time Spent (min) 28
== END 2023-12-07 14:08 | disposition home or self-care (01) ==
PROVIDERS: PCP Internal Medicine; Visit Provider Nurse Practitioner Family
DX: I42.9 Cardiomyopathy, unspecified (principal); I10 Essential (primary) hypertension; R07.9 Chest pain, unspecified; R94.31 Abnormal electrocardiogram [ECG] [EKG]; Z09 Encounter for follow-up examination after completed treatment for conditions other than malignant neoplasm
CPT/HCPCS: 99214

== ENCOUNTER → 2023-12-07 13:41 | Outpatient (BNVA) | payer OTHER, SELFPAY | PROVIDERS: PCP Internal Medicine; Visit Provider Nurse Practitioner Family | DX: I10 Essential (primary) hypertension (principal); I49.1 Atrial premature depolarization; I42.9 Cardiomyopathy, unspecified; R07.9 Chest pain, unspecified; R94.31 Abnormal electrocardiogram [ECG] [EKG]; F17.210 Nicotine dependence, cigarettes, uncomplicated; Z09 Encounter for follow-up examination after completed treatment for conditions other than malignant neoplasm | CPT/HCPCS: 99212 ==

== ENCOUNTER 2024-01-18 13:37 | Outpatient (AMB) | payer OTHER, SELFPAY ==
--- NOTE | 2024-01-18 13:54 | A.OFFPC_ITS ---
Vital Signs 01/18/24 13:55 Height 5 ft 1 in Weight 146 lb 6 oz BMI 27.7 BP 124/86 Blood Pressure Location Lt brachial Position Sitting Pulse 89 Pulse Source Pulse Oximeter Pulse Oximetry (%) 97 Oxygen Delivery Method Room Air Intake Visit Reasons: uncontrolled HTN, asthma, cardiomyopathy Record Label Intern Required: No Accompanied by: Self / Same As Patient Allergies No Known Allergies [No Known Allergies*] Allergy (Verified 01/19/24 19:54) Medication List - Last Reconciled 01/19/24 by Tanvir Nguyen MD aspirin 81 mg PO DAILY 30 days atorvastatin 40 mg PO BEDTIME 90 days blood pressure monitor As directed - use to monitor BP daily as instructed carvedilol (Coreg) 25 mg PO BID 90 days cholecalciferol (vitamin D3) 50 mcg PO DAILY 90 days [DEPENDS Adult Pull ups (MEDIUM) As directed] fluticasone furoate-vilanterol 100-25 mcg/dose (Breo Ellipta) 1 inh inhalation DAILY isosorbide mononitrate ER 60 mg PO DAILY 90 days loratadine 10 mg PO DAILY losartan 100 mg PO DAILY 90 days omeprazole 40 mg PO DAILY PRN 90 days Tobacco use date assessed: 01/18/24 Dental Screening Dental Screen Date: 01/18/24 Did you have a dental visit in the last 12 months?: No Did you have a dental problem in the last 6 months where you did not have access to dental care?: No Was dental information given to patient?: Patient has dentist HPI uncontrolled HTN, asthma, cardiomyopathy HPI Details Patient comes in today for her follow up visit States that she currently feels okay and that her blood pressure has been much better controlled since her ER visit in late September 2023 for hypertensive urgency - she presented to the ER then with chest pain/pressure She has since been started on low dose Aspirin 81 mg QD and Isosorbide Mononitrate ER 30 mg QD and continues on Losartan 100 mg QD and Carvedilol 25 mg BID She was also started on Amlodipine 10 mg QD at her last visit but it looks like she did not start taking this at all She was seen by cardiology for follow up last month and was advised to undergo cardiac stress testing for further evaluation of her cardiomyopathy - she is now scheduled for this in 10 days on 01/28/2024 She denies any headaches or dizziness Denies any chest pains, no increased SOB No nausea/vomiting, no abdominal pain No change in bowel habits noted She needs a few of her Rx refilled PFSH Medical History Hypertensive emergency Elevated troponin Vitamin D deficiency Essential hypertension Overweight (BMI 25.0-29.9) Smoker Anxiety Insomnia Lumbar spondylosis Allergic rhinitis Hemorrhagic gastritis Asthma Surgical History History of sleeve gastrectomy Family History Father No problems noted. Mother No problems noted. Social History Household Members: None Housing: Apartment Do you presently have visiting nurse or other home services: Yes Alcohol intake: current Alcohol intake frequency: a few times a week Patient Tobacco Use Status: Current someday Tobacco user Tobacco use type: Cigarette Cigarettes Per Day: 4 e-Cigarette/Vaping Use: Never Used Second Hand Smoke Exposure: Yes Substance Use Type: Crack/Cocaine service: No Current occupational status: disabled Cognitive needs: No Hearing needs: No Vision needs: No Questionnaire PHQ-9 Over the last 2 weeks, how often have you been bothered by any of the following problems? 1. Little interest or pleasure in doing things: not at all 2. Feeling down, depressed, or hopeless: not at all 3. Trouble falling or staying asleep, or sleeping too much: not at all 4. Feeling tired or having little energy: not at all 5. Poor appetite or overeating: not at all 6. Feeling bad about yourself - or that you are a failure or have let yourself or your family down: not at all 7. Trouble concentrating on things, such as reading the newspaper or watching television: not at all 8. Moving or speaking so slowly that other people could have noticed. Or the opposite - being so fidgety or restless that you have been moving around a lot more than usual: not at all 9. Thoughts that you would be better off or of hurting yourself in some way: not at all Total score: 0 Depression Screening Interpretation: Positive (feels that she is more stressed out and anxious rather than depressed) Depression Screening Follow-up: Existing condition, Follow-up Visit Requested and Declines treatment Depression Screening Done: Yes 70220 - PHQ-9 Billing: Yes Source: Developed by Drs. Cristi Arceo, Radha Egan, Jewel Nash and colleagues, with an educational jose from [employer]. Thrive Questionnaire Date Thrive assessed: 01/18/24 I am a: Patient What is your living situation today?: I have a steady place to live Within the past 12 months, did the food you bought not last and you didn't have the money to get more?: Never true Within the past 12 months, did you worry whether your food would run out before you got money to buy more?: Never true Do you have trouble paying for medicines?: No Do you have trouble getting transportation to medical appointments?: No Do you have trouble paying your heating and electricity bill?: No Do you have trouble taking care of your child, family member or friend?: No Do you have trouble with day-to-day activities such as bathing, preparing meals, shopping, managing finances, etc.?: No Are you currently unemployed and looking for a job?: No Are you interested in more education?: No Please select the resources that you would like help with: None Currently or been in a relationship where the following occur: No concerns reported THRIVE Score: 0 AUDIT C Alcohol Use Questionnaire (AUDIT-C) 1. How often do you have a drink containing alcohol?: Monthly or less 2. How many drinks containing alcohol do you have on a typical day when you are drinking?: 1 or 2 3. How often do you have six or more drinks on one occasion?: Never Total Score: 1 Score Reviewed/Action Taken: Yes PORFIRIO-7 AMB Questionnaire PORFIRIO-7 Date PORFIRIO - 7 assessed: 01/18/24 Feeling nervous, anxious, or on edge: 0 = Not at all Not being able to stop or control worryin = Not at all Worrying too much about different things: 0 = Not at all Trouble relaxin = Not at all Being so restless that it is hard to sit still: 0 = Not at all Becoming easily annoyed or irritable: 0 = Not at all Feeling afraid as if something awful might happen: 0 = Not at all Total PORFIRIO-7 score (0-4 normal; 5-9 mild; 10-14 moderate; 15-21 severe): 0 Source: Developed by Drs. Cristi Arceo, Radha Egan, Jewel Nash and colleagues, with an educational jose from [employer]. Review of Systems Const Denies chills, Denies fatigue, Denies fever(s) and Denies headache(s) ENT Denies dysphagia, Denies dizziness, Denies otalgia, Denies headache(s), Reports hearing loss, Denies nasal congestion, Denies neck pain, Denies odynophagia and Reports sore throat Card Denies chest pain, Denies palpitations and Denies dyspnea Resp Denies chest congestion, Denies cough and Denies dyspnea GI Denies abdominal pain, Denies constipation, Denies dysphagia, Denies heartburn, Denies diarrhea, Denies nausea, Denies odynophagia and Denies vomiting Denies difficulty voiding, Denies nocturia, Denies dysuria, Reports urinary incontinence (at times) and Denies urinary urgency Musc Reports back pain (over the lower back; increased pain and spasms over both sides of spine) and Denies neck pain Skin/Breast Denies rash Neuro Denies dizziness and Denies headache(s) Psych Reports anxiety Endo Denies fatigue and Denies palpitations Physical exam (Primary Care) Vital Signs: Last Vital Signs Pulse 89 01/18/24 13:55 BP 124/86 01/18/24 13:55 Pulse Ox 97 01/18/24 13:55 Oxygen Delivery Method Room Air 01/18/24 13:55 BMI result Body Mass Index 27.7 Tobacco/Smoking Status: Tobacco use Status Tobacco use date assessed 01/18/24 01/18/24 14:00 Patient Tobacco Use Status Current someday Tobacco 01/18/24 14:00 Tobacco use type Cigarette 01/18/24 14:00 e-Cigarette/Vaping Use Never Used 01/18/24 14:00 PHQ-9: PHQ-9 Score PHQ-9: Total score 0 01/19/24 09:37 Depression Screening Interpretation: Positive (feels that she is more stressed out and anxious rather than depressed) Depression Screening Follow-up: Existing condition, Follow-up Visit Requested and Declines treatment Thrive Assessment: Date of Thrive Assessment Date Thrive assessed 01/18/24 01/18/24 14:00 Currently or been in a relationship where the following occur: No concerns reported Const General: no acute distress and alert HENMT Ears: TM's normal bilaterally and EAC's normal Throat: Yes posterior oropharynx normal and Yes tonsils normal (no TP congestion) Neck Neck: Yes no lymphadenopathy and Yes supple Thyroid: Thyroid normal Resp Auscultation: clear to auscultation bilaterally, no crackles, no rales and no wheezes Cardio Rate: regular rate Rhythm: regular rhythm Heart sounds: no murmurs GI Palpation (GI): Soft to palpation and nontender Auscultation: normal bowel sounds General: Yes no CVA tenderness Back/Spine/Pelvis Back: no CVA tenderness Thoracic/Lumbar Spine: paraspinal muscle tenderness bilaterally in the mid lumbar and in the lower lumbar and lumbar spinal tenderness Skin Rashes: no rashes Extrem General: Yes no clubbing, cyanosis or edema Assessment and Plan Assessment & Plan (1) Essential hypertension: Code(s): I10 - Essential (primary) hypertension Plan: Reinforced low sodium diet - goal is systolic BP of at least 120 to 130 mm or less Patient appears to be much more compliant now with her medications since her visit to the ER a few months ago for chest pains and hypertensive urgency Continue Losartan 100 mg QD and Carvedilol 25 mg BID She is reminded to try monitoring her blood pressure regularly (2) Cardiomyopathy: Code(s): I42.9 - Cardiomyopathy, unspecified Qualifiers: Cardiomyopathy type: unspecified Qualified Code(s): I42.9 - Cardiomyopathy, unspecified Plan: Echocardiogram done back in February 2022 revealed moderately decreased left ventricular systolic function, with the visually estimated ejection fraction between 30-35%. The basal inferior segment is akinetic but no obvious valvular pathology was seen on the study Continue Asprin 81 mg QD, Carvedilol 25 mg BID and Isosorbide Mononitrate ER 60 mg QD She was also started on Atorvastatin 40 mg QD when she was seen at the hospital for chest pains and elevated troponin level as well as hypertensive urgency a few months ago She is scheduled for nuclear stress testing on 01/28/2024 Follow up with cardiology as scheduled Will have her check her labs and fasting lipids in 3 months for follow up (3) Vitamin D deficiency: Code(s): E55.9 - Vitamin D deficiency, unspecified Plan: Continue Vitamin D3 2000 units QD (4) Asthma: Code(s): J45.909 - Unspecified asthma, uncomplicated Qualifiers: Asthma severity: moderate Asthma persistence: persistent Asthma complication type: uncomplicated Qualified Code(s): J45.40 - Moderate persistent asthma, uncomplicated Plan: Stable/controlled Continue Breo Ellipta 100-25 mcg 1 inhalation QD and Albuterol HFA 2 inhalations Q 6 hours PRN (5) Hemorrhagic gastritis: Code(s): K29.71 - Gastritis, unspecified, with bleeding Qualifiers: Gastritis type: unspecified gastritis Chronicity: chronic Qualified Code(s): K29.51 - Unspecified chronic gastritis with bleeding Plan: EGD done back in 2015 ([address] Dr[address] Llanos) revealed findings of hemorrhagic gastritis with a small hiatal hernia Reinforced dietary restrictions Continue Omeprazole 40 mg QD Follow up with GI as scheduled (6) Allergic rhinitis: Code(s): J30.9 - Allergic rhinitis, unspecified Qualifiers: Allergic rhinitis trigger: unspecified Allergic rhinitis seasonality: unspecified Qualified Code(s): J30.9 - Allergic rhinitis, unspecified Plan: Continue Fluticasone 50 mcg nasal spray QD PRN and Loratadine 10 mg QD PRN (7) Lumbar spondylosis: Code(s): M47.816 - Spondylosis without myelopathy or radiculopathy, lumbar region Plan: Reinforced activity and weight lifting restrictions She was taking Ibuprofen 800 mg TID PRN for pain but have advised her that with her cardiac issues, she should NOT continue taking Ibuprofen (8) Hearing loss: Code(s): H91.90 - Unspecified hearing loss, unspecified ear Qualifiers: Hearing loss type: unspecified Laterality: unspecified laterality Qualified Code(s): H91.90 - Unspecified hearing loss, unspecified ear Plan: She was seen by ENT last month (August 2023) and confirmed that she does have significant hearing loss but she is not at a point yet where she will require hearing aids Follow up with ENT as scheduled (9) Insomnia: Code(s): G47.00 - Insomnia, unspecified Qualifiers: Insomnia type: primary Qualified Code(s): F51.01 - Primary insomnia Plan: Sleep hygiene reinforced She used to take Rozerem but states that she is currently not taking anything for sleep (10) Anxiety: Code(s): F41.9 - Anxiety disorder, unspecified Plan: She was taking Citalopram 20 mg QD in the past but self-discontinued this at some point Follow up with psychiatry as scheduled (11) Smoker: Code(s): F17.200 - Nicotine dependence, unspecified, uncomplicated Plan: Counseled again on smoking cessation (12) Overweight (BMI 25.0-29.9): Code(s): E66.3 - Overweight Plan: Reinforced diet/exercise as tolerated/lose weight Plan Follow up in 3 months Orders: Orders Complete Blood Count Auto Diff 3 Months D64.9 - Anemia, unspecified Comprehensive [place]. Panel Fast 3 Months E78.00 - Pure hypercholesterolemia, unspecified UA CC w/rflx Micro + Cult 3 Months R30.0 - Dysuria Vitamin D 25-OH Total 3 Months E55.9 - Vitamin D deficiency, unspecified Lipid Panel 3 Months E78.00 - Pure hypercholesterolemia, unspecified Medications: Changed From isosorbide mononitrate ER 60 mg PO DAILY 30 tabs 0RF To isosorbide mononitrate ER 60 mg PO DAILY 90 days 90 tabs 1RF From atorvastatin 40 mg PO BEDTIME 30 days 30 tabs 0RF To atorvastatin 40 mg PO BEDTIME 90 days 90 tabs 1RF Refilled carvedilol (Coreg) must administer with a meal/food 25 mg PO BID 90 days 180 tabs 1RF losartan 100 mg PO DAILY 90 days 90 tabs 1RF omeprazole 40 mg PO DAILY 90 days PRN 90 caps 1RF Acid Reflux Coding Level of Care Code Est Pt Level 4 (64765) Diagnoses Essential hypertension I10 Cardiomyopathy, unspecified type I42.9 Cardiomyopathy type: unspecified Vitamin D deficiency E55.9 Moderate persistent asthma without complication J45.40 Asthma severity: moderate Asthma persistence: persistent Asthma complication type: uncomplicated Chronic gastritis with bleeding, unspecified gastritis type K29.51 Gastritis type: unspecified gastritis Chronicity: chronic Allergic rhinitis, unspecified seasonality, unspecified trigger J30.9 Allergic rhinitis trigger: unspecified Allergic rhinitis seasonality: unspecified Lumbar spondylosis M47.816 Hearing loss, unspecified hearing loss type, unspecified laterality H91.90 Hearing loss type: unspecified Laterality: unspecified laterality Primary insomnia F51.01 Insomnia type: primary Anxiety F41.9 Smoker F17.200 Overweight (BMI 25.0-29.9) E66.3
[2024-01-18 13:55] VITALS: BP 124/86; PULSE 89; O2SAT 97; BMI 27.7
== END 2024-01-18 14:19 | disposition home or self-care (01) ==
PROVIDERS: PCP Internal Medicine; Visit Provider Internal Medicine
DX: I10 Essential (primary) hypertension (principal); I42.9 Cardiomyopathy, unspecified; E55.9 Vitamin D deficiency, unspecified; J45.40 Moderate persistent asthma, uncomplicated; K29.51 Unspecified chronic gastritis with bleeding; J30.9 Allergic rhinitis, unspecified; M47.816 Spondylosis without myelopathy or radiculopathy, lumbar region; H91.90 Unspecified hearing loss, unspecified ear; F51.01 Primary insomnia; F41.9 Anxiety disorder, unspecified; F17.200 Nicotine dependence, unspecified, uncomplicated; E66.3 Overweight
CPT/HCPCS: 99214

== ENCOUNTER → 2024-01-28 07:44 | Outpatient (REF) | payer OTHER, SELFPAY ==
--- NOTE | 2024-01-28 07:48 | CA_ITS ---
Acquisition Time: 2024-01-28 07:44:55 Total Exercise Time: 00:00:00 Test Indications: CP, ABN EKG Medications: SEE H Protocol: CANDE Max HR: 088 BPM 52% of Pred: 167 BPM Max BP: 222/108 mmHG Max Work Load: 1.0 METS Referred By: Alana Uriostegui Overread By: Ann Gallego
== END ==
LOC: HO.CARD 07:44
PROVIDERS: PCP Internal Medicine; Visit Provider Nurse Practitioner Family
DX: I42.9 Cardiomyopathy, unspecified (principal); I10 Essential (primary) hypertension; R94.31 Abnormal electrocardiogram [ECG] [EKG]
CPT/HCPCS: 93017; J0280; J2785

== ENCOUNTER → 2024-01-28 07:48 | Outpatient (BNV) | payer OTHER, SELFPAY | PROVIDERS: PCP Internal Medicine; Visit Provider Nurse Practitioner | DX: R07.9 Chest pain, unspecified (principal) | CPT/HCPCS: 93016; 93018 ==

== ENCOUNTER 2024-02-14 13:27 | Outpatient (AMB) | payer OTHER, SELFPAY ==
[2024-02-14 13:34] VITALS: BP 182/90; PULSE 101; BMI 28.1
--- NOTE | 2024-02-14 13:34 | MHC.OFFVIS ---
Vital Signs 02/14/24 13:34 Height 5 ft 1 in Weight 148 lb 9.465 oz BMI 28.1 BP 182/90 H Blood Pressure Location Lt brachial Position Sitting Pulse 101 H Pulse Source Pulse Oximeter Intake Visit Reasons: 2m follow up [facility] Director Required: No Allergies No Known Allergies [No Known Allergies*] Allergy (Verified 02/14/24 13:35) Medication List - Last Reconciled 02/14/24 by Alana Uriostegui, PROTOCOL OFFICER-C aspirin 81 mg PO DAILY 30 days blood pressure monitor As directed - use to monitor BP daily as instructed carvedilol (Coreg) 25 mg PO BID 90 days cholecalciferol (vitamin D3) 50 mcg PO DAILY 90 days [DEPENDS Adult Pull ups (MEDIUM) As directed] fluticasone furoate-vilanterol 100-25 mcg/dose (Breo Ellipta) 1 inh inhalation DAILY isosorbide mononitrate ER 60 mg PO DAILY 90 days loratadine 10 mg PO DAILY losartan 100 mg PO DAILY 90 days omeprazole 40 mg PO DAILY PRN 90 days HPI HPI 2m follow up: Details: Kourtney is a 53-year-old female with past medical history of smoking, hypertension, cardiomyopathy who was scheduled to undergo a nuclear stress test however test was canceled that day due to hypertension. She now presents for follow-up. Today she reports she has been documenting elevated blood pressures at home. Her readings have been as high as 201/108. Previously it had been controlled but recently it is high again. She is not sure why this is happening. She tells me that she feels fine with no concerning symptoms. Reviewed all her meds in detail with her and she reports full compliance. She does admit to having a high salt diet and has been eating a ham and cheese sandwich for breakfast daily. She denies any chest discomfort at rest or with activity. No shortness of breath, PND, orthopnea or edema. No lightheadedness, presyncope, syncope, falls. Admits to only light physical activity. [facility] Medical History Hypertensive emergency Elevated troponin Vitamin D deficiency Essential hypertension Overweight (BMI 25.0-29.9) Smoker Anxiety Insomnia Lumbar spondylosis Allergic rhinitis Hemorrhagic gastritis Asthma Surgical History History of sleeve gastrectomy Family History Father No problems noted. Mother No problems noted. Social History Household Members: None Housing: Apartment Do you presently have visiting nurse or other home services: Yes Alcohol intake: current Alcohol intake frequency: a few times a week Patient Tobacco Use Status: Current someday Tobacco user Tobacco use type: Cigarette Cigarettes Per Day: 4 e-Cigarette/Vaping Use: Never Used Second Hand Smoke Exposure: Yes Substance Use Type: Crack/Cocaine service: No Current occupational status: disabled Cognitive needs: No Hearing needs: No Vision needs: No Review of Systems Const All systems reviewed & are unremarkable except as noted in HPI and below ENT Denies dizziness Card Denies chest pain, Denies chest pain at rest, Denies chest pain with activity, Denies rapid heart rate, Denies pedal edema, Denies edema, Denies leg edema, Denies lightheadedness, Denies palpitations, Denies dyspnea, Denies dyspnea on exertion and Denies orthopnea Resp Denies cough, Denies dyspnea and Denies dyspnea on exertion GI Denies hematochezia and Denies change in stool character Musc Denies abnormal gait, Denies limited range of motion, Denies muscle cramps, Denies muscle weakness, Denies numbness, Denies radiating pain into limb, Denies stiffness and Denies tingling Neuro Denies abnormal gait, Denies dizziness, Denies numbness and Denies tingling Endo Denies palpitations Physical Exam Vital Signs: BMI result Body Mass Index 28.1 Const General: cooperative, healthy appearing, comfortable and no acute distress Orientation/consciousness: patient oriented x3 Neck Neck: Yes normal visual inspection and Yes no JVD Resp Effort & Inspection: normal respiratory effort Auscultation: clear to auscultation bilaterally, no rales, no rhonchi and no wheezes Cardio Jugular venous distension: no JVD Rate: regular rate Rhythm: regular rhythm Heart sounds: S1 normal heart sound present, S2 normal heart sound present, no murmurs and no rubs Neuro General: patient oriented x3 Extrem General: Yes normal to inspection and No no pedal edema Psych Appearance: grossly normal Mental Status: mental status grossly normal Speech and movement: Normal speech and movement present Assessment & Plan Assessment & Plan (1) Cardiomyopathy: Code(s): I42.9 - Cardiomyopathy, unspecified Category: Medical Qualifiers: Cardiomyopathy type: unspecified Qualified Code(s): I42.9 - Cardiomyopathy, unspecified Plan: History of cardiomyopathy. Prior echocardiogram 02/2022 showed EF 30-35%, basal inferior akinetic. At that time her cardiomyopathy was thought to be hypertension related. She was not seen in our office between 06/13/2022 and hospital admit for hypertensive urgency 10/02/2023. At that time she did have mildly elevated troponin levels. Her blood pressure Isosorbide was added and her carvedilol and losartan doses were increased. Echocardiogram during admission showed EF 36%, grade 1 diastolic dysfunction, moderate LVH, no reported wall motion abnormality. On follow-up visit her blood pressure was normal range. Recently she reports blood pressures have become elevated again. She tells me she has been taking her medications as directed. She does admit to a high salt diet which can contribute to her uncontrolled hypertension. She has no signs of heart failure on examination. Blood pressure today initially 182/90. Recheck done by me after sitting for 10 minutes was 158/88. Will have her stop losartan and start on Entresto, mid dose. Continue carvedilol and isosorbide. Office blood pressure check and labs in 2 weeks. Plan to further titrate Entresto dose at that time. Will check a renal artery ultrasound to assess for renal artery stenosis. Will plan for pharmacological nuclear stress test once blood pressure is better controlled. Instructed on low-salt diet, less than 2 g daily. Signs and symptoms of heart failure reviewed with her. Emergency care if needed for symptoms. Cardiology follow-up 3 months, sooner if needed. (2) Hypertension: Code(s): I10 - Essential (primary) hypertension Category: Medical Plan: As above (3) Chest pain: Code(s): R07.9 - Chest pain, unspecified Category: Medical Plan: Chest discomfort at time of last hospitalization. Troponin mildly elevated. Urine cocaine screen was positive. EKG does showed sinus bradycardia with T-wave inversions in the lateral leads, voltage criteria for LVH, rate 58. Symptoms thought to be related to uncontrolled hypertension, cocaine use. Ischemia needs to be ruled out. Nuclear stress test still pending. Continue aspirin, atorvastatin, isosorbide and carvedilol.. (4) Abnormal EKG: Code(s): R94.31 - Abnormal electrocardiogram [ECG] [EKG] Category: Medical Plan: As above Plan Time spent on chart review, documentation, interview and assessment Orders: Orders Basic Metabolic Panel 2 Weeks I42.9 - Cardiomyopathy, unspecified Medications: New sacubitril-valsartan 49-51 mg (Entresto) Stop Losartan Start Entresto - 1 tab twice daily 1 tab PO BID 60 tabs 2RF Discontinued losartan Discontinued Reason: Doctor's Order 100 mg PO DAILY 90 days 90 tabs 1RF Coding Level of Care Code Est Pt Level 4 (61810) Complex EM visit Add On G2211 Diagnoses Cardiomyopathy, unspecified type I42.9 Cardiomyopathy type: unspecified Hypertension I10 Chest pain R07.9 Abnormal EKG R94.31 Time Spent (min) 30
== END 2024-02-14 14:06 | disposition home or self-care (01) ==
PROVIDERS: PCP Internal Medicine; Visit Provider Nurse Practitioner Family
DX: I42.9 Cardiomyopathy, unspecified (principal); I10 Essential (primary) hypertension; R07.9 Chest pain, unspecified; R94.31 Abnormal electrocardiogram [ECG] [EKG]
CPT/HCPCS: 99214; G2211

== ENCOUNTER → 2024-02-14 13:27 | Outpatient (BNVA) | payer OTHER, SELFPAY | PROVIDERS: PCP Internal Medicine; Visit Provider Nurse Practitioner Family | DX: I10 Essential (primary) hypertension (principal); I42.9 Cardiomyopathy, unspecified; R07.9 Chest pain, unspecified; R94.31 Abnormal electrocardiogram [ECG] [EKG]; Z87.891 Personal history of nicotine dependence | CPT/HCPCS: 99212 ==

== ENCOUNTER 2024-02-29 08:03 | Outpatient (REF) | payer OTHER, SELFPAY ==
--- NOTE | ~2024-02-29 | US_ITS ---
EXAMINATION: ULTRASOUND RENAL WITH DOPPLER CLINICAL INFORMATION: Essential (primary) hypertension. COMPARISON: CT abdomen and pelvis dated 09/15/2020. TECHNIQUE: Real-time grayscale, color Doppler, and duplex Doppler evaluation of the kidneys and renal vasculature was performed. FINDINGS: RENAL MEASUREMENTS: Right: 10.6 x 3.5 x 4.3 cm (Sag x AP x TV) Left: 10.8 x 5.2 x 4.4 cm (Sag x AP x TV) The renal parenchyma appears normal. No mass or calculus is seen. No cyst is seen. No hydronephrosis or nephrolithiasis. DOPPLER INTERROGATION: Aorta: 62.9 cm/sec Right Main Renal Artery: Proximal: 73.7 cm/sec Mid: 61.8 cm/sec Distal: 79.0 cm/sec Left Main Renal Artery: Proximal: 75.9 cm/sec Mid: 88.0 cm/sec Distal: 106.1 cm/sec Renal-Aortic Ratio (RAR): Right: 1.26 Left: 1.69 Bilateral upper pole, interpolar and lower pole [segmental] arteriolar resistive indices are within normal limits. Bilateral upper pole, interpolar and lower pole [segmental] arteriolar pulse doppler waveforms are unremarkable, with uniformly rapid upstrokes and no parvus et tardus configuration. US/US renal doppler IMPRESSION: Unremarkable renal ultrasound examination, without hemodynamically significant renal artery stenosis noted. Electronically signed by: Angelo Dennis MD 03/30/2024 11:04 [facility]
--- NOTE | ~2024-02-29 | US_ITS ---
EXAMINATION: ULTRASOUND RENAL WITH DOPPLER CLINICAL INFORMATION: Essential (primary) hypertension. COMPARISON: CT abdomen and pelvis dated 09/15/2020. TECHNIQUE: Real-time grayscale, color Doppler, and duplex Doppler evaluation of the kidneys and renal vasculature was performed. FINDINGS: RENAL MEASUREMENTS: Right: 10.6 x 3.5 x 4.3 cm (Sag x AP x TV) Left: 10.8 x 5.2 x 4.4 cm (Sag x AP x TV) The renal parenchyma appears normal. No mass or calculus is seen. No cyst is seen. No hydronephrosis or nephrolithiasis. DOPPLER INTERROGATION: Aorta: 62.9 cm/sec Right Main Renal Artery: Proximal: 73.7 cm/sec Mid: 61.8 cm/sec Distal: 79.0 cm/sec Left Main Renal Artery: Proximal: 75.9 cm/sec Mid: 88.0 cm/sec Distal: 106.1 cm/sec Renal-Aortic Ratio (RAR): Right: 1.26 Left: 1.69 Bilateral upper pole, interpolar and lower pole [segmental] arteriolar resistive indices are within normal limits. Bilateral upper pole, interpolar and lower pole [segmental] arteriolar pulse doppler waveforms are unremarkable, with uniformly rapid upstrokes and no parvus et tardus configuration. US/US renal BI IMPRESSION: Unremarkable renal ultrasound examination, without hemodynamically significant renal artery stenosis noted. Electronically signed by: Angelo Dennis MD 03/30/2024 11:04 PM [facility]
--- NOTE | ~2024-02-29 | US_ITS ---
EXAMINATION: ULTRASOUND RENAL WITH DOPPLER CLINICAL INFORMATION: Essential (primary) hypertension. COMPARISON: CT abdomen and pelvis dated 09/15/2020. TECHNIQUE: Real-time grayscale, color Doppler, and duplex Doppler evaluation of the kidneys and renal vasculature was performed. FINDINGS: RENAL MEASUREMENTS: Right: 10.6 x 3.5 x 4.3 cm (Sag x AP x TV) Left: 10.8 x 5.2 x 4.4 cm (Sag x AP x TV) The renal parenchyma appears normal. No mass or calculus is seen. No cyst is seen. No hydronephrosis or nephrolithiasis. DOPPLER INTERROGATION: Aorta: 62.9 cm/sec Right Main Renal Artery: Proximal: 73.7 cm/sec Mid: 61.8 cm/sec Distal: 79.0 cm/sec Left Main Renal Artery: Proximal: 75.9 cm/sec Mid: 88.0 cm/sec Distal: 106.1 cm/sec Renal-Aortic Ratio (RAR): Right: 1.26 Left: 1.69 Bilateral upper pole, interpolar and lower pole [segmental] arteriolar resistive indices are within normal limits. Bilateral upper pole, interpolar and lower pole [segmental] arteriolar pulse doppler waveforms are unremarkable, with uniformly rapid upstrokes and no parvus et tardus configuration.
== END 2024-02-29 08:04 | disposition home or self-care (01) ==
LOC: HO.US 08:03
PROVIDERS: PCP Internal Medicine; Visit Provider Nurse Practitioner Family
DX: I10 Essential (primary) hypertension (principal)
CPT/HCPCS: 76775; 93975

== ENCOUNTER 2024-03-20 09:01 | Emergency (ER) | payer OTHER, SELFPAY ==
[2024-03-20] VITALS (8 sets, daily range): BP systolic 136–197; BP diastolic 68–94; PULSE 61–70; RESP 14–25; TEMP 36.4–36.8; O2SAT 96–100; BMI 27.4
--- NOTE | ~2024-03-20 | XR_ITS ---
EXAMINATION: XR CHEST 2 VIEW CLINICAL INFORMATION: Pain COMPARISON: 10/02/2023 TECHNIQUE: PA and lateral views of the chest obtained. FINDINGS: The lungs are clear. There are no pleural effusions. The cardiac silhouette is enlarged but stable. XR/XR chest 2V IMPRESSION: Cardiomegaly. No acute cardiopulmonary disease or significant interval change. Electronically signed by: Luis Arboleda MD 03/20/2024 02:07 PM [facility]
--- NOTE | 2024-03-20 09:04 | ECG_ITS ---
Test Reason : chest pain Blood Pressure : / mmHG Vent. Rate : 064 BPM Atrial Rate : 064 BPM P-R Int : 134 ms QRS Dur : 078 ms QT Int : 410 ms P-R-T Axes : 032 029 075 degrees QTc Int : 422 ms Normal sinus rhythm Minimal voltage criteria for LVH, may be normal variant ( R in aVL ) Cannot rule out Anterior infarct , age undetermined Abnormal ECG When compared with ECG of 04-OCT-2023 00:38, Nonspecific T wave abnormality no longer evident in Inferior leads Referred By: Generic ED Physician Electronically Signed By:Dusty Artis
[2024-03-20 10:53] LABS: MANUAL DIFF FLAG NO
[2024-03-20 11:02] LABS: Basophils Percent Auto 0.3 % (0-2); Eosinophils Percent Auto 0.4 % (0-4); Hematocrit 35.5 % (37.0-47.0); Hemoglobin 12.3 g/dl (12.0-16.0); Imm Gran Abs Auto 0.03 X10*3/uL (0.00-0.03); Imm Gran Pct Auto 0.3 % (0.0-0.4); Lymphocytes Absolute Auto 1.2 X10*3/uL (1.2-4.9); Lymphocytes Percent Auto 11.1 % (20-40); Mean Corpuscular HGB Conc 34.6 g/dl (31.0-35.0); Mean Corpuscular Hemoglobin 31.3 pg (27.0-33.0); Mean Corpuscular Volume 90.3 fL (80.0-98.0); Mean Platelet Volume 10.1 fL (9.4-12.3); Monocytes Absolute Auto 0.7 X10*3/uL (0.1-1.2); Monocytes Percent Auto 6.4 % (2-11); Neutrophils Absolute Auto 9.1 x10*3/uL (2.0-8.3); Neutrophils Percent Auto 81.5 % (45-73); Platelet Count 302 X10*3/uL (160-400); Red Blood Count 3.93 X10*6/uL (4.20-5.50); White Blood Count 11.1 X10*3/uL (4.8-10.8)
[2024-03-20 11:10] LABS: Anion Gap 7 (12-20); Blood Urea Nitrogen 12 mg/dL (9-16); Calcium 8.8 mg/dL (8.4-10.2); Carbon Dioxide 32 mmol/L (22-29); Chloride 105 mmol/L (96-108); Creatinine Clr Calc Pharmacy 69.7; Estimated Glomerular Filt Rate > 60; Glucose Random 89 mg/dL (60-115); Potassium 3.9 mmol/L (3.3-5.1); Sodium 140 mmol/L (135-145)
[2024-03-20 11:19] LABS: Troponin-I High Sensitivity 31.3 ng/L (<3.5-17.0)
--- NOTE | 2024-03-20 11:21 | ED_ITS ---
HPI - Chest Pain General Chief Complaint: Chest Pain Stated Complaint: [id number] Time Seen by Provider: 03/20/24 11:08 Source: patient Limitations: no limitations History of Present Illness ED Provider: Kristi Castanon PA-C HPI narrative: 53-year-old female with a history of cardiomyopathy, hypertension, migraine, asthma and anxiety presents with chest pain x1 day. Pain over left anterior chest, radiates to the right an up the backside of her neck. Pain worse with palpation of chest wall, of the back in the neck. Patient denies trauma, overuse injury, new activity or heavy lifting. Denies associated diaphoresis, shortness of breath. Denies recent cough or cold symptoms, no fevers. Regard to the headache, the pain is retro-orbital, greater on the right versus the left, unable to describe the nature of the pain. Associated photophobia, phonophobia and nausea. Related Data Previous Rx's ?Medication ?Instructions ?Recorded DEPENDS Adult Pull ups (MEDIUM) #100 ea 02/17/22 aspirin 81 mg chewable tablet 81 mg PO DAILY 30 days #30 tabs 10/04/23 fluticasone furoate 100 1 inh inhalation DAILY #60 ea 10/16/23 mcg-vilanterol 25 mcg/dose inhalation powder (Breo Ellipta) blood pressure monitor #1 ea 11/09/23 carvedilol 25 mg tablet (Coreg) 25 mg PO BID 90 days #180 tabs 01/18/24 isosorbide mononitrate 60 mg 60 mg PO DAILY 90 days #90 tabs 01/18/24 tablet,extended release 24 hr sacubitril 49 mg-valsartan 51 mg 1 tab PO BID #60 tabs 02/14/24 tablet (Entresto) loratadine 10 mg tablet 10 mg PO DAILY #90 tabs 03/14/24 omeprazole 40 mg capsule,delayed 40 mg PO DAILY PRN Acid Reflux 90 03/14/24 release days #90 caps cholecalciferol (vitamin D3) 50 50 mcg PO DAILY 90 days #90 caps 03/15/24 mcg (2,000 unit) capsule prochlorperazine maleate 10 mg 10 mg PO Q8H PRN nausea and 03/20/24 tablet (Compazine) vomiting #9 tabs Allergies Allergy/AdvReac Type Severity Reaction Status Date / Time No Known Allergies Allergy Verified 03/20/24 09:13 [No Known Allergies*] Review of Systems 2 Review of Systems: Yes all other systems are reviewed and are negative Constitutional: Constitutional: Denies fatigue, Denies fever(s) and Reports headache(s) Eyes: Eyes: Reports photophobia ENT: Reports headache(s) and Reports neck pain Cardiovascular: Cardiovascular: Reports chest pain Respiratory: Respiratory: Denies cough and Denies wheezing Gastrointestinal: Gastrointestinal: Denies abdominal pain and Reports nausea Musculoskeletal: Musculoskeletal: Reports back pain and Reports neck pain Neurologic: Reports headache(s) Endocrine: Endocrine: Denies fatigue Allergic/Immunologic: Allergic/Immunologic: Denies wheezing PMFSH Past Medical History Attestation statement: The following information was validated with the patient. Medical History Hypertensive emergency Elevated troponin Vitamin D deficiency Essential hypertension Overweight (BMI 25.0-29.9) Smoker Anxiety Insomnia Lumbar spondylosis Allergic rhinitis Hemorrhagic gastritis Asthma Surgical History History of sleeve gastrectomy Family History Family History Father No problems noted. Mother No problems noted. Social History Social History Household Members: None Housing: Apartment Do you presently have visiting nurse or other home services: Yes Alcohol intake: current Alcohol intake frequency: a few times a week Patient Tobacco Use Status: Current someday Tobacco user Tobacco use type: Cigarette Cigarettes Per Day: 4 Smoked in Last 30 Days: No e-Cigarette/Vaping Use: Never Used Second Hand Smoke Exposure: Yes Use of substances other than those prescribed or required for medical reasons: No Substance Use Type: Crack/Cocaine Advance Directives: No Advance Directives Information Provided: Yes Patient : No service: No Current occupational status: disabled Cognitive needs: No Hearing needs: No Vision needs: No Physical Exam 2 Vital Signs: Vital Signs: Last Vital Signs Temp 98.3 F 03/20/24 12:12 Pulse 68 03/20/24 14:18 Resp 14 03/20/24 14:18 BP 148/76 H 03/20/24 14:18 Pulse Ox 96 03/20/24 14:18 O2 Del Method Room Air 03/20/24 14:18 BMI result Body Mass Index 27.4 Const: Other: Alert, overall well-appearing Orientation/consciousness: patient oriented x3 Eyes: Direct Ophthalmoscopy: photophobia Neck: Other: Full range of motion of the neck, palpable pain bilateral sides of the neck with an paraspinous distribution, Chest: Other: Pain elicited with palpation of left anterior chest wall, no deformity no swelling no erythema or ecchymosis Resp: Other: Nonlabored respirations Cardio: Other: Normal peripheral perfusion, radial pulses +2 bilaterally Back/Spine/Pelvis: Other: Pain with palpation over bilateral trapezius muscle distribution Skin: Other: Warm dry no rash Neuro: General: patient oriented x3, gait normal, no focal motor deficits and CN's II-XI intact bilaterally Psych: Other: Calm cooperative Medications Administered Discontinued Medications Generic Name Dose Route Start Last Admin Trade Name Freq PRN Reason Stop Dose Admin Carvedilol 25 mg 03/20/24 11:15 03/20/24 12:05 Carvedilol 25 Mg Tablet PO 03/20/24 11:16 25 mg ONCE ONE Administration Protocol Diphenhydramine HCl 25 mg 03/20/24 11:14 03/20/24 12:03 Diphenhydramine Hcl 50 Mg/Ml Vial IVPUSH 03/20/24 11:15 25 mg ONCE ONE Administration Sodium Chloride 500 mls @ 500 mls/hr 03/20/24 11:14 03/20/24 13:08 Ns IV 03/20/24 12:13 Infused .Q1H ONE Infusion Isosorbide Mononitrate 60 mg 03/20/24 11:15 03/20/24 12:11 Isosorbide Mononitrate 60 Mg Tab.Er.24h PO 03/20/24 11:16 60 mg ONCE ONE Administration Protocol Ketorolac Tromethamine 15 mg 03/20/24 11:14 03/20/24 12:11 Ketorolac Tromethamine 15 Mg/Ml Vial IVPUSH 03/20/24 11:15 15 mg ONCE ONE Administration Prochlorperazine Edisylate 10 mg 03/20/24 11:14 03/20/24 12:11 Prochlorperazine Edisylate 10 Mg/2 Ml Vial IVPUSH 03/20/24 11:15 10 mg ONCE ONE Administration Medical Decision Making Medical Decision Making [facility] Narrative: 53-year-old female with a history of cardiomyopathy, hypertension, migraine, asthma and anxiety presents with chest pain x1 day. Pain over left anterior chest, radiates to the right an up the backside of her neck. Pain worse with palpation of chest wall, of the back in the neck. Patient denies trauma, overuse injury, new activity or heavy lifting. Denies associated diaphoresis, shortness of breath. Denies recent cough or cold symptoms, no fevers. Regard to the headache, the pain is retro-orbital, greater on the right versus the left, unable to describe the nature of the pain. Associated photophobia, phonophobia and nausea. Problem: Hypertension, migraine History: Per patient I have considered the following differential diagnoses: ACS, chest wall strain, dissection, migraine, intracranial hemorrhage, VAD Plan: In regard to the chest pain, this is musculoskeletal in nature, this is not consistent with ACS, screening labs including a cardiac enzyme, EKG and chest x-ray we will be obtained. She is also having pain over bilateral neck and across the upper back, perhaps she is having a tension type headache versus a migraine, however the headache is migrainous in nature, she has had them in the past, we will treat with migraine cocktail. Given neck pain with a headache, I also considered VAD, however she does not have a mechanism of injury and she is neurologically intact. Also considered dissection given she is complaining of both chest and back pain, however she is neurovascularly intact, she is not overtly hypertensive, to note, she is somewhat hypertensive but she also states she did not take her morning medication, we will order them now. I have independently reviewed the following tests: Labs: Slight leukocytosis, not anemic, no electrolyte abnormality, 1st troponin 31.3 we will obtain a delta trop 25.1 EKG: Normal sinus rhythm, rate of 64, no ischemic changes no ectopy Chest x-ray: Lab Data 03/20/24 10:46 03/20/24 10:46 Labs: Lab Results 03/20/24 03/20/24 Range/Units 10:46 14:27 WBC 11.1 H (4.8-10.8) X10*3/uL RBC 3.93 L (4.20-5.50) X10*6/uL Hgb 12.3 (12.0-16.0) g/dl Hct 35.5 L (37.0-47.0) % MCV 90.3 (80.0-98.0) fL MCH 31.3 (27.0-33.0) pg MCHC 34.6 (31.0-35.0) g/dl RDW 13.0 (11.0-16.0) % Plt Count 302 (160-400) X10*3/uL MPV 10.1 (9.4-12.3) fL Immature Gran % (Auto) 0.3 (0.0-0.4) % Neut % (Auto) 81.5 H (45-73) % Lymph % (Auto) 11.1 L (20-40) % [place] % (Auto) 6.4 (2-11) % Eos % (Auto) 0.4 (0-4) % Baso % (Auto) 0.3 (0-2) % Lymph # (Auto) 1.2 (1.2-4.9) X10*3/uL [place] # (Auto) 0.7 (0.1-1.2) X10*3/uL Eos # (Auto) 0.0 (0.0-0.4) X10*3/uL Baso # (Auto) 0.0 (0.0-0.2) X10*3/uL Abs Immat Gran (auto) 0.03 (0.00-0.03) X10*3/uL Absolute Neuts (auto) 9.1 H (2.0-8.3) x10*3/uL Absolute Nucleated RBC 0.000 (0.0-0.012) X10*3/uL Nucleated RBC % (auto) 0.0 (0.0-0.2) /100WBC Sodium 140 (135-145) mmol/L Potassium 3.9 (3.3-5.1) mmol/L Chloride 105 (96-108) mmol/L Carbon Dioxide 32 H (22-29) mmol/L Anion Gap 7 L (12-20) BUN 12 (9-16) mg/dL Creatinine 0.81 (0.5-1.4) mg/dL Estim Creat Clear Calc 69.7 Estimated GFR > 60 Random Glucose 89 (60-115) mg/dL Calcium 8.8 (8.4-10.2) mg/dL Troponin I High Sens 31.3 H 25.1 H (<3.5-17.0) ng/L Influenza Type A (PCR) NEGATIVE (Negative) Influenza Type B (PCR) NEGATIVE (Negative) RSV RNA Qual (PCR) NEGATIVE (Negative) SARS-CoV-2 RNA (RT-PCR) NEGATIVE (Negative) Discharge Plan Discharge Clinical Impression: Chest wall pain, Migraine Patient Disposition: Home, Self-Care Instructions: Chest Pain (ED), Migraine Headache (ED) Additional Instructions: In regard to your chest pain it is most consistent with chest wall pain. See home care instructions. You were also treated for a migraine headache that responded to our migraine cocktail. Take the following medications together at the same time, if you develop a similar headache. All of your screening labs including 2 cardiac enzymes were negative, there were no concerning changes on the EKG in your chest x-ray is clear. Compazine 10 mg Benadryl 25 mg OTC Ibuprofen 600 mg OTC Tylenol 1000 mg OTC You can repeat the combination of these medications every 8 hours Follow up with your primary care provider as needed Prescriptions: New prochlorperazine maleate [Compazine] 10 mg tablet 10 mg PO Q8H PRN (Reason: nausea and vomiting) Qty: 9 0RF No Action fluticasone furoate-vilanterol [Breo Ellipta] 100-25 mcg/dose blister with device 1 inh inhalation DAILY Qty: 60 3RF (DME) blood pressure monitor Kit See Rx Instructions .Route Qty: 1 0RF Rx Instructions: As directed - use to monitor BP daily as instructed omeprazole 40 mg capsule,delayed release(DR/EC) 40 mg PO DAILY PRN (Reason: Acid Reflux) 90 Days Qty: 90 1RF loratadine 10 mg tablet 10 mg PO DAILY Qty: 90 3RF cholecalciferol (vitamin D3) 50 mcg (2,000 unit) capsule 50 mcg PO DAILY 90 Days Qty: 90 3RF aspirin 81 mg Tablet,Chewable 81 mg PO DAILY 30 Days Qty: 30 0RF (DME) DEPENDS Adult Pull ups (MEDIUM) medium See Rx Instructions .Route .MEDSUPPLY Qty: 100 12RF Rx Instructions: As directed carvedilol [Coreg] 25 mg tablet 25 mg PO BID 90 Days Qty: 180 1RF Rx Instructions: must administer with a meal/food isosorbide mononitrate 60 mg tablet extended release 24 hr 60 mg PO DAILY 90 Days Qty: 90 1RF Entresto 49-51 mg tablet 1 tab PO BID Qty: 60 2RF Rx Instructions: Stop Losartan Start Entresto - 1 tab twice daily Print Language: Tajik
[2024-03-20 11:34] LABS: Influenza A PCR NEGATIVE (Negative); Influenza B PCR NEGATIVE (Negative); Resp Syncy Virus RNA Qual PCR NEGATIVE (Negative); SARS COV2 PCR INHOUSE NEGATIVE (Negative)
[2024-03-20] MEDS: 0.9 % Sodium Chloride 500 ML IV (12:02)
[2024-03-20] MEDS: diphenhydrAMINE HCL 50 MG/ML VIAL 25 MG IVPUSH (12:03)
[2024-03-20] MEDS: carvediloL 25 MG TABLET PO (12:05)
[2024-03-20] MEDS: Ketorolac Tromethamine 15 MG/ML VIAL IVPUSH (12:11)
[2024-03-20] MEDS: Prochlorperazine Edisylate 10 MG/2 ML VIAL IVPUSH (12:11)
[2024-03-20] MEDS: Isosorbide Mononitrate 60 MG TAB.ER.24H PO (12:11)
[2024-03-20 14:59] LABS: Troponin-I High Sensitivity 25.1 ng/L (<3.5-17.0)
== END 2024-03-20 15:45 | disposition home or self-care (01) ==
PROVIDERS: Physician Assistant Medical; Emergency Provider Student in an Organized Health Care Education/Training Program; PCP Internal Medicine
DX: R07.89 Other chest pain (principal); G43.909 Migraine, unspecified, not intractable, without status migrainosus; R11.2 Nausea with vomiting, unspecified; Z03.818 Encounter for observation for suspected exposure to other biological agents ruled out; Z79.899 Other long term (current) drug therapy
CPT/HCPCS: 0241U; 36415; 71046; 80048; 84484; 85025; 93005; 96361; 96374; 96375; 99284; 99285; J0737; J1200; J1885

== ENCOUNTER 2024-05-29 14:16 | Outpatient (AMB) | payer OTHER, SELFPAY ==
--- NOTE | 2024-05-29 14:19 | A.OFFVIS_ITS ---
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 Allergies No Known Allergies [No Known Allergies*] Allergy (Verified 05/29/24 14:22) Medication List - Last Reconciled 05/29/24 by Alana Uriostegui, HVAC DESIGN MECHANICAL ENGINEER-C albuterol sulfate 90 mcg/actuation (Ventolin HFA) inhalation aspirin 81 mg PO DAILY 90 days blood pressure monitor As directed - use to monitor BP daily as instructed carvedilol 6.25 mg PO BID cholecalciferol (vitamin D3) 50 mcg PO DAILY 90 days cyanocobalamin (vitamin B-12) 1,000 mcg PO DAILY 90 days [DEPENDS Adult Pull ups (MEDIUM) As directed] fluticasone furoate-vilanterol 100-25 mcg/dose (Breo Ellipta) 1 inh inhalation DAILY isosorbide mononitrate ER 60 mg PO DAILY 90 days loratadine 10 mg PO DAILY losartan 100 mg PO DAILY omeprazole 40 mg PO DAILY PRN 90 days prochlorperazine maleate (Compazine) 10 mg PO Q8H PRN HPI HPI 3m follow up: Details: Kourtney is a 53-year-old female with past medical history of smoking, hypertension, cardiomyopathy who was scheduled to undergo a nuclear stress test however test was canceled that day due to hypertension. She now presents for follow-up. Today she reports she was having lightheadedness from 2 of her blood pressure medicines and stopped them. She says she is no longer taking Entresto or carvedilol. She has been checking her blood pressures at home and finds they are always elevated. She says she feels entirely fine and denies headache or vision troubles. On last visit she admitted to having a high salt diet, but now feels she has been better. She denies any chest discomfort at rest or with activity. No shortness of breath, PND, orthopnea or edema. No lightheadedness, presyncope, syncope, falls. Remains active during the day and says she tolerates it well.. [facility] Medical History Hypertensive emergency Elevated troponin Vitamin D deficiency Essential hypertension Overweight (BMI 25.0-29.9) Smoker Anxiety Insomnia Lumbar spondylosis Allergic rhinitis Hemorrhagic gastritis Asthma Surgical History History of sleeve gastrectomy Family History Father No problems noted. Mother No problems noted. Social History Household Members: None Housing: Apartment Do you presently have visiting nurse or other home services: Yes Alcohol intake: current Alcohol intake frequency: a few times a week Patient Tobacco Use Status: Current someday Tobacco user Tobacco use type: Cigarette Cigarettes Per Day: 4 e-Cigarette/Vaping Use: Never Used Second Hand Smoke Exposure: Yes Substance Use Type: Crack/Cocaine service: No Current occupational status: disabled Cognitive needs: No Hearing needs: No Vision needs: No Review of Systems Const All systems reviewed & are unremarkable except as noted in HPI and below ENT Denies dizziness Card Denies chest pain, Denies chest pain at rest, Denies chest pain with activity, Denies rapid heart rate, Denies pedal edema, Denies edema, Denies leg edema, Denies lightheadedness, Denies palpitations, Denies dyspnea, Denies dyspnea on exertion and Denies orthopnea Resp Denies cough, Denies dyspnea and Denies dyspnea on exertion GI Denies hematochezia and Denies change in stool character Musc Denies abnormal gait, Denies limited range of motion, Denies muscle cramps, Denies muscle weakness, Denies numbness, Denies radiating pain into limb, Denies stiffness and Denies tingling Neuro Denies abnormal gait, Denies dizziness, Denies numbness and Denies tingling Endo Denies palpitations Physical Exam Vital Signs: Last Vital Signs Pulse 96 05/29/24 14:20 BP 190/100 H 05/29/24 14:20 BMI result Body Mass Index 29.8 Const General: cooperative, healthy appearing, comfortable and no acute distress Orientation/consciousness: patient oriented x3 Neck Neck: Yes normal visual inspection and Yes no JVD Resp Effort & Inspection: normal respiratory effort Auscultation: clear to auscultation bilaterally, no crackles, no rales, no rhonchi and no wheezes Cardio Jugular venous distension: no JVD Rate: regular rate Rhythm: regular rhythm Heart sounds: S1 normal heart sound present, S2 normal heart sound present, no murmurs and no rubs GI Inspection: Yes normal to inspection Skin General skin exam: no rashes or lesions noted Neuro General: patient oriented x3 Extrem General: Yes normal to inspection, No no pedal edema and No calf tenderness Psych Appearance: grossly normal Mental Status: mental status grossly normal Speech and movement: Normal speech and movement present Assessment & Plan Assessment & Plan (1) Cardiomyopathy: Code(s): I42.9 - Cardiomyopathy, unspecified Category: Medical Qualifiers: Cardiomyopathy type: unspecified Qualified Code(s): I42.9 - Cardiomyopathy, unspecified Plan: History of cardiomyopathy. Prior echocardiogram 02/2022 showed EF 30-35%, basal inferior akinetic. At that time her cardiomyopathy was thought to be hypertension related. She was not seen in our office between 06/13/2022 and hospital admit for hypertensive urgency 10/02/2023. At that time she did have mildly elevated troponin levels. Her blood pressure Isosorbide was added and her carvedilol and losartan doses were increased. Echocardiogram during admission showed EF 36%, grade 1 diastolic dysfunction, moderate LVH, no reported wall motion abnormality. On follow-up visit her blood pressure was normal range. Her losartan was changed to Entresto. Today she reports that she was getting lightheaded from 2 over blood pressure medicines and she stopped them. She brings her pills to this visit and she is only taking losartan 100 mg daily and isosorbide 60 mg daily for her cardiomyopathy and hypertension. Blood pressure today 190/100. Recheck done by me 190/102 after sitting for 10 minutes. Stress the importance of good blood pressure control and how it can affect her heart and lead to heart failure, CT, stroke. Reviewed the need for ongoing low-salt diet. Will restart carvedilol at lower dose of 6.25 mg b.i.d.. Will arrange for office blood pressure check in 2 weeks. Cardiology office visit in 1 month. She still needs a nuclear stress test to evaluate for ischemia however blood pressure is currently not controlled. Emergency care if needed for symptoms. Cardiology follow-up 3 months, sooner if needed. (2) Hypertension: Code(s): I10 - Essential (primary) hypertension Category: Medical Plan: As above (3) Chest pain: Code(s): R07.9 - Chest pain, unspecified Category: Medical Plan: Chest discomfort at time of last hospitalization. Troponin mildly elevated. Urine cocaine screen was positive. EKG does showed sinus bradycardia with T- wave inversions in the lateral leads, voltage criteria for LVH, rate 58. Symptoms were thought to be related to uncontrolled hypertension, cocaine use. Ischemia still needs to be ruled out. Nuclear stress test still pending. Continue aspirin, atorvastatin, isosorbide and carvedilol.. (4) Abnormal EKG: Code(s): R94.31 - Abnormal electrocardiogram [ECG] [EKG] Category: Medical Plan: As above Plan Time spent on chart review, documentation, interview and assessment Orders: Orders Basic Metabolic Panel Today I10 - Essential (primary) hypertension Medications: New carvedilol must administer with a meal/food 6.25 mg PO BID 60 tabs 5RF Coding Level of Care Code Est Pt Level 4 (96298) Complex EM visit Add On G2211 Diagnoses Cardiomyopathy, unspecified type I42.9 Cardiomyopathy type: unspecified Hypertension I10 Chest pain R07.9 Abnormal EKG R94.31
[2024-05-29 14:20] VITALS: BP 190/100; PULSE 96; BMI 29.8
== END 2024-05-29 15:02 | disposition home or self-care (01) ==
PROVIDERS: PCP Internal Medicine; Visit Provider Nurse Practitioner Family
DX: I42.9 Cardiomyopathy, unspecified (principal); I10 Essential (primary) hypertension; R07.9 Chest pain, unspecified; R94.31 Abnormal electrocardiogram [ECG] [EKG]
CPT/HCPCS: 99214; G2211

== ENCOUNTER → 2024-05-29 14:16 | Outpatient (BNVA) | payer OTHER, SELFPAY | PROVIDERS: PCP Internal Medicine; Visit Provider Nurse Practitioner Family | DX: I42.9 Cardiomyopathy, unspecified (principal); I10 Essential (primary) hypertension; R07.9 Chest pain, unspecified; R94.31 Abnormal electrocardiogram [ECG] [EKG] | CPT/HCPCS: 99212 ==

== ENCOUNTER 2024-08-20 10:44 | Outpatient (REF) | payer OTHER, SELFPAY ==
[2024-08-20 12:12] LABS: Anion Gap 14 (12-20); Blood Urea Nitrogen 13 mg/dL (9-16); Calcium 9.5 mg/dL (8.4-10.2); Carbon Dioxide 26 mmol/L (22-29); Chloride 109 mmol/L (96-108); Estimated Glomerular Filt Rate 50; Glucose Random 89 mg/dL (60-115); Sodium 144 mmol/L (135-145)
--- OUTSIDE RECORDS SUMMARY | 2024-08-20 12:44 | XMS_ITS | Clinical Summary ---
Author Organization [facility] ity Address [address] [place] [address] Care Team Providers Care Inside Sales Advisor Name Role Phone Tanvir Nguyen MD Primary Care Provider [phone] Surgical History Surgery Date Site/Laterality Comments OTHER SURGICAL HISTORY PROCEDURE: GA LIG/TRNSXJ FLP TUBE ABDL/VAG APPR UNI/BI Medical History Medical History Date Comments Essential hypertension DX:Essent ial hypertension Anxiety state DX:Anxiety state Asthma DX:Asthma Abnormal cytological finding in specimen from cervix DX:Abnormal cytological find ing in specimen from cervix Family History Medical History Relation Name Comments Ovarian cancer Maternal Grandmother Hypertension Mother Breast cancer Neg Hx Cancer of Small Bowel Neg Hx Colon cancer Neg Hx Kidney cancer Neg Hx Pancreatic cancer Neg Hx Uterine cancer Neg Hx Relation Name Status Comments Maternal Grandmother Mother Social History Tobacco Use Types Packs/Day Years Used Date Smoking Tobacco: Light Smoker Smokeless Tobacco: Never Alcohol Use Standard Drinks/Week Comments No 0 (1 standard drink = 0.6 oz pur e alcohol) Comments Unknown Sex and Gender Information Value Date Recorded Sex Assigned at Not on file Legal Sex Female 8:05 AM EST Gender Identity Not on file Sexual Orientation Not on file Obstetrics History Last Filed Vital Signs Vital Sign Reading Time Taken Comments Blood Pressure 140/90 12/27/2022 1:27 PM EDT Pulse 85 12/27/2022 1:07 PM EDT Temperature - - Respiratory Rate - - Oxygen Saturation - - Inhaled Oxygen Concentration - - Weight 62.3 kg (137 lb 6.4 oz) 12/27/2022 1:07 P M EDT Height 154.9 cm (5' 1 ) 12/27/2022 1:07 PM EDT Body Mass Index 25.96 12/27/2022 1:07 PM EDT Plan of Treatment Upcoming Encounters Date Type Department Care Team (Late st Contact Info) Description 12/11/2024 1:45 PM EDT Office Visit Bariatric Surgery - [place] [address] [facility] [address] [place] [id number] Jennifer Alva MD [address] [facility] [address] [place] [address] Health Maintenance Due Date Last Done Comments Breast Cancer Screening 1970 DTaP,Tdap,and Td Vaccines (1 - Tdap) 1989 Hepatitis B Vaccines (1 of 3 - 19+ 3-dose series) 1989 Pneumococcal Vaccine: 50+ Ye ars (1 of 2 - PCV) 1989 Pneumococcal Vaccine: Pediat rics (0 to 5 Years) and At-Risk Patients (6 to 64 Years) (1 of 2 - PCV) 1989 Cervical Cancer Screening: P ap Smear 07/18/1991 Zoster Vaccines (1 of 2) 2020 Cholesterol Screening (Lipid Panel) 06/06/2023 Colorectal Cancer Screening: Colonoscopy 06/06/2023 Depression Screening 06/06/2023 HIV Screening 06/06/2023 Hepatitis C Screening 06/06/2023 Hypertension/CHF/CAD Annual BMP Blood Test 06/06/2023 Social Influencers of Health Screening 06/06/2023 COVID-19 Vaccine (2023-2 5 season) 2024 Influenza Vaccine (Season Ended) 2025 HIB Vaccines Aged Out No longer eligi ble based on patient's age to complete this topic HPV Vaccines Aged Out No longer eligi ble based on patient's age to complete this topic Hepatitis A Vaccines Aged Out No long er eligible based on patient's age to complete this topic IPV Vaccines Aged Out No longer eligi ble based on patient's age to complete this topic MMR Vaccines Aged Out No longer eligi ble based on patient's age to complete this topic Meningococcal ACWY Vaccine Aged Out N o longer eligible based on patient's age to complete this topic Meningococcal B Vaccine Aged Out No l onger eligible based on patient's age to complete this topic RSV Immunization Patients Un brynn 20 months Aged Out No longer eligible b ased on patient's age to complete this topic Varicella Vaccines Aged Out No longer eligible based on patient's age to complete this topic Care Teams Inside Sales Advisor Relationship Specialty Start Date End Date Tanvir Nguyen MD [address] [place] [address] Dr [address] ROBERTO Campbell PCP - General Internal Medicine 05/07/12
== END 2024-08-20 10:45 | disposition home or self-care (01) ==
LOC: HO.LAB 10:44
PROVIDERS: Nurse Practitioner Family; PCP Internal Medicine; Visit Provider Internal Medicine
DX: I10 Essential (primary) hypertension (principal)
CPT/HCPCS: 36415; 80048

== ENCOUNTER 2024-11-21 15:01 | Outpatient (AMB) | payer OTHER, SELFPAY ==
[2024-11-21 15:04] VITALS: BP 160/98; PULSE 66; O2SAT 97; BMI 29.3
--- NOTE | 2024-11-21 15:04 | MHC.PC.OV ---
Vital Signs 11/21/24 15:04 Height 5 ft 1 in Weight 155 lb BMI 29.3 BP 160/98 H Blood Pressure Location Lt brachial Position Sitting Pulse 66 Pulse Source Pulse Oximeter Pulse Oximetry (%) 97 Oxygen Delivery Method Room Air Intake Visit Reasons: cardiomyopathy, reschedule Adjunct Instructor Chemistry Required: No Accompanied by: Self / Same As Patient Allergies No Known Allergies (No Known Allergies*) Allergy (Verified 11/21/24 15:43) Medication List - Last Reconciled 11/21/24 by Tanvir Nguyen MD albuterol sulfate 90 mcg/actuation (Ventolin HFA) inhalation aspirin 81 mg PO DAILY 90 days blood pressure monitor As directed - use to monitor BP daily as instructed carvedilol 6.25 mg PO BID cholecalciferol (vitamin D3) 50 mcg PO DAILY 90 days cyanocobalamin (vitamin B-12) 1,000 mcg PO DAILY 90 days [DEPENDS Adult Pull ups (MEDIUM) As directed] fluticasone furoate-vilanterol 100-25 mcg/dose (Breo Ellipta) 1 inh inhalation DAILY isosorbide mononitrate ER 60 mg PO DAILY 90 days loratadine 10 mg PO DAILY losartan 100 mg PO DAILY omeprazole 40 mg PO DAILY PRN 90 days prochlorperazine maleate (Compazine) 10 mg PO Q8H PRN Tobacco use date assessed: 11/21/24 Dental Screening Dental Screen Date: 11/21/24 Did you have a dental visit in the last 12 months?: No Did you have a dental problem in the last 6 months where you did not have access to dental care?: No Was dental information given to patient?: Patient has dentist HPI cardiomyopathy, reschedule HPI Details Patient comes in today for her follow-up visit States that she feels okay She denies any headaches or dizziness Denies any chest pains, no increased shortness of breath No nausea/vomiting, no abdominal pain No change in bowel habits noted She admitted to stopping both her Entresto and carvedilol after her follow-up visit last year in January 2024 due to frequent dizziness while she was under medications She was seen by Cardiology earlier this year and was advised that her blood pressure was still significantly elevated at time she was started back on carvedilol at a lower dose of 6.25 mg BID She was advised to follow-up and to continue monitor her blood pressure and once her blood pressure is very controlled, they will send her for a nuclear stress test for further evaluation but this has not happened yet She has not been seen by Cardiology for follow-up since May 2024 and is scheduled for next appointment with them in early December 2024 She again has not been able to get her follow-up labs done prior to her visit today and she's had no labs done since March 2024 [facility] Medical History Hypertensive emergency Elevated troponin Vitamin D deficiency Essential hypertension Overweight (BMI 25.0-29.9) Smoker Anxiety Insomnia Lumbar spondylosis Allergic rhinitis Hemorrhagic gastritis Asthma Surgical History History of sleeve gastrectomy Family History Father No problems noted. Mother No problems noted. Social History Household Members: None Housing: Apartment Do you presently have visiting nurse or other home services: Yes Alcohol intake: current Alcohol intake frequency: a few times a week Patient Tobacco Use Status: Current someday Tobacco user Tobacco use type: Cigarette Cigarettes Per Day: 4 e-Cigarette/Vaping Use: Never Used Second Hand Smoke Exposure: Yes Substance Use Type: Crack/Cocaine service: No Current occupational status: disabled Cognitive needs: No Hearing needs: No Vision needs: No Questionnaire PHQ-9 Over the last 2 weeks, how often have you been bothered by any of the following problems? 1. Little interest or pleasure in doing things: not at all 2. Feeling down, depressed, or hopeless: not at all 3. Trouble falling or staying asleep, or sleeping too much: not at all 4. Feeling tired or having little energy: not at all 5. Poor appetite or overeating: not at all 6. Feeling bad about yourself - or that you are a failure or have let yourself or your family down: not at all 7. Trouble concentrating on things, such as reading the newspaper or watching television: not at all 8. Moving or speaking so slowly that other people could have noticed. Or the opposite - being so fidgety or restless that you have been moving around a lot more than usual: not at all 9. Thoughts that you would be better off or of hurting yourself in some way: not at all Total score: 0 Depression Screening Interpretation: Negative Depression Screening Done: Yes 11318 - PHQ-9 Billing: Yes Source: Developed by Drs. Cristi Arceo, Radha Egan, Jewel Nash and colleagues, with an educational jose from [employer]. Thrive Questionnaire Date Thrive assessed: 11/21/24 I am a: Patient What is your living situation today?: I choose not to answer this question Within the past 12 months, did the food you bought not last and you didn't have the money to get more?: I choose not to answer this question Within the past 12 months, did you worry whether your food would run out before you got money to buy more?: I choose not to answer this question Do you have trouble paying for medicines?: I choose not to answer this question Do you have trouble getting transportation to medical appointments?: No Do you have trouble paying your heating and electricity bill?: Yes Do you have trouble taking care of your child, family member or friend?: No Do you have trouble with day-to-day activities such as bathing, preparing meals, shopping, managing finances, etc.?: No Are you currently unemployed and looking for a job?: No Are you interested in more education?: No Please select the resources that you would like help with: None Currently or been in a relationship where the following occur: No concerns reported THRIVE Score: 1 AUDIT C Alcohol Use Questionnaire (AUDIT-C) 1. How often do you have a drink containing alcohol?: Monthly or less 2. How many drinks containing alcohol do you have on a typical day when you are drinking?: 1 or 2 3. How often do you have six or more drinks on one occasion?: Never Total Score: 1 Score Reviewed/Action Taken: Yes PORFIRIO-7 AMB Questionnaire PORFIRIO-7 Date PORFIRIO - 7 assessed: 11/21/24 Feeling nervous, anxious, or on edge: 0 = Not at all Not being able to stop or control worryin = Not at all Worrying too much about different things: 0 = Not at all Trouble relaxin = Not at all Being so restless that it is hard to sit still: 0 = Not at all Becoming easily annoyed or irritable: 0 = Not at all Feeling afraid as if something awful might happen: 0 = Not at all Total PORFIRIO-7 score (0-4 normal; 5-9 mild; 10-14 moderate; 15-21 severe): 0 Source: Developed by Drs. Cristi Arceo, Radha Egan, Jewel Nash and colleagues, with an educational jose from [employer]. Review of Systems Const Denies chills, Denies fatigue, Denies fever(s) and Denies headache(s) ENT Denies dysphagia, Denies dizziness, Denies otalgia, Denies headache(s), Reports hearing loss, Denies nasal congestion, Denies neck pain, Denies odynophagia and Reports sore throat Card Denies chest pain, Denies palpitations and Denies dyspnea Resp Denies chest congestion, Denies cough and Denies dyspnea GI Denies abdominal pain, Denies constipation, Denies dysphagia, Denies heartburn, Denies diarrhea, Denies nausea, Denies odynophagia and Denies vomiting Denies difficulty voiding, Denies nocturia, Denies dysuria, Reports urinary incontinence (at times) and Denies urinary urgency Musc Reports back pain (over the lower back; increased pain and spasms over both sides of spine) and Denies neck pain Skin/Breast Denies rash Neuro Denies dizziness and Denies headache(s) Psych Reports anxiety Endo Denies fatigue and Denies palpitations Physical exam (Primary Care) Vital Signs: Last Vital Signs Pulse 66 11/21/24 15:04 BP 160/98 H 11/21/24 15:04 Pulse Ox 97 11/21/24 15:04 Oxygen Delivery Method Room Air 11/21/24 15:04 BMI result Body Mass Index 29.3 Tobacco/Smoking Status: Tobacco use Status Tobacco use date assessed 11/21/24 11/21/24 15:11 Patient Tobacco Use Status Current someday Tobacco 11/21/24 15:11 Tobacco use type Cigarette 11/21/24 15:11 e-Cigarette/Vaping Use Never Used 11/21/24 15:11 PHQ-9: PHQ-9 Score PHQ-9: Total score 0 11/21/24 15:48 Depression Screening Interpretation: Negative Thrive Assessment: Date of Thrive Assessment Date Thrive assessed 11/21/24 11/21/24 15:11 Currently or been in a relationship where the following occur: No concerns reported Const General: no acute distress and alert HENMT Ears: TM's normal bilaterally and EAC's normal Throat: Yes posterior oropharynx normal and Yes tonsils normal (no TP congestion) Neck Neck: Yes supple and No lymphadenopathy Thyroid: Thyroid normal Resp Auscultation: clear to auscultation bilaterally, no crackles and no rales Cardio Rate: regular rate Rhythm: regular rhythm Heart sounds: no murmurs GI Palpation (GI): Soft to palpation and nontender Auscultation: normal bowel sounds General: Yes no CVA tenderness Back/Spine/Pelvis Back: no CVA tenderness Thoracic/Lumbar Spine: lumbar spinal tenderness Skin Rashes: no rashes Extrem General: Yes no clubbing, cyanosis or edema Coding Level of Care Code Est Pt Level 4 (17752) Diagnoses Essential hypertension I10 Cardiomyopathy, unspecified type I42.9 Cardiomyopathy type: unspecified Moderate persistent asthma without complication J45.40 Asthma severity: moderate Asthma persistence: persistent Asthma complication type: uncomplicated Allergic rhinitis, unspecified seasonality, unspecified trigger J30.9 Allergic rhinitis trigger: unspecified Allergic rhinitis seasonality: unspecified Chronic gastritis with bleeding, unspecified gastritis type K29.51 Gastritis type: unspecified gastritis Chronicity: chronic Vitamin D deficiency E55.9 Lumbar spondylosis M47.816 Primary insomnia F51.01 Insomnia type: primary Anxiety F41.9 Smoker F17.200 Overweight (BMI 25.0-29.9) E66.3 Additional Codes PHQ-9 - 66491 - PHQ-9 Billing: Yes ([id number]) Assessment & Plan Assessment & Plan (1) Essential hypertension: Code(s): I10 - Essential (primary) hypertension Category: Medical Plan: Reinforced low sodium diet - goal is systolic BP of at least 120 to 130 mm or less Continue Losartan 100 mg QD and Carvedilol 6.25 mg BID She apparently self discontinued her medications except for her losartan a few months ago when she was still experiencing recurrent dizziness She was seen by Cardiology and was strongly advised to continue on her blood pressure medications as her blood pressure remains uncontrolled including today She was started back on Carvedilol by cardiology but at a lower dose of 6.25 mg BID Continue Losartan 100 mg QD and Carvedilol 6.25 mg BID She is reminded to try monitoring her blood pressure regularly (2) Cardiomyopathy: Code(s): I42.9 - Cardiomyopathy, unspecified Category: Medical Qualifiers: Cardiomyopathy type: unspecified Qualified Code(s): I42.9 - Cardiomyopathy, unspecified Plan: Echocardiogram done back in February 2022 revealed moderately decreased left ventricular systolic function, with the visually estimated ejection fraction between 30-35%. The basal inferior segment is akinetic but no obvious valvular pathology was seen on the study Continue Aspirin 81 mg QD and Carvedilol 6.25 mg BID; she self-discontinued her Isosorbide Mononitrate ER 60 mg QD and Atorvastatin a few months ago She still has not been able to get her nuclear stress testing done because of her uncontrolled blood pressure Follow up with cardiology as scheduled Will have her check her labs and fasting lipids TERENCE for follow up (3) Asthma: Code(s): J45.909 - Unspecified asthma, uncomplicated Category: Medical Qualifiers: Asthma severity: moderate Asthma persistence: persistent Asthma complication type: uncomplicated Qualified Code(s): J45.40 - Moderate persistent asthma, uncomplicated Plan: Controlled Continue Breo Ellipta 100-25 mcg 1 inhalation QD and Albuterol HFA 2 inhalations Q 6 hours PRN (4) Allergic rhinitis: Code(s): J30.9 - Allergic rhinitis, unspecified Category: Medical Qualifiers: Allergic rhinitis trigger: unspecified Allergic rhinitis seasonality: unspecified Qualified Code(s): J30.9 - Allergic rhinitis, unspecified Plan: Continue Fluticasone 50 mcg nasal spray QD PRN and Loratadine 10 mg QD PRN (5) Hemorrhagic gastritis: Code(s): K29.71 - Gastritis, unspecified, with bleeding Category: Medical Qualifiers: Gastritis type: unspecified gastritis Chronicity: chronic Qualified Code(s): K29.51 - Unspecified chronic gastritis with bleeding Plan: EGD done back in 2015 ([address] Llanos) revealed findings of hemorrhagic gastritis with a small hiatal hernia Reinforced dietary restrictions Continue Omeprazole 40 mg QD Follow up with GI as scheduled (6) Vitamin D deficiency: Code(s): E55.9 - Vitamin D deficiency, unspecified Category: Medical Plan: Continue Vitamin D3 2000 units QD (7) Lumbar spondylosis: Code(s): M47.816 - Spondylosis without myelopathy or radiculopathy, lumbar region Category: Medical Plan: Reinforced activity and weight lifting restrictions She was taking Ibuprofen 800 mg TID PRN for pain but have advised her that with her cardiac issues, she should NOT continue taking Ibuprofen (8) Insomnia: Code(s): G47.00 - Insomnia, unspecified Category: Medical Qualifiers: Insomnia type: primary Qualified Code(s): F51.01 - Primary insomnia Plan: Sleep hygiene reinforced She used to take Rozerem but states that she is currently not taking anything for sleep (9) Anxiety: Code(s): F41.9 - Anxiety disorder, unspecified Category: Medical Plan: She was taking Citalopram 20 mg QD in the past but self-discontinued this at some point Follow up with psychiatry as scheduled (10) Smoker: Code(s): F17.200 - Nicotine dependence, unspecified, uncomplicated Category: Social Hx Plan: Patient is counseled again on complete smoking cessation (11) Overweight (BMI 25.0-29.9): Code(s): E66.3 - Overweight Category: Medical Plan: Reinforced diet/exercise as tolerated/lose weight Plan Follow-up in 3 months Orders: Orders Comprehensive [place]. Panel Fast 11/21/24 E78.00 - Pure hypercholesterolemia, unspecified Lipid Panel 11/21/24 E78.00 - Pure hypercholesterolemia, unspecified B Type Natriuretic Peptide 11/21/24 I50.9 - Heart failure, unspecified Complete Blood Count Auto Diff 11/21/24 D64.9 - Anemia, unspecified TSH reflex Free T4 11/21/24 E78.00 - Pure hypercholesterolemia, unspecified UA CC w/rflx Micro + Cult 11/21/24 R30.0 - Dysuria Vitamin D 25-OH Total 11/21/24 E55.9 - Vitamin D deficiency, unspecified Medications: New amlodipine 2.5 mg PO DAILY 30 tabs 3RF 30 days
--- OUTSIDE RECORDS SUMMARY | 2024-11-21 15:04 | XMS_ITS | Patient Health Record ---
Author Organization [facility] Address [address] [place] [address] Care Team Providers Care Seed Sales Manager Name Role Phone Cristi Mcknight Unavailable [phone] Reason For Referral No Information Plan Of Treatment No Information
--- OUTSIDE RECORDS SUMMARY | 2024-11-21 15:04 | XMS_ITS | Clinical Summary ---
Author Organization [facility] ity Address [address] [place] [address] Care Team Providers Care Costumer Assistant Name Role Phone Tanvir Nguyen MD Primary Care Provider [phone] Surgical History Surgery Date Site/Laterality Comments OTHER SURGICAL HISTORY PROCEDURE: [place] LIG/TRNSXJ FLP TUBE ABDL/VAG APPR UNI/BI Medical [...] PM EDT Office Visit Bariatric Surgery - [place] [address] [place] [phone] Jennifer Alva MD [address] [facility] [address] [place] [address] Health Maintenance Due Date Last Done Comments Breast Cancer Screening 1970 DTaP,Tdap,and Td Vaccines (1 - Tdap) 1989 Hepatitis B Vaccines (1 of 3 - 19+ 3-dose series) 1989 Pneumococcal Vaccine: 50+ Ye ars (1 of 2 - PCV) 1989 Cervical Cancer Screening: P ap Smear 07/18/1991 Zoster Vaccines (1 of 2) 2020 Cholesterol Screening (Lipid Panel) 06/06/2023 Colorectal Cancer Screening: Colonoscopy 06/06/2023 Depression Screening 06/06/2023 HIV Screening 06/06/2023 Hepatitis C Screening 06/06/2023 Hypertension/CHF/CAD Annual BMP Blood Test 06/06/2023 Social Influencers of Health Screening 06/06/2023 COVID-19 Vaccine ( - 2023-2 5 season) 2024 Influenza Vaccine (#1) 2025 HIB Vaccines Aged Out No longer [...] age to complete this topic Care Teams Costumer Assistant Relationship Specialty Start Date End Date Tanvir Nguyen MD [address] [place] [address] [address] ROBERTO Campbell PCP - General Internal Medicine 05/07/12
== END 2024-11-21 15:49 | disposition home or self-care (01) ==
LOC: HO.HMCH 15:02
PROVIDERS: PCP Internal Medicine; Visit Provider Internal Medicine
DX: I10 Essential (primary) hypertension (principal); I42.9 Cardiomyopathy, unspecified; J45.40 Moderate persistent asthma, uncomplicated; J30.9 Allergic rhinitis, unspecified; K29.51 Unspecified chronic gastritis with bleeding; E55.9 Vitamin D deficiency, unspecified; M47.816 Spondylosis without myelopathy or radiculopathy, lumbar region; F51.01 Primary insomnia; F41.9 Anxiety disorder, unspecified; F17.200 Nicotine dependence, unspecified, uncomplicated; E66.3 Overweight

== ENCOUNTER → 2024-11-21 15:01 | Outpatient (BNVA) | payer OTHER, SELFPAY | PROVIDERS: PCP Internal Medicine; Visit Provider Internal Medicine | DX: I10 Essential (primary) hypertension (principal); I42.9 Cardiomyopathy, unspecified; J45.40 Moderate persistent asthma, uncomplicated; J30.9 Allergic rhinitis, unspecified; K29.51 Unspecified chronic gastritis with bleeding; E55.9 Vitamin D deficiency, unspecified; M47.816 Spondylosis without myelopathy or radiculopathy, lumbar region; F51.01 Primary insomnia; F41.9 Anxiety disorder, unspecified; E66.3 Overweight; Z68.29 Body mass index [BMI] 29.0-29.9, adult; F17.210 Nicotine dependence, cigarettes, uncomplicated; Z79.899 Other long term (current) drug therapy; Z13.31 Encounter for screening for depression; Z13.39 Encounter for screening examination for other mental health and behavioral disorders | CPT/HCPCS: 96127; 99212 ==

== ENCOUNTER 2024-12-29 10:52 | Outpatient (REF) | payer OTHER, SELFPAY ==
[2024-12-29 11:13] LABS: MANUAL DIFF FLAG NO
[2024-12-29 11:32] LABS: Hematocrit 41.6 % (37.0-47.0); Hemoglobin 14.0 g/dl (12.0-16.0); Imm Gran Abs Auto 0.02 X10*3/uL (0.00-0.03); Imm Gran Pct Auto 0.2 % (0.0-0.4); Lymphocytes Absolute Auto 2.9 X10*3/uL (1.2-4.9); Mean Corpuscular HGB Conc 33.7 g/dl (31.0-35.0); Mean Corpuscular Hemoglobin 31.2 pg (27.0-33.0); Mean Corpuscular Volume 92.7 fL (80.0-98.0); NRBC Abs Auto 0.000 X10*3/uL (0.0-0.012); NRBC Pct Auto 0.0 /100WBC (0.0-0.2); Platelet Count 299 X10*3/uL (160-400); Red Blood Count 4.49 X10*6/uL (4.20-5.50); White Blood Count 9.6 X10*3/uL (4.8-10.8)
[2024-12-29 12:00] LABS: B Type Natriuretic Peptide 43 pg/mL (<100)
[2024-12-29 12:02] LABS: Appearance Urine Clear; Glucose Urine UA Negative (Negative); PH 6.0 (5.0-9.0); Specific Gravity - Urine 1.025 (1.005-1.025)
--- OUTSIDE RECORDS SUMMARY | 2024-12-29 12:09 | XMS_ITS | Clinical Summary ---
Author Organization 175 [facility] Address 175 [place] [address] Phone Care Team Providers Care Loan Review Analyst Name Role Phone Tanvir Nguyen MD Primary Care Provider Allergies No known active allergies Medications amLODIPine (NORVASC) 2.5 mg tablet Take 1 tablet (2.5 mg total) by mouth 1 (one) time each day. 11/21/2024 Active aspirin 81 mg chewable tablet Chew 1 tablet (81 mg total) 1 (one) time each day. 11/12/2024 Active atorvastatin (LIPITOR) 40 mg tablet Take 1 tablet (40 mg total) by mouth at bedtime. 04/17/2024 Active carvediloL (COREG) 25 mg tablet Take 1 tablet (25 mg total) by mouth 2 (two) times a day with meals. 04/17/2024 Active cholecalciferol (VITAMIN D-3) 50 mcg (2,000 unit) capsule Take 1 capsule (2,000 Units total) by mouth 1 (one) time each day. 08/14/2024 Active cyanocobalamin, vitamin B-12, 1,000 mcg capsule Take 1 capsule by mouth 1 (one) time each day. 08/14/2024 Active Breo Ellipta 100-25 mcg/dose inhaler Inhale 1 puff by mouth 1 (one) time each day. 11/21/2024 Active loratadine (CLARITIN) 10 mg tablet Take 1 tablet (10 mg total) by mouth 1 (one) time each day. 10/02/2024 Active losartan (COZAAR) 100 mg tablet Take 1 tablet (100 mg total) by mouth 1 (one) time each day. 11/12/2024 Active omeprazole (PriLOSEC) [address] capsule Take 1 capsule (40 mg total) by mouth 1 (one) time each day. 11/12/2024 Active prochlorperazin e (COMPAZINE) 10 mg tablet Take 1 tablet (10 mg total) by mouth every 8 (eight) hours if needed. 03/20/2024 Active buPROPion XL (WELLBUTRIN XL) 150 mg 24 hr tabletIndicatio ns:Overweight Take 1 tablet (150 mg total) by mouth 1 (one) time each day. Do not crush, chew, or split. 30 each 12/11/2024 Active naltrexone (DEPADE) 50 mg tabletIndicatio ns:Overweight Take 0.5 tablets (25 mg total) by mouth 1 (one) time each day. 15 each 12/11/2024 5 Active Active Problems Problem Noted Date Diagnosed Date Hypertension 12/27/2022 Encounters Date Type Department Care Team Description 12/11/2024 1:45 PM EDT Office Visit Bariatric Surgery - [address] [place] [address] Jennifer Alva MD Overweight (Primary Dx); Severely overweight from Last 3 Months Surgical History Surgery Date Site/Laterality Comments OTHER SURGICAL HISTORY PROCEDURE: MD LIG/TRNSXJ FLP TUBE ABDL/VAG APPR UNI/BI Medical [...] Sign Reading Time Taken Comments Blood Pressure 153/82 12/11/2024 2:07 PM EDT Pulse 84 12/11/2024 2:07 PM EDT Temperature 36.6 C (97.8 F) 12/11/2024 2:07 PM EDT Respiratory Rate - - Oxygen Saturation - - Inhaled Oxygen Concentration - - Weight 70.3 kg (155 lb) 12/11/2024 2:07 PM EDT Height 154.9 cm (5' 1 ) 12/11/2024 2:07 PM EDT Body Mass Index 29.29 12/11/2024 2:07 PM EDT Plan of Treatment Upcoming Encounters Date Type Department Care Team (Late st Contact Info) Description 06/16/2025 3:45 PM EST Office Visit Bariatric Surgery - [place] [address] [facility] [address] [place] [address] Jennifer Alva MD 175 [facility] [address] [place] [address] Health Maintenance Due Date Last Done Comments Breast Cancer Screening 1970 Hepatitis B Vaccines (1 of 3 - 19+ 3-dose series) 1989 Pneumococcal Vaccine: 50+ Ye ars (1 of 2 - PCV) 1989 Cervical Cancer Screening: P ap Smear 07/18/1991 Zoster Vaccines (1 of 2) 2020 Cholesterol Screening (Lipid Panel) 06/06/2023 Colorectal Cancer Screening: Colonoscopy 06/06/2023 HIV Screening 06/06/2023 Hepatitis C Screening 06/06/2023 Hypertension/CHF/CAD Annual BMP Blood Test 06/06/2023 Social Influencers of Health Screening 06/06/2023 COVID-19 Vaccine (1 - 2023-2 5 season) 2024 Depression Screening 05/07/2024 Influenza Vaccine (#1) 2025 DTaP,Tdap,and Td Vaccines (2 - Td or Tdap) 07/11/2026 07/11/2016 HIB Vaccines Aged Out No longer eligi [...] on patient's age to complete this topic Insurance [facility] [place] [address] Care Teams Loan Review Analyst Relationship Specialty Start Date End Date Tanvir Nguyen MD [address] [place] [address] [address] ROBERTO Campbell PCP - General Internal Medicine 05/07/12
--- OUTSIDE RECORDS SUMMARY | 2024-12-29 12:10 | XMS_ITS | Patient Health Record ---
Author Organization [facility] Address [address] [place] [address] Care Team Providers Care Computer Forensics Investigator Name Role Phone Cristi Mcknight Unavailable [phone] Reason For Referral No Information Plan Of Treatment No Information
[2024-12-29 12:19] LABS: Alanine Aminotransferase 46 U/L (0-31); Albumin Level 4.1 g/dL (3.5-5.0); Alkaline Phosphatase 118 U/L (39-117); Anion Gap 12 (12-20); Aspartate Amino Transferase 38 U/L (5-31); Blood Urea Nitrogen 15 mg/dL (9-16); Calcium 8.8 mg/dL (8.4-10.2); Carbon Dioxide 28 mmol/L (22-29); Chloride 106 mmol/L (96-108); Cholesterol 154 mg/dL (<200); Estimated Glomerular Filt Rate 52; HDL Cholesterol 63 mg/dL (>40); Potassium 3.8 mmol/L (3.3-5.1); Sodium 142 mmol/L (135-145); Total Protein 6.8 g/dL (6.5-8.0); Triglycerides 100 mg/dL (<150)
== END 2024-12-29 10:53 | disposition home or self-care (01) ==
LOC: HO.LAB 10:52
PROVIDERS: PCP Internal Medicine; Visit Provider Internal Medicine
DX: R30.0 Dysuria (principal); I50.9 Heart failure, unspecified; E78.00 Pure hypercholesterolemia, unspecified; E55.9 Vitamin D deficiency, unspecified; D64.9 Anemia, unspecified
CPT/HCPCS: 36415; 80053; 80061; 81003; 82306; 83880; 84443; 85025

== ENCOUNTER 2025-01-02 13:06 | Outpatient (AMB) | payer OTHER, SELFPAY ==
[2025-01-02 13:23] VITALS: BP 162/90; PULSE 70; BMI 29.4
--- NOTE | 2025-01-02 13:23 | MHC.OFFVIS ---
Vital Signs 01/02/25 13:23 Height 5 ft 1 in Weight 155 lb 10.342 oz BMI 29.4 BP 162/90 H Blood Pressure Location Lt brachial Position Sitting Pulse 70 Pulse Source Pulse Oximeter Intake Visit Reasons: 3-month f/u Debate Director Required: No Allergies No Known Allergies (No Known Allergies*) Allergy (Verified 01/02/25 13:27) Medication List - Last Reconciled 01/02/25 by Alana Uriostegui, FIRE PREVENTION RESEARCH ENGINEER-C albuterol sulfate 90 mcg/actuation (Ventolin HFA) inhalation amlodipine 2.5 mg PO DAILY aspirin 81 mg PO DAILY 90 days blood pressure monitor As directed - use to monitor BP daily as instructed cholecalciferol (vitamin D3) 50 mcg PO DAILY 90 days cyanocobalamin (vitamin B-12) 1,000 mcg PO DAILY 90 days [DEPENDS Adult Pull ups (MEDIUM) As directed] fluticasone furoate-vilanterol 100-25 mcg/dose (Breo Ellipta) 1 inh inhalation DAILY losartan 100 mg PO DAILY omeprazole 40 mg PO DAILY PRN 90 days HPI HPI 3-month f/u: Details: Kourtney is a 54-year-old female with past medical history of smoking, hypertension, cardiomyopathy, who presents for follow-up. Her last prior visit was 05/29/2024. She was due for follow-up 1 month later and did not attend. She now presents today. Today she reports she has not been taking all the medications she is supposed to. She does not like the way they make her feel. Carvedilol makes her feel lightheaded, isosorbide makes her feel unwell. She is taking the losartan and amlodipine. She says she never took Entresto and believes it may not have been approved by her insurance. Her home blood pressures typically run 150-160 systolic. She does not get readings below 140 systolic. She currently feels well with no concerning symptoms. She denies chest discomfort, shortness of breath, heart palpitations, edema. She says she is active through the day. Significant other is present. [facility] Medical History Hypertensive emergency Elevated troponin Vitamin D deficiency Essential hypertension Overweight (BMI 25.0-29.9) Smoker Anxiety Insomnia Lumbar spondylosis Allergic rhinitis Hemorrhagic gastritis Asthma Surgical History History of sleeve gastrectomy Family History Father No problems noted. Mother No problems noted. Social History Household Members: None Housing: Apartment Do you presently have visiting nurse or other home services: Yes Alcohol intake: current Alcohol intake frequency: a few times a week Patient Tobacco Use Status: Current someday Tobacco user Tobacco use type: Cigarette Cigarettes Per Day: 4 e-Cigarette/Vaping Use: Never Used Second Hand Smoke Exposure: Yes Substance Use Type: Crack/Cocaine service: No Current occupational status: disabled Cognitive needs: No Hearing needs: No Vision needs: No Review of Systems Const All systems reviewed & are unremarkable except as noted in HPI and below ENT Denies dizziness Card Denies chest pain, Denies chest pain at rest, Denies chest pain with activity, Denies rapid heart rate, Denies pedal edema, Denies edema, Denies leg edema, Denies lightheadedness, Denies palpitations, Denies dyspnea, Denies dyspnea on exertion and Denies orthopnea Resp Denies cough, Denies dyspnea and Denies dyspnea on exertion GI Denies hematochezia and Denies change in stool character Musc Denies abnormal gait, Denies limited range of motion, Denies muscle cramps, Denies muscle weakness, Denies numbness, Denies radiating pain into limb, Denies stiffness and Denies tingling Neuro Denies abnormal gait, Denies dizziness, Denies numbness and Denies tingling Endo Denies palpitations Physical Exam Vital Signs: Last Vital Signs Pulse 70 01/02/25 13:23 BP 162/90 H 01/02/25 13:23 BMI result Body Mass Index 29.4 Const General: cooperative, healthy appearing, comfortable and no acute distress Orientation/consciousness: patient oriented x3 Neck Neck: Yes normal visual inspection Resp Effort & Inspection: normal respiratory effort Auscultation: clear to auscultation bilaterally, no rales, no rhonchi and no wheezes Cardio Rate: regular rate Rhythm: regular rhythm Heart sounds: S1 normal heart sound present, S2 normal heart sound present, no gallops, no murmurs and no rubs Neuro General: patient oriented x3 Extrem General: Yes normal to inspection Psych Appearance: grossly normal Mental Status: mental status grossly normal Speech and movement: Normal speech and movement present Assessment & Plan Assessment & Plan (1) Cardiomyopathy: Code(s): I42.9 - Cardiomyopathy, unspecified Category: Medical Qualifiers: Cardiomyopathy type: unspecified Qualified Code(s): I42.9 - Cardiomyopathy, unspecified Plan: History of cardiomyopathy which was thought to be hypertension related. Prior echocardiogram 02/2022 showed EF 30-35%, basal inferior akinetic. She has had gaps in her follow-up since that time. Last echo was 10/02/2023 showing EF 36%, grade 1 diastolic dysfunction, global hypokinesis. A nuclear stress test was ordered for her on 03/2022 and 01/2024 and she has not completed it. Today she admits to noncompliance with isosorbide and carvedilol. Entresto was ordered last visit but it seems she did never received this medication and remains on losartan. Blood pressure today is elevated 162/90. Will increase amlodipine up to 5 mg daily. Will restart carvedilol at 3.125 mg b.i.d.. Continue losartan 100 mg daily. Will keep her off isosorbide. Encouraged to obtain nuclear stress test. Will update echo prior to next visit. Signs and symptoms of heart failure in the importance of good blood pressure control reviewed with her. Cardiology follow-up 2-3 months, sooner if needed. (2) Hypertension: Code(s): I10 - Essential (primary) hypertension Category: Medical Plan: Blood pressure goal less than 130/80. Elevated today. Med changes as above. (3) Chest pain: Code(s): R07.9 - Chest pain, unspecified Category: Medical Plan: Prior reports of chest discomfort. Nuclear stress test still pending. (4) Poorly-controlled hypertension: Code(s): I10 - Essential (primary) hypertension Category: Medical Plan: As above Plan I discussed with the patient the importance good Blood pressure control and that uncontrolled blood pressure has affected her heart function. We reviewed her medications and agreed on medication adjustments. I discussed the need to avoid salt intake. She has a stress test ordered and should obtain. A heart ultrasound will be conducted before the next visit to evaluate cardiac function. Orders: Orders CA echo transthoracic complete 10/14/25 I10 - Essential (primary) hypertension, I42.9 - Cardiomyopathy, unspecified Medications: New carvedilol must administer with a meal/food dose decreased 3.125 mg PO BID 60 tabs 5RF 30 days amlodipine dose increased 5 mg PO DAILY 90 tabs 1RF Discontinued amlodipine Discontinued Reason: Doctor's Order 2.5 mg PO DAILY 90 tabs 1RF Patient Instructions: - Monitor for leg swelling and shortness of breath. - Report any new symptoms immediately. - Avoid salt in your diet. - Follow up for an ultrasound and stress test before the next visit. Patient was informed and verbally consented to the use of an ambient scribe for clinic note documentation during this visit. Visit time spent on chart review, interview, assessment, orders, documentation. Coding Level of Care Code Est Pt Level 4 (75239) Complex EM visit Add On G2211 Diagnoses Cardiomyopathy, unspecified type I42.9 Cardiomyopathy type: unspecified Hypertension I10 Chest pain R07.9 Poorly-controlled hypertension I10 Time Spent (min) 28
--- OUTSIDE RECORDS SUMMARY | 2025-01-02 13:29 | XMS_ITS | Clinical Summary ---
Author Organization 175 [facility] Address [address] [place] [address] Phone Care Team Providers Care Furnace Brazer Name Role Phone Tanvir Nguyen MD Primary Care Provider [phone] Allergies No known active allergies Medications amLODIPine [...] PM EDT Office Visit Bariatric Surgery - [address] [place] [address] Jennifer Alva MD Overweight (Primary Dx); Severely overweight from Last 3 Months Surgical History Surgery Date Site/Laterality Comments OTHER SURGICAL HISTORY PROCEDURE: [place] LIG/TRNSXJ FLP TUBE ABDL/VAG APPR UNI/BI Medical [...] PM EST Office Visit Bariatric Surgery - [address] [place] [address] Jennifer Alva MD [address] [place] [address] Health Maintenance Due Date Last Done Comments [...] patient's age to complete this topic Insurance [facility] PL[facility] Care Teams Furnace Brazer Relationship Specialty Start Date End Date Tanvir Nguyen MD [address] [place] [address] [address] ROBERTO Campbell PCP - General Internal Medicine 05/07/12
--- OUTSIDE RECORDS SUMMARY | 2025-01-02 13:29 | XMS_ITS | Patient Health Record ---
Author Organization [facility] Address [address] [place] [address] Care Team Providers Care Remelt Operator Name Role Phone Cristi Mcknight Unavailable [phone] Reason For Referral No Information Plan Of Treatment No Information
== END 2025-01-02 14:12 | disposition home or self-care (01) ==
LOC: HO.HCS 13:07
PROVIDERS: PCP Internal Medicine; Visit Provider Nurse Practitioner Family
DX: I42.9 Cardiomyopathy, unspecified (principal); I10 Essential (primary) hypertension; R07.9 Chest pain, unspecified
CPT/HCPCS: 99214

== ENCOUNTER → 2025-01-02 13:06 | Outpatient (BNVA) | payer OTHER, SELFPAY | PROVIDERS: PCP Internal Medicine; Visit Provider Nurse Practitioner Family | DX: I42.9 Cardiomyopathy, unspecified (principal); I10 Essential (primary) hypertension; R07.9 Chest pain, unspecified | CPT/HCPCS: 99212 ==

== ENCOUNTER 2025-02-25 11:01 | Outpatient (AMB) | payer OTHER, SELFPAY ==
--- NOTE | 2025-02-25 11:07 | A.OFFPC_ITS ---
Vital Signs 02/25/25 11:08 Height 5 ft 1 in Weight 156 lb 2 oz BMI 29.5 BP 160/90 H Blood Pressure Location Lt brachial Position Sitting Pulse 86 Pulse Source Pulse Oximeter Temp 96.9 F Temp Source Temporal Artery Scan Pulse Oximetry (%) 98 Oxygen Delivery Method Room Air Intake Visit Reasons: pain left side where the lungs are Intake Note: Patient is here to follow up on pain right side upper back to the rib area, with difficulty breathing. Ongoing for two week, used Tylenol with no effective relief Doubling Machine Operator Required: No Sheet Pile Hammer Operator: Not Required per policy Accompanied by: Self / Same As Patient Allergies No Known Allergies (No Known Allergies*) Allergy (Verified 02/25/25 11:37) Medication List - Last Reconciled 02/25/25 by Raulito Verma MD albuterol sulfate 90 mcg/actuation (Ventolin HFA) inhalation amlodipine 5 mg PO DAILY aspirin 81 mg PO DAILY 90 days blood pressure monitor As directed - use to monitor BP daily as instructed carvedilol 3.125 mg PO BID 30 days cholecalciferol (vitamin D3) 50 mcg PO DAILY 90 days cyanocobalamin (vitamin B-12) 1,000 mcg PO DAILY 90 days [DEPENDS Adult Pull ups (MEDIUM) As directed] fluticasone furoate-vilanterol 100-25 mcg/dose (Breo Ellipta) 1 inh inhalation DAILY losartan 100 mg PO DAILY omeprazole 40 mg PO DAILY PRN 90 days Tobacco use date assessed: 02/25/25 Dental Screening Dental Screen Date: 11/21/24 HPI pain left side where the lungs are HPI Details 54-[facility]. For the past 3 weeks, patient is complaining of pain in the right side of the chest. Pain is worse on inspiration. No associated cough or shortness of breath. No nausea or vomiting. Patient does not recall any injury or fall. [facility] Medical History Hypertensive emergency Elevated troponin Vitamin D deficiency Essential hypertension Overweight (BMI 25.0-29.9) Smoker Anxiety Insomnia Lumbar spondylosis Allergic rhinitis Hemorrhagic gastritis Asthma Surgical History History of sleeve gastrectomy Family History Father No problems noted. Mother No problems noted. Social History Household Members: None Housing: Apartment Do you presently have visiting nurse or other home services: Yes Alcohol intake: current Alcohol intake frequency: a few times a week Patient Tobacco Use Status: Current someday Tobacco user Tobacco use type: Cigarette Cigarette Packs Per Day: 0.5 Cigarettes Per Day: 3 e-Cigarette/Vaping Use: Never Used Second Hand Smoke Exposure: Yes Substance Use Type: Crack/Cocaine service: No Current occupational status: disabled Cognitive needs: No Hearing needs: No Vision needs: No Questionnaire Thrive Questionnaire Date Thrive assessed: 11/21/24 I am a: Patient What is your living situation today?: I choose not to answer this question Within the past 12 months, did the food you bought not last and you didn't have the money to get more?: I choose not to answer this question Within the past 12 months, did you worry whether your food would run out before you got money to buy more?: I choose not to answer this question Do you have trouble paying for medicines?: I choose not to answer this question Do you have trouble getting transportation to medical appointments?: No Do you have trouble paying your heating and electricity bill?: Yes Do you have trouble taking care of your child, family member or friend?: No Do you have trouble with day-to-day activities such as bathing, preparing meals, shopping, managing finances, etc.?: No Are you currently unemployed and looking for a job?: No Are you interested in more education?: No THRIVE Score: 1 PORFIRIO-7 AMB Questionnaire PORFIRIO-7 Date PORFIRIO - 7 assessed: 11/21/24 Source: Developed by Drs. Cristi Arceo, Radha Egan, Jewel Nash and colleagues, with an educational jose from [employer]. Physical exam (Primary Care) Vital Signs: Last Vital Signs Temp 96.9 F 02/25/25 11:08 Pulse 86 02/25/25 11:08 BP 160/90 H 02/25/25 11:08 Pulse Ox 98 02/25/25 11:08 Oxygen Delivery Method Room Air 02/25/25 11:08 BMI result Body Mass Index 29.5 Tobacco/Smoking Status: Tobacco use Status Tobacco use date assessed 02/25/25 02/25/25 11:15 Patient Tobacco Use Status Current someday Tobacco 02/25/25 11:15 Tobacco use type Cigarette 02/25/25 11:15 e-Cigarette/Vaping Use Never Used 02/25/25 11:15 Thrive Assessment: Date of Thrive Assessment Date Thrive assessed 11/21/24 02/25/25 11:15 Const Other: Chest: No visible bruising. No rashes. No costal tenderness. General: cooperative and healthy appearing Nutritional Appearance: well nourished Orientation/consciousness: patient oriented x3 Limitations: no limitations HENMT Head: Yes normal to inspection Eyes General: appearance normal, both eyes and all related structures Neck Neck: Yes normal visual inspection Chest Chest palpation & inspection: normal palpation of entire chest wall Resp Effort & Inspection: normal respiratory effort Neuro General: patient oriented x3 Coding Level of Care Code Est Pt Level 4 (69787) Complex EM visit Add On G2211 Diagnoses Chest pain R07.9 Assessment & Plan Assessment & Plan (1) Chest pain: Code(s): R07.9 - Chest pain, unspecified Plan: Pleuritic in nature. Chest x-ray ordered. Meloxicam and Zithromax called in. If symptoms do not improve to follow-up here. Orders: Orders XR chest 2V Today R05.9 - Cough, unspecified
[2025-02-25 11:08] VITALS: BP 160/90; PULSE 86; TEMP 36.1; O2SAT 98; BMI 29.5
--- OUTSIDE RECORDS SUMMARY | 2025-02-25 14:43 | XMS_ITS | Patient Health Record ---
Author Organization [facility] Address [address] [place] [address] Care Team Providers Care Binder Cutter Name Role Phone Cristi Mcknight Unavailable [phone] Reason For Referral No Information Plan Of Treatment No Information
--- OUTSIDE RECORDS SUMMARY | 2025-02-25 14:43 | XMS_ITS | Clinical Summary ---
Author Organization 175 [facility] Address [address] [place] [address] Phone Care Team Providers Care Felt Hat Flanging Operator Name Role Phone Tanvir Nguyen MD Primary Care Provider [phone] Allergies No known active allergies Medications amLODIPine [...] Active naltrexone (DEPADE) 50 mg tabletIndicatio ns:Overweight TAKE 1/2 TABLET (25 MG TOTAL) BY MOUTH DAILY 15 tablet 1 01/14/2025 02/14/20 25 Active Problems Problem Noted Date Diagnosed Date Hypertension 12/27/2022 Encounters Date Type Department Care Team Description 12/11/2024 1:45 PM EDT Office Visit Bariatric Surgery - [address] [place] [address] Jennifer Alva MD Overweight (Primary Dx); Severely overweight from Last 3 Months Surgical History Surgery Date Site/Laterality Comments OTHER SURGICAL HISTORY PROCEDURE: [place] LIG/TRNSXJ FLP TUBE ABDL/VAG APPR UNI/BI Medical [...] PM EST Office Visit Bariatric Surgery - [address] [place] [address] Jennifer Alva MD [address] [place] [address] Health Maintenance Due Date Last Done Comments Breast Cancer Screening 1970 Colorectal Cancer Screening: Colonoscopy 1970 Hepatitis B Vaccines (1 of 3 - 19+ 3-dose series) 1989 Pneumococcal Vaccine: 50+ Ye ars (1 of 2 - PCV) 1989 Cervical Cancer Screening: P ap Smear 07/18/1991 Zoster Vaccines (1 of 2) 2020 Cholesterol Screening (Lipid Panel) 06/06/2023 HIV Screening 06/06/2023 Hepatitis C Screening 06/06/2023 Hypertension/CHF/CAD Annual BMP Blood Test 06/06/2023 Social Influencers of Health Screening 06/06/2023 Depression Screening 05/07/2024 COVID-19 Vaccine (1 - 2023-2 5 season) 2025 Influenza Vaccine (#1) 2025 DTaP,Tdap,and Td Vaccines (2 - Td or Tdap) 07/11/2026 07/11/2016 RSV Immunization Adult Patie nts (1 - 1-dose 75+ series) 2045 HIB Vaccines Aged Out No longer eligi [...] patient's age to complete this topic Insurance [facility] Care Teams Felt Hat Flanging Operator Relationship Specialty Start Date End Date Tanvir Nguyen MD [address] [place] [address] [address] [place] PCP - General Internal Medicine 05/07/12
== END 2025-02-25 11:33 | disposition home or self-care (01) ==
LOC: HO.HMCH 11:01
PROVIDERS: PCP Internal Medicine; Visit Provider Internal Medicine
DX: R07.9 Chest pain, unspecified (principal)

== ENCOUNTER 2025-02-25 11:01 | Outpatient (REF) | payer OTHER, SELFPAY ==
--- NOTE | ~2025-02-25 | XR_ITS ---
EXAMINATION: XR CHEST CLINICAL INFORMATION: R05.9 - Cough, unspecified COMPARISON: March 20 2024 TECHNIQUE: 2 views of the chest were obtained. FINDINGS: Cardiac silhouette appears enlarged. The lungs are clear. Pulmonary vessels are distinct. There is no pleural effusion. Anterior endplate osteophyte are present in the mid to lower thoracic spine. Surgical clips are present in the upper abdomen, both on the left and the right. XR/XR chest 2V IMPRESSION: Cardiomegaly. Electronically signed by: Bienvenido Vaz MD 02/25/2025 12:00 PM EDT
== END 2025-02-25 11:02 | disposition home or self-care (01) ==
LOC: HO.XRAY 11:01
PROVIDERS: PCP Internal Medicine; Visit Provider Internal Medicine
DX: R07.89 Other chest pain (principal); R05.9 Cough, unspecified; Z79.82 Long term (current) use of aspirin; Z79.899 Other long term (current) drug therapy
CPT/HCPCS: 71046; 99212

== ENCOUNTER → 2025-02-25 11:45 | Outpatient (BNV) | payer OTHER, SELFPAY | PROVIDERS: PCP Internal Medicine; Visit Provider Radiology Diagnostic Radiology | DX: I51.7 Cardiomegaly (principal) | CPT/HCPCS: 71046 ==

== ENCOUNTER → 2025-03-10 07:40 | Outpatient (REF) | payer OTHER, SELFPAY ==
--- NOTE | ~2025-03-10 | NM_ITS ---
EXERCISE MYOCARDIAL PERFUSION STUDY INDICATION: Cardiomyopathy TECHNIQUE: The patient was brought in for an exercise perfusion study on 03/10/2025. Patient performed exercise as per Cristopher protocol and was injected 25 mCi of sestamibi once target heart rate was achieved. Images were obtained using the SPECT gamma camera interlaced with the gating device. Images were obtained in supine position. Resting perfusion study was performed on 03/11/2025. Patient was administered 25 mCi of sestamibi intravenously at rest. Images were then obtained in supine position. Total DLP 100 mGy-cm. Images were processed with the software and compared side to side in short axis, horizontal long axis and vertical long axis views. FINDINGS: Raw aquisition reviewed. The stress perfusion study showed no significant perfusion abnormality. Both uncorrected as well as CT attenuation corrected images were reviewed. The gated study shows diminished LV systolic function with calculated LVEF of 33%. LV cavity is normal in size. The gated study shows globally reduced wall thickening and contraction of segments. Resting study shows no significant perfusion abnormality. Gating at rest reveals globally reduced wall thickening with ejection fraction at 50%. The findings are consistent with no clear reversible or fixed perfusion abnormality. NM/NM cardiolite stress test IMPRESSION: 1. Myocardial perfusion imaging study shows normal myocardial perfusion. 2. Gated LVEF is 33% during stress and 50% during rest. Correlate with echocardiogram. 3. Transient ischemic dilatation not present. EKG component of the test reported separately. Electronically signed by: Malcolm Schultz MD 03/12/2025 12:19 PM [facility]
--- NOTE | 2025-03-10 07:42 | CA_ITS ---
Acquisition Time: 2025-03-10 09:37:52 Total Exercise Time: 00:05:16 Test Indications: Medications: Protocol: CANDE Max HR: 137 BPM 82% of Pred: 166 BPM Max BP: 188/96 mmHG Max Work Load: 7.0 METS Exercise stress test with exercise 5 mins 16 secs of Cande Protocol, achieving 83% MPHR, with reports of feeling tired, no chets pain, with isolated PACs, with normotensive response to exercise. Without any EKG changes meeting criteria for ischemia. In recovery, pt feeling back to baseline. Nuclear images pending. Test reviewed with Dr. Artis. Referred By: Alana Uriostegui Electronically Signed By: Todd Campos
--- NOTE | 2025-03-10 07:42 | CA_ITS ---
Transthoracic Echocardiogram Patient (Last, First, Middle): Kourtney Hubbard I Gender: Female Date of : 1970 Age: 54 Procedure Date: 03/10/2025 Procedure Type: Transthoracic Echocardiogram Location: OP Height: 154.94 cm Weight: 70.76 kg BSA: 1.70 m2 Heart Rate: 86 bpm BP: 148 / 86 mmHg Oracle Erp Developer: SB Referring MD: Alana Uriostegui [employer]SEM[employer]ER [employer] Symptoms: I42.9 - Cardiomyopathy, unspecified Study Quality: Adequate ECG Rhythm: Sinus with PACs Conclusions: - The left ventricular systolic function is mildly decreased. The calculated ejection fraction is 50% by biplane method. - No obvious valvular pathology seen on this study. Findings Procedure Information Contrast agent, definity, is being given per protocol without apparent complications. The quality of the study was technically difficult. The study quality is limited by lung artifact. Left Ventricle Normal left ventricular cavity size. There is moderately increased left ventricular wall thickness. The left ventricular systolic function is mildly decreased. The calculated ejection fraction is 50% by biplane method. There is mild global hypokinesis. Evidence suggests grade I (mild) diastolic dysfunction. Right Ventricle The right ventricle was not well visualized. Atria Both atria are normal in size. Aortic Valve The aortic valve was not well visualized. There is no aortic valve stenosis. There is no aortic valve regurgitation. Mitral Valve The mitral valve appears normal. There is no mitral valve regurgitation. There is no mitral valve stenosis. Pulmonic Valve The pulmonic valve is likely normal. Tricuspid Valve There is trace tricuspid valve regurgitation. Tricuspid regurgitation envelope is inadequate for calculation of right ventricular systolic pressure. Great Vessels The asc aorta is normal in size. Venous The inferior vena cava is normal in size and collapses greater than 50% with inspiration. Pericardium/Pleural There is a trivial pericardial effusion. Prior Study Comparison Changes noted compared to prior study dated: 10/03/2023. Improvement in LVEF. Recommendations, Care & Conclusions No obvious valvular pathology seen on this study. Measurements 2D Linear Measurements IVSd: 1.24 0.6-0.9/0.6-1.0 cm LVIDd: 4.29 3.9-5.3/4.2-5.9 cm LVIDd Index: 2.52 2.4-3.2/2.2-3.1 cm/m2 LVIDs: 3.83 2.0-3.6 cm LVPWd: 1.35 0.7-1.1 cm LA Diam: 3.80 2.7-3.8/3.0-4.0 cm LAIDs Index: 2.24 1.5-2.3 cm/m2 LV Mass: 256.58 67-162/88-224 g LV Mass Index: 150.93 43-95/49-115 g/m2 LVOT Diam: 2.00 3.0+(-)1.3 cm 2D Systolic Function EF 4C: 47.10 >55% EF 2C: 50.30 >55% EF BiP: 49.50 >55% Mitral Valve MV Pk E: 0.64 MV PK A: 0.94 MV Decel Time: 278.00 E/A: 0.70 E'Lateral: 2.83 E'Medial: 3.92 E/E' Med: 16.40 E/E' Lat: 22.70 PHT: 82.00 MVA PHT: 2.68 Decel Hardy: 2.31 Aortic Valve AoV Pk Shawn: 1.38 AoV Mn Shawn: 0.99 AoV VTI: 0.22 AoV Pk Grad: 8.00 Aov Mn Grad: 5.00 WESLY Cont.VTI: 1.89 LVOT LVOT Pk Shawn: 0.76 LVOT Mn Shawn: 0.52 LVOT VTI: 0.14 LVOT Pk Grad: 2.00 LVOT Mn Grad: 1.00 LVOT Diam: 2.00 LVOT Area: 3.14 Diastolic Function MV Pk E: 0.64 MV Pk A: 0.94 E/A: 0.70 E'Medial: 3.92 E/E' Med: 16.40 E' Laterial: 2.83 E/E' Lat: 22.70 Right Ventricle TVS' Shawn: 11.50 Tricuspid Valve RA Press: 3.00 Great Vessels Aorta Sinus of Valsalva: 2.60 2.0-3.5 cm Ao Asc: 3.00 2.1-3.4 cm Ao Arch: 2.30 Pulmonary Valve PV Pk Shawn: 0.83 Peak PV Grad: 3.00 Updated in Other Vendor System with Status of Final Malcolm Schultz MD electronically signed on 03/10/2025 3:10:15 PM with status of Final
--- OUTSIDE RECORDS SUMMARY | 2025-03-10 07:42 | XMS_ITS | Patient Health Record ---
Author Organization [facility] Address [address] [place] [address] Care Team Providers Care Manager Nuclear Name Role Phone Cristi Mcknight Unavailable [phone] Reason For Referral No Information Plan Of Treatment No Information
--- OUTSIDE RECORDS SUMMARY | 2025-03-10 07:42 | XMS_ITS | Clinical Summary ---
Author Organization [address] [facility] Address [address] [place] [address] Phone Care Team Providers Care Occupancy Specialist Name Role Phone Tanvir Nguyen MD Primary Care Provider [phone] Allergies No known active allergies Medications amLODIPine [...] PM EDT Office Visit Bariatric Surgery - [address] [place] [phone] Jennifer Alva MD Overweight (Primary Dx); Severely overweight from Last 3 Months Surgical History Surgery Date Site/Laterality Comments OTHER SURGICAL HISTORY PROCEDURE: [place] LIG/TRNSXJ FLP TUBE ABDL/VAG APPR UNI/BI Medical [...] PM EST Office Visit Bariatric Surgery - [address] [place] [address] Jennifer Alva MD [address] [place] [phone] Health Maintenance Due Date Last Done [...] patient's age to complete this topic Insurance [facility] Care Teams Occupancy Specialist Relationship Specialty Start Date End Date Tanvir Nguyen MD [address] [place] [address] Dr [address] [place] PCP - General Internal Medicine 05/07/12
== END ==
LOC: HO.CARD 07:40
PROVIDERS: PCP Internal Medicine; Visit Provider Nurse Practitioner Family
DX: I42.9 Cardiomyopathy, unspecified (principal); I10 Essential (primary) hypertension
CPT/HCPCS: 78452; 93017; 93306; A9500; J0280; J2785; Q9957

== ENCOUNTER → 2025-03-10 07:42 | Outpatient (BNV) | payer OTHER, SELFPAY | PROVIDERS: PCP Internal Medicine | DX: I42.8 Other cardiomyopathies (principal); I49.1 Atrial premature depolarization | CPT/HCPCS: 78452; 93016; 93018; 93350; 93352 ==

== ENCOUNTER 2025-03-19 09:09 | Outpatient (REF) | payer OTHER, SELFPAY ==
--- OUTSIDE RECORDS SUMMARY | 2025-03-19 10:08 | XMS_ITS | Patient Health Record ---
Author Organization [facility] Address [address] [place] [address] Care Team Providers Care Indian Trader Name Role Phone Cristi Mcknight Unavailable [phone] Reason For Referral No Information Plan Of Treatment No Information
--- OUTSIDE RECORDS SUMMARY | 2025-03-19 10:08 | XMS_ITS | Clinical Summary ---
Author Organization [facility] Address [address] [place] [address] Phone Care Team Providers Care Header Operator Name Role Phone Tanvir Nguyen MD [...] chew, or split. 30 each 12/11/2024 Active Active Problems Problem Noted Date Diagnosed Date Hypertension 12/27/2022 Surgical History Surgery Date Site/Laterality Comments OTHER SURGICAL HISTORY PROCEDURE: [place] LIG/TRNSXJ FLP TUBE ABDL/VAG APPR UNI/BI Medical [...] PM EST Office Visit Bariatric Surgery - [place] [address] [facility] [address] [place] [address] Jennifer Alva MD [facility] [place] [address] Health Maintenance Due Date Last Done [...] Depression Screening 05/07/2024 COVID-19 Vaccine (1 - 2024-2 6 season) 2025 Influenza Vaccine (#1) 2025 DTaP,Tdap,and [...] patient's age to complete this topic Insurance [facility] Care Teams Header Operator Relationship Specialty Start Date End Date Tanvir Nguyen MD [address] [place] [address] [address] ROBERTO Campbell PCP - General Internal Medicine 05/07/12
[2025-03-19 10:42] LABS: Anion Gap 12 (12-20); Blood Urea Nitrogen 13 mg/dL (9-16); Calcium 8.6 mg/dL (8.4-10.2); Carbon Dioxide 27 mmol/L (22-29); Chloride 109 mmol/L (96-108); Estimated Glomerular Filt Rate 56; Potassium 3.3 mmol/L (3.3-5.1); Sodium 145 mmol/L (135-145)
== END 2025-03-19 09:10 | disposition home or self-care (01) ==
LOC: HO.LAB 09:09
PROVIDERS: Nurse Practitioner Family; PCP Internal Medicine; Visit Provider Internal Medicine
DX: I10 Essential (primary) hypertension (principal); I42.9 Cardiomyopathy, unspecified; F17.210 Nicotine dependence, cigarettes, uncomplicated; Z79.899 Other long term (current) drug therapy
CPT/HCPCS: 36415; 80048; 99212

== ENCOUNTER 2025-03-19 09:55 | Outpatient (AMB) | payer OTHER, SELFPAY ==
[2025-03-19 10:07] VITALS: BP 140/100; PULSE 89; BMI 30.2
--- NOTE | 2025-03-19 10:07 | A.OFFVIS_ITS ---
Vital Signs 03/19/25 10:07 Height 5 ft 1 in Weight 159 lb 9.835 oz BMI 30.2 BP 140/100 H Blood Pressure Location Lt brachial Position Sitting Pulse 89 Pulse Source Pulse Oximeter Intake Visit Reasons: f/u after testing Twist Tester Required: No Twist Tester Services: Twist Tester Offered & Declined Waste Water Worker: Waste Water Worker Present Allergies No Known Allergies (No Known Allergies*) Allergy (Verified 03/19/25 10:09) Medication List - Last Reconciled 03/19/25 by Alana Uriostegui [employer]LECTRIC MOTOR ASSEMBLER AND TESTER-[employer] albuterol sulfate 90 mcg/actuation (Ventolin HFA) inhalation amlodipine 5 mg PO DAILY aspirin 81 mg PO DAILY 90 days azithromycin take 500 mg today (day 1), then 250 mg for 4 days (days 2-5) PO blood pressure monitor As directed - use to monitor BP daily as instructed carvedilol 3.125 mg PO BID 30 days cholecalciferol (vitamin D3) 50 mcg PO DAILY 90 days cyanocobalamin (vitamin B-12) 1,000 mcg PO DAILY 90 days [DEPENDS Adult Pull ups (MEDIUM) As directed] fluticasone furoate-vilanterol 100-25 mcg/dose (Breo Ellipta) 1 inh inhalation DAILY losartan 100 mg PO DAILY meloxicam 15 mg PO DAILY omeprazole 40 mg PO DAILY PRN 90 days HPI HPI f/u after testing: Details: Kourtney is a 54-year-old female with past medical history of smoking, hypertension, cardiomyopathy, med noncompliance who presents for follow-up after recent echocardiogram and nuclear stress test. Today she reports she has not been doing well since last visit in December. She believes she is now taking the medications she is supposed to. She has Entresto on hand but has not started it yet. She currently feels well with no concerning symptoms. She denies chest discomfort, shortness of breath, heart palpitations, edema. She says she is active through the day. Significant other is present. [facility] Medical History Hypertensive emergency Elevated troponin Vitamin D deficiency Essential hypertension Overweight (BMI 25.0-29.9) Smoker Anxiety Insomnia Lumbar spondylosis Allergic rhinitis Hemorrhagic gastritis Asthma Surgical History History of sleeve gastrectomy Family History Father No problems noted. Mother No problems noted. Social History Household Members: None Housing: Apartment Do you presently have visiting nurse or other home services: Yes Alcohol intake: current Alcohol intake frequency: a few times a week Patient Tobacco Use Status: Current someday Tobacco user Tobacco use type: Cigarette Cigarette Packs Per Day: 0.5 Cigarettes Per Day: 3 e-Cigarette/Vaping Use: Never Used Second Hand Smoke Exposure: Yes Substance Use Type: Crack/Cocaine service: No Current occupational status: disabled Cognitive needs: No Hearing needs: No Vision needs: No Review of Systems Const All systems reviewed & are unremarkable except as noted in HPI and below ENT Denies dizziness Card Denies chest pain, Denies chest pain at rest, Denies chest pain with activity, Denies rapid heart rate, Denies pedal edema, Denies edema, Denies leg edema, Denies lightheadedness, Denies palpitations, Denies dyspnea, Denies dyspnea on exertion and Denies orthopnea Resp Denies cough, Denies dyspnea and Denies dyspnea on exertion GI Denies hematochezia and Denies change in stool character Musc Denies abnormal gait, Denies limited range of motion, Denies muscle cramps, Denies muscle weakness, Denies numbness, Denies radiating pain into limb, Denies stiffness and Denies tingling Neuro Denies abnormal gait, Denies dizziness, Denies numbness and Denies tingling Endo Denies palpitations Physical Exam Vital Signs: Last Vital Signs Pulse 89 03/19/25 10:07 BP 140/100 H 03/19/25 10:07 BMI result Body Mass Index 30.2 Const General: cooperative, healthy appearing, comfortable and no acute distress Orientation/consciousness: patient oriented x3 Resp Effort & Inspection: normal respiratory effort Auscultation: clear to auscultation bilaterally, no rales, no rhonchi and no wheezes Cardio Rate: regular rate Rhythm: regular rhythm Heart sounds: S1 normal heart sound present, S2 normal heart sound present, no gallops, no murmurs and no rubs Neuro General: patient oriented x3 Extrem General: Yes normal to inspection Psych Appearance: grossly normal Mental Status: mental status grossly normal Speech and movement: Normal speech and movement present Assessment & Plan Assessment & Plan (1) Cardiomyopathy: Code(s): I42.9 - Cardiomyopathy, unspecified Category: Medical Qualifiers: Cardiomyopathy type: unspecified Qualified Code(s): I42.9 - Cardiomyopathy, unspecified Plan: History of cardiomyopathy which was thought to be hypertension related. Prior echocardiogram 02/2022 showed EF 30-35%, basal inferior akinetic. She has had gaps in her follow-up since that time. Echo was 10/02/2023 showing EF 36%. Last echo 03/10/2025 shows EF 50%, no valve abnormalities. Nuclear stress test 03/10/2025 with exercise 5 minutes 16 seconds, no EKG changes and normal myocardial perfusion imaging. She is not fluid overloaded on exam. NYHA class 1. Will have her stop losartan and start on Entresto. Continue carvedilol. She is not requiring diuretics. Signs and symptoms of heart failure in the importance of good blood pressure control reviewed with her. Cardiology follow- up 6 months, sooner if needed. (2) Hypertension: Code(s): I10 - Essential (primary) hypertension Category: Medical Plan: Blood pressure goal less than 130/80. Elevated today. Will have her stop losartan and start on Entresto. BMP in 1-2 weeks. Continue carvedilol. She is PCP visit next week. If blood pressure remains elevated with systolic greater than 140 recommend increase in carvedilol to 6.25 mg b.i.d.. Will forward this to her PCP. (3) Poorly-controlled hypertension: Code(s): I10 - Essential (primary) hypertension Category: Medical Plan: As above Plan I discussed with the patient the importance of transitioning to Entresto from losartan to improve heart function and manage hypertension. We reviewed the normal results of the recent echocardiogram and stress test, emphasizing the need for medication adherence. I advised follow-up with Dr. Nguyen for blood p ressure monitoring and scheduled blood work to assess kidney function with Entresto. Orders: Orders Basic Metabolic Panel 1 Week I10 - Essential (primary) hypertension Medications: Refilled sacubitril-valsartan 49-51 mg (Entresto) Stop Losartan Start Entresto - 1 tab twice daily 1 tab PO BID 60 tabs 5RF Discontinued losartan Discontinued Reason: Doctor's Order 100 mg PO DAILY 90 tabs 1RF Patient Instructions: - Start taking Entresto as prescribed to replace losartan. - Monitor blood pressure regularly and report any significant changes. - Attend follow-up appointment with Dr. Nguyen for blood pressure check. - Complete blood work in two weeks to check kidney function. Patient was informed and verbally consented to the use of an ambient scribe for clinic note documentation during this visit. Visit time spent on chart review, interview, assessment, orders, documentation. Coding Level of Care Code Est Pt Level 4 (13999) Complex EM visit Add On G2211 Diagnoses Cardiomyopathy, unspecified type I42.9 Cardiomyopathy type: unspecified Hypertension I10 Poorly-controlled hypertension I10 Time Spent (min) 28
== END 2025-03-19 10:39 | disposition home or self-care (01) ==
LOC: HO.HCS 09:55
PROVIDERS: PCP Internal Medicine; Visit Provider Nurse Practitioner Family
DX: I42.9 Cardiomyopathy, unspecified (principal); I10 Essential (primary) hypertension
CPT/HCPCS: 99214

== ENCOUNTER 2025-03-24 15:04 | Outpatient (AMB) | payer OTHER, SELFPAY ==
--- NOTE | 2025-03-24 15:15 | A.OFFPC_ITS ---
Vital Signs 03/24/25 15:21 Height 5 ft 1 in Weight 158 lb 8 oz BMI 29.9 BP 162/98 H Blood Pressure Location Lt brachial Position Sitting Pulse 81 Pulse Source Pulse Oximeter Pulse Oximetry (%) 96 Oxygen Delivery Method Room Air Intake Visit Reasons: 3mth f/u Manager Fiber Required: No Accompanied by: Self / Same As Patient Allergies No Known Allergies (No Known Allergies*) Allergy (Verified 03/24/25 16:07) Medication List - Last Reconciled 03/24/25 by Tanvir Nguyen MD albuterol sulfate 90 mcg/actuation (Ventolin HFA) inhalation amlodipine 5 mg PO DAILY aspirin 81 mg PO DAILY 90 days atorvastatin (Lipitor) 40 mg PO BEDTIME blood pressure monitor As directed - use to monitor BP daily as instructed carvedilol 3.125 mg PO BID 30 days cholecalciferol (vitamin D3) 50 mcg PO DAILY 90 days cyanocobalamin (vitamin B-12) 1,000 mcg PO DAILY 90 days [DEPENDS Adult Pull ups (MEDIUM) As directed] fluticasone furoate-vilanterol 100-25 mcg/dose (Breo Ellipta) 1 inh inhalation DAILY meloxicam 15 mg PO DAILY omeprazole 40 mg PO DAILY PRN 90 days sacubitril-valsartan 49-51 mg (Entresto) 1 tab PO BID Tobacco use date assessed: 03/24/25 Dental Screening Dental Screen Date: 03/24/25 Did you have a dental visit in the last 12 months?: No Did you have a dental problem in the last 6 months where you did not have access to dental care?: No Was dental information given to patient?: No HPI 3mth f/u HPI Details - The patient is a 54-year-old female pr esenting for management of chronic conditions. - The patient has a history of cardiomyo beryl with decreased left ventricular ejection fraction, primarily due to long-standing hypertension. - A previous ultrasound showed some carissa very in heart function, and she is taking Entresto, which is noted to be helping. - A stress test did not show any blockag es. - Her blood pressure remains elevated, t jocelyne she monitors it at home. She denies any headaches or dizziness Denies any chest pains, still has frequent BLUNT states that this has not gotten any worse No nausea/vomiting, no abdominal pain No change in bowel habits noted - Recent lab work revealed good electrol yte levels and improved kidney function compared to August. - Her cholesterol is well-controlled wit h medication, with recent numbers described as excellent. - However, her liver enzymes are slightl y elevated, which is attributed to recent weight gain. - Her blood count in December was normal, and recent thyroid and vitamin D levels are good. [facility] Medical History Hypertensive emergency Elevated troponin Vitamin D deficiency Essential hypertension Overweight (BMI 25.0-29.9) Smoker Anxiety Insomnia Lumbar spondylosis Allergic rhinitis Hemorrhagic gastritis Asthma Surgical History History of sleeve gastrectomy Family History Father No problems noted. Mother No problems noted. Social History Household Members: None Housing: Apartment Do you presently have visiting nurse or other home services: Yes Alcohol intake: current Alcohol intake frequency: a few times a week Patient Tobacco Use Status: Current someday Tobacco user Tobacco use type: Cigarette Cigarette Packs Per Day: 0.5 Cigarettes Per Day: 3 e-Cigarette/Vaping Use: Never Used Second Hand Smoke Exposure: Yes Substance Use Type: Crack/Cocaine service: No Current occupational status: disabled Cognitive needs: No Hearing needs: No Vision needs: No Questionnaire PHQ-9 Over the last 2 weeks, how often have you been bothered by any of the following problems? 1. Little interest or pleasure in doing things: not at all 2. Feeling down, depressed, or hopeless: not at all 3. Trouble falling or staying asleep, or sleeping too much: not at all 4. Feeling tired or having little energy: not at all 5. Poor appetite or overeating: not at all 6. Feeling bad about yourself - or that you are a failure or have let yourself or your family down: not at all 7. Trouble concentrating on things, such as reading the newspaper or watching t elevision: not at all 8. Moving or speaking so slowly that other people could have noticed. Or the opposite - being so fidgety or restless that you have been moving around a lot more than usual: not at all 9. Thoughts that you would be better off or of hurting yourself in some way: not at all Total score: 0 Depression Screening Interpretation: Negative Depression Screening Done: Yes 35258 - PHQ-9 Billing: Yes Source: Developed by Drs. Cristi Arceo, Radha Egan, Jewel Nash and colleagues, with an educational jose from [employer] Thrive Questionnaire Date Thrive assessed: 03/24/25 I am a: Patient What is your living situation today?: I choose not to answer this question Within the past 12 months, did the food you bought not last and you didn't have the money to get more?: I choose not to answer this question Within the past 12 months, did you worry whether your food would run out before you got money to buy more?: I choose not to answer this question Do you have trouble paying for medicines?: I choose not to answer this question Do you have trouble getting transportation to medical appointments?: No Do you have trouble paying your heating and electricity bill?: Yes Do you have trouble taking care of your child, family member or friend?: No Do you have trouble with day-to-day activities such as bathing, preparing meals, shopping, managing finances, etc.?: No Are you currently unemployed and looking for a job?: No Are you interested in more education?: No Please select the resources that you would like help with: None Currently or been in a relationship where the following occur: I choose not to answer THRIVE Score: 1 AUDIT C Alcohol Use Questionnaire (AUDIT-C) 1. How often do you have a drink containing alcohol?: Never 3. How often do you have six or more drinks on one occasion?: Never Total Score: 0 Score Reviewed/Action Taken: Yes PORFIRIO-7 AMB Questionnaire PORFIRIO-7 Date PORFIRIO - 7 assessed: 03/24/25 Feeling nervous, anxious, or on edge: 0 = Not at all Not being able to stop or control worryin = Not at all Worrying too much about different things: 0 = Not at all Trouble relaxin = Not at all Being so restless that it is hard to sit still: 0 = Not at all Becoming easily annoyed or irritable: 0 = Not at all Feeling afraid as if something awful might happen: 0 = Not at all Total PORFIRIO-7 score (0-4 normal; 5-9 mild; 10-14 moderate; 15-21 severe): 0 Source: Developed by Drs. Cristi Arceo, Radha Egan, Jewel Nash and colleagues, with an educational jose from [employer] Review of Systems Const Denies chills, Denies fatigue, Denies fever(s) and Denies headache(s) ENT Denies dysphagia, Denies dizziness, Denies otalgia, Denies headache(s), Reports hearing loss, Denies nasal congestion, Denies neck pain, Denies odynophagia and Reports sore throat Card Denies chest pain, Denies palpitations and Denies dyspnea Resp Denies chest congestion, Denies cough and Denies dyspnea GI Denies abdominal pain, Denies constipation, Denies dysphagia, Denies heartburn, Denies diarrhea, Denies nausea, Denies odynophagia and Denies vomiting Denies difficulty voiding, Denies nocturia, Denies dysuria, Reports urinary incontinence (at times) and Denies urinary urgency Musc Reports back pain (over the lower back; increased pain and spasms over both sides of spine) and Denies neck pain Skin/Breast Denies rash Neuro Denies dizziness and Denies headache(s) Psych Reports anxiety Endo Denies fatigue and Denies palpitations Physical exam (Primary Care) Vital Signs: Last Vital Signs Pulse 81 03/24/25 15:21 BP 162/98 H 03/24/25 15:21 Pulse Ox 96 03/24/25 15:21 Oxygen Delivery Method Room Air 03/24/25 15:21 BMI result Body Mass Index 29.9 Tobacco/Smoking Status: Tobacco use Status Tobacco use date assessed 03/24/25 03/24/25 15:23 Patient Tobacco Use Status Current someday Tobacco 03/24/25 15:16 Tobacco use type Cigarette 03/24/25 15:16 e-Cigarette/Vaping Use Never Used 03/24/25 15:16 PHQ-9: PHQ-9 Score PHQ-9: Total score 0 03/24/25 16:08 Depression Screening Interpretation: Negative Thrive Assessment: Date of Thrive Assessment Date Thrive assessed 03/24/25 03/24/25 15:23 Currently or been in a relationship where the following occur: I choose not to answer Const General: no acute distress and alert HENMT Ears: TM's normal bilaterally and EAC's normal Throat: Yes posterior oropharynx normal and Yes tonsils normal (no TP congestion) Neck Neck: Yes supple and No lymphadenopathy Thyroid: Thyroid normal Resp Auscultation: clear to auscultation bilaterally, no crackles and no rales Cardio Rate: regular rate Rhythm: regular rhythm Heart sounds: no murmurs GI Palpation (GI): Soft to palpation and nontender Auscultation: normal bowel sounds General: Yes no CVA tenderness Back/Spine/Pelvis Back: no CVA tenderness Thoracic/Lumbar Spine: lumbar spinal tenderness Skin Rashes: no rashes Extrem General: Yes no clubbing, cyanosis or edema Results Reviewed Results Reviewed: Laboratory Tests 12/29/24 12/29/24 03/19/25 11:07 11:11 09:26 WBC 9.6 Hgb 14.0 Hct 41.6 Plt Count 299 Sodium 145 Potassium 3.3 Creatinine 1.03 Estimated GFR 56 Random Glucose 80 Fasting Glucose 84 Calcium 8.6 AST 38 H ALT 46 H Alkaline Phosphatase 118 H B-Natriuretic Peptide 43 Triglycerides 100 Cholesterol 154 LDL Cholesterol, Calc 71 HDL Cholesterol 63 25-OH Vitamin D Total 44.0 TSH 1.95 Ur Specific Seffner 1.025 Urine Protein Trace Urine Glucose (UA) Negative Urine Blood Negative Urine Nitrite Negative Ur Leukocyte Esterase Negative Coding Level of Care Code Est Pt Level 4 (08530) Diagnoses Essential hypertension I10 Cardiomyopathy, unspecified type I42.9 Cardiomyopathy type: unspecified Moderate persistent asthma without complication J45.40 Asthma complication type: uncomplicated Asthma persistence: persistent Asthma severity: moderate Allergic rhinitis, unspecified seasonality, unspecified trigger J30.9 Allergic rhinitis seasonality: unspecified Allergic rhinitis trigger: unspecified Chronic gastritis with bleeding, unspecified gastritis type K29.51 Chronicity: chronic Gastritis type: unspecified gastritis Vitamin D deficiency E55.9 Lumbar spondylosis M47.816 Primary insomnia F51.01 Insomnia type: primary Anxiety F41.9 Smoker F17.200 Overweight (BMI 25.0-29.9) E66.3 Additional Codes PHQ-9 - 83584 - PHQ-9 Billing: Yes ([id number]) Assessment & Plan Assessment & Plan (1) Essential hypertension: Code(s): I10 - Essential (primary) hypertension Category: Medical Plan: Reinforced low sodium diet - goal is systolic BP of at least 120 to 130 mm or less Continue Entresto 49-51 mg QD Per cardiology recommendation, will now increase Carvedilol to 6.25 mg BID as her blood pressure remains elevated She is reminded to continue monitoring her blood pressure regularly (2) Cardiomyopathy: Code(s): I42.9 - Cardiomyopathy, unspecified Category: Medical Qualifiers: Cardiomyopathy type: unspecified Qualified Code(s): I42.9 - Cardiomyopathy, unspecified Plan: Results of her labs done a few days ago reviewed and discussed with patient but these did not include her fasting lipids, which were at goal when they were last checked in December 2024 Her echocardiogram done back in February 2022 revealed moderately decreased left ventricular systolic function, with the visually estimated ejection fraction between 30-35%. The basal inferior segment is akinetic but no obvious valvular pathology was seen on the study Continue Aspirin 81 mg QD and Carvedilol, which will be increased to 6.25 mg BID today; she self-discontinued her Isosorbide Mononitrate ER 60 mg QD and Atorvastatin a few months ago but is now back on Atorvastatin 40 mg QD She still has not been able to get her nuclear stress testing done because of her uncontrolled blood pressure Follow up with cardiology as scheduled Will have her check her labs and fasting lipids in 3 months for follow up (3) Asthma: Code(s): J45.909 - Unspecified asthma, uncomplicated Category: Medical Qualifiers: Asthma complication type: uncomplicated Asthma persistence: persistent Asthma severity: moderate Qualified Code(s): J45.40 - Moderate persistent asthma, uncomplicated Plan: Controlled Continue Breo Ellipta 100-25 mcg 1 inhalation QD and Albuterol HFA 2 inhalations Q 6 hours PRN (4) Allergic rhinitis: Code(s): J30.9 - Allergic rhinitis, unspecified Category: Medical Qualifiers: Allergic rhinitis seasonality: unspecified Allergic rhinitis trigger: unspecified Qualified Code(s): J30.9 - Allergic rhinitis, unspecified Plan: Continue Fluticasone 50 mcg nasal spray QD PRN and Loratadine 10 mg QD PRN (5) Hemorrhagic gastritis: Code(s): K29.71 - Gastritis, unspecified, with bleeding Category: Medical Qualifiers: Chronicity: chronic Gastritis type: unspecified gastritis Qualified Code(s): K29.51 - Unspecified chronic gastritis with bleeding Plan: EGD done back in 2016 ([address] Dr[address] Llanos) revealed findings of hemorrhagic gastritis with a small hiatal hernia Reinforced dietary restrictions Continue Omeprazole 40 mg QD Follow up with GI as scheduled (6) Vitamin D deficiency: Code(s): E55.9 - Vitamin D deficiency, unspecified Category: Medical Plan: Continue Vitamin D3 2000 units QD (7) Lumbar spondylosis: Code(s): M47.816 - Spondylosis without myelopathy or radiculopathy, lumbar region Category: Medical Plan: Reinforced activity and weight lifting restrictions She was taking Ibuprofen 800 mg TID PRN for pain but have advised her that with her cardiac issues, she should NOT continue taking Ibuprofen (8) Insomnia: Code(s): G47.00 - Insomnia, unspecified Category: Medical Qualifiers: Insomnia type: primary Qualified Code(s): F51.01 - Primary insomnia Plan: Sleep hygiene reinforced She used to take Rozerem but states that she is currently not taking anything for sleep (9) Anxiety: Code(s): F41.9 - Anxiety disorder, unspecified Category: Medical Plan: She was taking Citalopram 20 mg QD in the past but self-discontinued this at some point Follow up with psychiatry as scheduled (10) Smoker: Code(s): F17.200 - Nicotine dependence, unspecified, uncomplicated Category: Social Hx Plan: Patient is counseled again on complete smoking cessation (11) Overweight (BMI 25.0-29.9): Code(s): E66.3 - Overweight Category: Medical Plan: Reinforced diet/exercise as tolerated/lose weight Plan Follow-up in 3 months Orders: Orders Lipid Panel 3 Months E78.00 - Pure hypercholesterolemia, unspecified TSH reflex Free T4 3 Months E78.00 - Pure hypercholesterolemia, unspecified UA CC w/rflx Micro + Cult 3 Months R30.0 - Dysuria Vitamin D 25-OH Total 3 Months E55.9 - Vitamin D deficiency, unspecified Complete Blood Count Auto Diff 3 Months D64.9 - Anemia, unspecified Comprehensive [place]. Panel Fast 3 Months E78.00 - Pure hypercholesterolemia, unspecified Medications: Changed From carvedilol must administer with a meal/food dose decreased 3.125 mg PO BID 30 days 60 tabs 5RF To carvedilol must administer with a meal/food dose decreased 6.25 mg PO BID 60 tabs 5RF 30 days
[2025-03-24 15:21] VITALS: BP 162/98; PULSE 81; O2SAT 96; BMI 29.9
== END 2025-03-24 16:20 | disposition home or self-care (01) ==
LOC: HO.HMCH 15:05
PROVIDERS: PCP Internal Medicine; Visit Provider Internal Medicine
DX: I10 Essential (primary) hypertension (principal); I42.9 Cardiomyopathy, unspecified; J45.40 Moderate persistent asthma, uncomplicated; J30.9 Allergic rhinitis, unspecified; K29.51 Unspecified chronic gastritis with bleeding; E55.9 Vitamin D deficiency, unspecified; M47.816 Spondylosis without myelopathy or radiculopathy, lumbar region; F51.01 Primary insomnia; F41.9 Anxiety disorder, unspecified; F17.200 Nicotine dependence, unspecified, uncomplicated; E66.3 Overweight

== ENCOUNTER → 2025-03-24 15:04 | Outpatient (BNVA) | payer OTHER, SELFPAY | PROVIDERS: PCP Internal Medicine; Visit Provider Internal Medicine | DX: I10 Essential (primary) hypertension (principal); I42.9 Cardiomyopathy, unspecified; J45.40 Moderate persistent asthma, uncomplicated; J30.9 Allergic rhinitis, unspecified; K29.51 Unspecified chronic gastritis with bleeding; E55.9 Vitamin D deficiency, unspecified; M47.816 Spondylosis without myelopathy or radiculopathy, lumbar region; F51.01 Primary insomnia; F41.9 Anxiety disorder, unspecified; F17.210 Nicotine dependence, cigarettes, uncomplicated; E66.3 Overweight; Z68.29 Body mass index [BMI] 29.0-29.9, adult | CPT/HCPCS: 96127; 99212 ==